=== PATIENT | female | born 1945 | race Caucasian/White ===

== ENCOUNTER 2017-10-07 10:17 | Inpatient (IN) | payer MEDICARE ==
[2017-10-07 10:50] LABS: INR-International Normal Ratio 1.5
[2017-10-07 10:52] LABS: Actual Bicarbonate (HCO3a) 22.6 mEq/L (22-26); CO2 Tension 42.5 mmHg (35.0-45.0); Hematocrit-ABG 33.4 % (36.0-47.0); Hemoglobin (Hb) 9.9 g/dL (12.0-16.0); O2 Tension (PaO2) 91.2 mmHg (80.0-100.0); pH, Arterial 7.34 (7.35-7.45)
[2017-10-07 10:53] LABS: ALV-art Gradient 69.575 (0-20); Analyzer IN Cardio ER; Calcium, Ionized 1.2 mmol/L (1.12-1.30); Puncture Site RRA
--- NOTE | 2017-10-07 11:06 | RAD ---
PORTABLE SUPINE CHEST ONE VIEW: HISTORY: A 72-year-old female with altered mental status, unresponsive. COMPARISON: 10/20/2009 FINDINGS: Endotracheal tube is in a satisfactory location. There is cardiomegaly. Monitor leads overly the ch est. There are some mild increased markings bilaterally, possibly mild vascular congestion, but no c onfluent pneumonia, overt edema, or significant pleural effusion. IMPRESSION: 1. Cardiomegaly with probable mild vascular congestion. 2. Endotracheal tube in satisfactory location. 3. No evidence for pneumonia or overt edema. 4. Overall stable from prior study. POS: [facility]
[2017-10-07 11:08] LABS: #Lymphocytes 0.5 thou/uL (1.20-3.40); #Monocytes 0.5 thou/uL (0.11-0.59); #Neutrophils 3.8 thou/uL (1.40-6.50); %Basophils 0.2 % (0.0-1.0); %Eosinophils 0.1 % (0.0-10.0); %Lymphocytes 10.5 % (21.0-51.0); %Monocytes 9.8 % (0.0-10.0); %Neutrophils 79.4 % (42.0-75.0); Hemoglobin 10.1 g/dL (12.0-16.0); Mean Corpuscular HGB CONC 32.3 g/dL (32.0-36.0); Mean Corpuscular Hemoglobin 25.8 pg (27.0-31.0); Mean Corpuscular Volume 79.7 fl (81.0-99.0); Mean Platelet Volume 10.2 fL (7.4-10.4); Platelet Count 101 thou/uL (130-400); RBC Distribution Width 18.7 % (11.5-14.5); Red Blood Cell (RBC) Count 3.93 mill/uL (4.20-5.40); White Blood Cell (WBC) Count 4.8 thou/uL (4.8-10.8)
[2017-10-07 11:10] LABS: CKMB 0.7 ng/mL (0-6.6); Troponin I Less than 0.010 ng/mL (< 0.028)
[2017-10-07 11:19] LABS: ALT (SGPT) 16 U/L (8-55); AST (SGOT) 27 U/L (5-34); Albumin 3.5 g/dL (3.4-4.8); Alkaline Phosphatase 89 U/L (40-150); Anion Gap 8 mmol/L (10-20); BUN (Urea Nitrogen) 17 mg/dL (9.8-20.1); Bilirubin, Total 1.8 mg/dL (0.2-1.2); CK (CPK) 46 U/L (29-168); Calc. Creatinine Clearance 0 mL/min (70-130); Calcium 8.7 mg/dL (7.8-10.44); Carbon Dioxide 22 mmol/L (23-31); Chloride 110 mmol/L (98-107); Estimated GFR-MDRD Greater than 90; Globulin 3.3 g/dL (2.4-3.5); Glucose 140 mg/dL (83-110); Lipase 18 U/L (8-78); Magnesium 1.7 mg/dL (1.6-2.6); Potassium 4.1 mmol/L (3.5-5.1); Protein, Total 6.8 g/dL (6.0-8.3); Sodium 136 mmol/L (136-145)
[2017-10-07 11:34] LABS: Bilirubin Negative (Negative); Blood, Urine Negative (Negative); Clarity CLOUDY (Clear); Glucose, Urine (Dipstick) Negative (Negative); Leukocyte Large (Negative); Nitrite Negative (Negative); Protein, Urine (Dipstick) Trace mg/dL (Neg-Trace); Specific Gravity, Urine 1.017 (1.002-1.036); pH, Urine 6.5 (5.0-9.0)
[2017-10-07 11:38] LABS: Bacteria/HPF 4+ HPF (None Seen); Hyaline Casts/LPF 4-6 HYALINE CAST LPF (0-3 Hyaline); Pathc Cast-AUWi Flag 0.43 (0-2.49); RBC/HPF 0-3 HPF (0-3); Squamous Epithelial None Seen HPF (0-3)
[2017-10-07 11:39] LABS: Alcohol Less than 10 mg/dL (Less than 10)
--- NOTE | 2017-10-07 11:49 | CT ---
BRAIN CT WITH IV CONTRAST: HISTORY: A 72-year-old female with a history of altered mental status, presents to the ED via EMS, unresponsiv e. COMPARISON: 10/20/2009 FINDINGS: Minimal posterior right ethmoid sinus mucosal disease. The mastoids appear clear. There is stable a ppearing atrophy, chronic white matter ischemic changes, and some encephalomalacic changes in the lef t parietal region. No focal mass or midline shift. No intraaxial or extraaxial hemorrhage. Stable appearance from prior study. IMPRESSION: 1. Stable atrophy, chronic white matter ischemic changes, and left parietal cortical encephalomalaci c change. 2. No mass, bleed, or other acute process. 3. Minimal right ethmoid sinus mucosal disease. POS: [facility]
[2017-10-07 11:51] LABS: Medtox Reader # READER 1
[2017-10-07 11:52] LABS: Amphetamine Not Detected (NotDetected); Barbiturates Screen Not Detected (NotDetected); Benzodiazepine Screen Not Detected (NotDetected); Cocaine Metabolite Screen Not Detected (NotDetected); Medtox Control Line Valid? VALID (VALID); Methadone Not Detected (NotDetected); Methamphetamine Not Detected (NotDetected); Opiate Screen Not Detected (NotDetected); Oxycodone Screen Not Detected (NotDetected); Phencyclidine (PCP) Not Detected (NotDetected); THC/Cannabinoid Screen Not Detected (NotDetected); Tricyclic Screen Not Detected (NotDetected)
[2017-10-07 11:58] LABS: Acetaminophen Less than 6.0 mcg/mL (10.0-30.0); Salicylate Less than 8.0 mg/dL (15.0-30.0)
[2017-10-07 12:15] LABS: Digoxin 0.53 ng/mL (0.8-2.0)
[2017-10-07] MEDS ORDERED: Propofol 1,000 MG/100 ML VIAL IV PRN (13:53)
[2017-10-07] MEDS ORDERED: Morphine 4 MG/ML VIAL SLOW IVP PRN (13:53)
[2017-10-07] MEDS ORDERED: Lorazepam 2 MG/ML VIAL SLOW IVP PRN (13:53)
[2017-10-07] MEDS ORDERED: Propofol BOLUS 1,000 MG/100 ML VIAL IV PRN ×2 (13:53)
[2017-10-07] MEDS ORDERED: Fentanyl BOLUS 250 ML IVPB PRN ×2 (13:53)
[2017-10-07] MEDS ORDERED: fentaNYL Citrate/PF 2,000 MCG in Sodium Chloride 0.9% 60 ML IV SCH (13:53)
[2017-10-07 14:14] VITALS: BMI 23.7
[2017-10-07] MEDS: Sodium Chloride 0.9% 1,000 ML IV SCH ×2 (14:23→20:20)
[2017-10-07 14:41] LABS: Troponin I Less than 0.010 ng/mL (< 0.028)
[2017-10-07] MEDS ORDERED: Ondansetron HCl/PF 4 MG/2 ML Vial IVP PRN (14:55)
[2017-10-07] MEDS ORDERED: CCU Electrolyte Replacement 1 EACH FS SCH (15:00)
[2017-10-07] MEDS ORDERED: Potassium Chloride 40 MEQ in Premix Bag 1 BAG IVPB PRN (15:14)
[2017-10-07] MEDS: cefTRIAXone\\ROCEPHIN 1 GM in Syringe 10 ML IVPB SCH (15:14)
[2017-10-07] MEDS ORDERED: Potassium Phosphate 12 MMOL in Sodium Chloride 0.9% 250 ML 250 ML IV PRN (15:14)
[2017-10-07] MEDS ORDERED: Potassium Phosphate 15 MMOL in Sodium Chloride 0.9% 250 ML 250 ML IV PRN (15:14)
[2017-10-07] MEDS ORDERED: CCU ELECTROLYTE REPLACEMENT PROTOCOL FS PRN (15:14)
[2017-10-07] MEDS ORDERED: Potassium Phosphate 9 MMOL in Sodium Chloride 0.9% 100 ML IVPB PRN (15:14)
[2017-10-07] MEDS ORDERED: Potassium Chloride 20 MEQ TAB PO PRN ×2 (15:14)
[2017-10-07] MEDS ORDERED: Magnesium 2 GM/NS 0.9% 100 ML 2 GM in Premix Bag 1 BAG IVPB PRN (15:14)
[2017-10-07] MEDS ORDERED: Potassium Chloride 40 MEQ in Sodium Chloride 0.9% 250 ML 250 ML IVPB PRN (15:14)
[2017-10-07] MEDS ORDERED: Magnesium Oxide 400 MG TAB PO PRN ×2 (15:14)
[2017-10-07 17:32] LABS: Troponin I Less than 0.010 ng/mL (< 0.028)
--- NOTE | 2017-10-07 18:45 | HP ---
PRIMARY CARE PHYSICIAN: Unknown. CHIEF COMPLAINT: Found down at home. HISTORY OF PRESENT ILLNESS: The history of present illness is extremely limited as the patient is un able to give a history. She is currently intubated. The son who was at the bedside earlier who spok e with the emergency room physician was also not very familiar with the patient's medical history. Zain Umana is a 72-year-old female, the past medical history of which is currently unknown. Apparentl y, she was last known normal yesterday. Her son had called her to check on her and apparently she wa s in the process of having some type of evaluation, it looks like for weight loss, that is involuntar y weight loss, in which she was going to have a CT scan of the chest, abdomen, and pelvis, which was ordered by Dr. Michaud in our system. Her son called to make sure that she had taken the contrast pro perly and she apparently was okay yesterday. Then, he called again this morning to check on her and she did not answer the phone. He left a message and she never returned the call that is when he kevin me concerned and EMS was sent out to the house and she was found in her bed. There was no sign of an y trauma and she was not arousable. She was apparently intubated at the scene and sent to the emerge ncy room for evaluation. In the ER, she had a CT scan of the brain, which was negative for any acute process other than some chronic white matter ischemic changes. She was found to be in atrial fibril lation; however, her rate was controlled. Other lab results revealed a mild anemia and an elevated a mmonia level of 136. Her transaminases were negative or normal; however, her total bilirubin was sli ghtly elevated at 1.8. Currently, it is unclear why she is obtunded, but she is being admitted to [facility] ICU for further evaluation. No other history is obtainable. REVIEW OF SYSTEMS: Also unobtainable as the patient is intubated and obtunded and her son has since left the hospital. PAST MEDICAL HISTORY: Extrapolated from old records, it appears as if she has a history of atrial fi brillation, possible cerebrovascular accident and it appears as if she has been evaluated for cirrhos is. She is on medication for osteoporosis. PAST SURGICAL HISTORY: She has had a cataract and a lipoma of the breast removed. ALLERGIES: IBUPROFEN. SOCIAL HISTORY: Unobtainable. The patient is intubated, unable to talk. FAMILY HISTORY: Also unobtainable. MEDICATIONS: Unknown at this time. Reportedly, her son is going back to get them. In review of her records, she 2 years ago had been on Aldactone, this is in 2016, 100 mg daily, vitamins, om eprazole 40 mg daily, metoprolol XL 25 twice a day, Lasix 40 mg daily, diltiazem 30 mg twice daily, d igoxin 0.25 mg daily, Fosamax 70 mg once a week, and albuterol and again that was back in 2016. PHYSICAL EXAMINATION: GENERAL: She is obtunded; however, she does withdraw to pain. She is moving all her extremities. H er pupils are reactive. VITAL SIGNS: Her blood pressure initially was 84/55, currently it is 114/60, heart rate is ranging f rom the 80s to the low 100s. HEENT: Again, her pupils are reactive. Her sclerae are anicteric. NECK: There was no adenopathy or bruits. LUNGS: Essentially clear to auscultation. I did not appreciate any wheezing or rales. CARDIOVASCULAR: Heart rate is irregularly irregular. There were no murmurs, clicks, or rubs. ABDOMEN: Soft, it is nontender, nondistended. Positive for bowel sounds. EXTREMITIES: She has got trace edema. NEUROLOGIC: Again, neurologically, moving extremities. She withdraws to pain. Her reflexes are int act and symmetric. There are no skin lesions. LABORATORY RESULTS: Sodium 136, potassium 4.1, chloride is 110, CO2 is 22, BUN of 17, creatinine 0.6 2, glucose is 140, calcium 8.7, magnesium 1.7, lactic acid was 1.4, total bilirubin 1.8, AST 27, ALT 16, alkaline phosphatase is 89. White blood cell count is 4.8, hemoglobin 10.1, hematocrit is 31.3, platelet count was 101, MCV was 79.7. Urinalysis, she did have large leukocyte esterase and 4+ bacte duncan, too numerous to count wbc's. Urine drug screen was essentially negative. EKG again was atrial fibrillation, the rate in the 80s. CT scan of the brain was positive for some chronic ischemic disea se. ASSESSMENT AND PLAN: 1. This is a 72-year-old female that presents to the emergency room with altered mental status and ob tundation. The most likely etiology would be due to hepatic encephalopathy; however, it is unclear w hether or not she has a known history of cirrhosis, gleaning through her records, it appears as if hieu cox may have once been told she was cirrhotic and one of her medications at least in her records was sp ironolactone, which is commonly used in patients with cirrhosis. However, this will need to be furth er investigated. She is in atrial fibrillation, which could put her at risk for a massive stroke; ho be, on her CT findings, depending on what time she became altered is not consistent with cerebrova scular accident and it does not appear to be sepsis or primarily cardiac or pulmonary in origin. She will be admitted to the ICU. She has already been seen by [facility] technical specialist. We will contin ue her on ventilator support and defer further management to Pulmonary and Critical Care. 2. With regard to possible hepatic encephalopathy with elevated serum ammonia level, she will be see n by Gastroenterology, unclear whether or not to start her on lactulose possibly via NG tube. We cathy l defer further management and workup to GI. 3. With regard to atrial fibrillation, I suspect this is likely chronic. It is unclear whether or n ot she had been on any type of anticoagulation. Her INR was slightly elevated at 1.5. We will go ah ead and hold off on any anticoagulation until further information regarding her liver function is kar ilable. Her rate seems to be controlled at this time and we will continue to monitor and place her m edications for rate control as needed. 4. In general, we will continue to trend her cardiac enzymes. She does appear to have urinary tract infection and the urine culture has been obtained. We will go ahead and cover her with Rocephin in the interim. I believe she has been given a dose of this in the ER. Further recommendations are to follow.
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
[2017-10-07] MEDS ORDERED: Famotidine/PF 20 mg/2ml Vial SLOW IVP SCH (21:00)
--- NOTE | 2017-10-08 01:27 | CON ---
DATE OF CONSULTATION: 10/07/2017 GI INPATIENT CONSULTATION NOTE REQUESTING PHYSICIAN: Dr. Mauricio Macias. REASON FOR CONSULTATION: Hepatic encephalopathy. HISTORY OF PRESENT ILLNESS: Melanie Umana is a 72-year-old woman seen in the past by my GI colleag ue, Dr. Tramaine Michaud. 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 EGD in 2010 showed no esophageal varices. She also has a history of atrial fibrillation and osteoporosis. Thfreda h her cirrhosis was diagnosed about 8 years ago, she had not followed up with Dr. Michaud within the p ast 7 years. There has evidently been no recent alcohol use. She is actually seen by one of our Karlie castelan assistants in the clinic just 2 days ago for evaluation of a recent weight loss and nausea. S he was found to have labs within the past week remarkable really only for mild thrombocytopenia, but normal LFTs, normal albumin. A CT of the chest, abdomen, and pelvis is planned to work up the weight loss. However, the patient was admitted to the hospital this morning after having been found down at home. She has no prior history of overt hepatic encephalopathy, but she was found down and essentially obt unded at home. She was brought to the hospital. She is endotracheally intubated. She is not on any sedation, at this point she is somewhat responsive to voice and can track movements with her eyes, b ut she is unable to answer any questions. She is quite sleepy. Lab workup demonstrated elevated amm onia level to 136. Negative tox screen. Total bilirubin 1.8, but otherwise still normal LFTs, good renal function. INR only 1.5. Urinalysis is suggestive of UTI and she is being treated now with IV ceftriaxone. She has been hemodynamically stable, doing well on the ventilator. REVIEW OF SYSTEMS: Unable to obtain as the patient is not verbally communicate at this time. PAST MEDICAL HISTORY: Cryptogenic cirrhosis diagnosed in 2009, hereditary hemorrhagic telangiectasia s causing epistaxis, EGD in 2010 with no esophageal varices, atrial fibrillation, osteoporosis. ALLERGIES: IBUPROFEN. OUTPATIENT MEDICATIONS: Lasix 40 mg daily, spironolactone 100 mg daily, alendronate, omeprazole 40 m g daily, diltiazem 30 mg t.i.d., digoxin and metoprolol. INPATIENT MEDICATIONS: IV Rocephin, IV famotidine. SOCIAL HISTORY: Unable to obtain from the patient. Evidently, she has not had any alcohol recently. FAMILY HISTORY: Unable to obtain from the patient. Per our office records, there is no family histo ry of liver disease. PHYSICAL EXAMINATION: VITAL SIGNS: Temperature 98.5, pulse 85, blood pressure 99/48, 97% oxygen saturation on room air. GENERAL: The patient is somnolent, but quickly falls asleep again. She is able to shake her head no when asked if she is in pain or she remembers what happened. SKIN: No jaundice, no rash visible or palpable. EYES: No scleral icterus. Extraocular movements are intact. ENT: She is endotracheally intubated. Nasogastric tube on low intermittent suction, suctioning out some clear gastric contents. LYMPH: No submandibular, supraclavicular lymphadenopathy. THYROID: Nontender to palpation. HEART: Regular rate and rhythm. LUNGS: Clear lung sounds on the ventilator. ABDOMEN: Nondistended. Bowel sounds present, soft, nontender to palpation throughout. No masses or organomegaly appreciated. EXTREMITIES: No peripheral edema. VESSELS: Radial pulses 2+ bilaterally. NEUROLOGICAL: Cranial nerves II through XII intact bilaterally. No focal deficits. LABORATORY STUDIES: WBC 4.8, hemoglobin 10.1, platelets 101. INR 1.5, BUN 17, creatinine 0.62, tota l bilirubin 1.8, alkaline phosphatase 89, AST 27, ALT 16, albumin 3.5. Ammonia 136. BNP 349. Lacti c acid only 1.4. Troponin negative x3. TSH 0.87. Alcohol level negative. Acetaminophen level nega tive. Urine drug screen negative. IMAGING STUDIES: Chest x-ray showed cardiomegaly and mild pulmonary vascular congestion. CT of the head shows no acute process. ASSESSMENT AND PLAN: 1. Altered mental status. 2. Hepatic encephalopathy, this would be her first presentation of this. 3. Cryptogenic cirrhosis, stage IV based on liver biopsy 8 years ago. 4. Recent weight loss of 40 pounds over the past 6 months. The patient's presentation is certainly consistent with overt hepatic encephalopathy with such an elevated ammonia. Interestingly, the patie nt has no prior history of this. It does appear she has a urinary tract infection and I suppose this could have precipitated it. We would recommend continuing to treat the UTI. She is currently on Ro cephin. Lactulose should be started per the nasogastric tube and I have ordered this at 30 mg 4 time s daily. We will follow along for her mental status. With regard to the recent weight loss, this was going to be worked up on an outpatient basis. Depend ing on the patient's clinical course, we could consider going ahead and getting that CT of the chest, abdomen, and pelvis while she is inpatient. Note recent AFP was normal. Thank you for the consultation. Please call back with questions or concerns.
[2017-10-08] MEDS: Pantoprazole 40 MG VIAL IVP SCH ×4 (03:45→21:39)
[2017-10-08 04:27] LABS: INR-International Normal Ratio 1.5; Prothrombin Time 18.1 SEC (12.0-14.7)
[2017-10-08 08:23] LABS: Actual Bicarbonate (HCO3a) 22.2 mEq/L (22-26); Base Excess (BEa) -0.9 mEq/L (0 (+/-) 2.5); O2 Tension (PaO2) 72.8 mmHg (80.0-100.0); pH, Arterial 7.47 (7.35-7.45)
[2017-10-08 08:24] LABS: Calcium, Ionized 1.1 mmol/L (1.12-1.30); Hematocrit-ABG 31.3 % (36.0-47.0); Hemoglobin (Hb) 9.3 g/dL (12.0-16.0); Puncture Site RBA
--- NOTE | 2017-10-08 09:32 | PDOC.PN ---
- Subjective Encounter Start Date: 10/08/17 Encounter Start Time: 09:30 Ms. Umana is awake and alert, she was seen in follow-up of hepatic encephalopathy. She is intubated and following commands. She indicates no problems this morning. - Objective Resuscitation Status: Resuscitation Status FULL:Full Resuscitation MAR Reviewed: Yes Vital Signs & Weight: Vital Signs (12 hours) Temp Pulse Resp BP 10/08/17 09:00 86 111/57 L 10/08/17 04:00 99.6 F 28 H 10/08/17 02:00 16 10/08/17 00:00 99.2 F 18 10/07/17 22:00 22 H Weight Admit Weight 138 lb 3.677 oz Weight 138 lb 3.677 oz Most Recent Monitor Data Heart Rate from ECG 99 NIBP 112/49 NIBP BP-Mean 90 Respiration from ECG 20 SpO2 96 I&O: 10/07/17 10/08/17 10/09/17 06:59 06:59 06:59 Intake Total 1138 Output Total 1225 Balance -87 Result Diagrams: 10/07/17 10:57 10/07/17 10:38 Phys Exam - Physical Examination HEENT: PERRLA, sclera anicteric Respiratory: no wheezing, no rales, no rhonchi, clear to auscultation bilateral Cardiovascular: RRR, no significant murmur, no rub Gastrointestinal: soft, non-tender, positive bowel sounds Musculoskeletal: edema present trace pedal edema Neurological: non-focal, moves all 4 limbs Dx/Plan (1) Hepatic encephalopathy Code(s): K72.90 - HEPATIC FAILURE, UNSPECIFIED WITHOUT COMA Status: Acute (2) Cirrhosis, cryptogenic Code(s): K74.69 - OTHER CIRRHOSIS OF LIVER Status: Acute (3) UTI (urinary tract infection) Status: Acute (4) Atrial fibrillation Code(s): I48.91 - UNSPECIFIED ATRIAL FIBRILLATION Status: Acute - Plan * Hepatic encephalopathy- she has improved with Lactulose. Plan is for extubation this morning * UTI- urine culture is growing E. Coli- will continue Rocephin- pending culture results * Cirrhosis- this was diagnosed 8 years ago, GI is managing * AFIB- her heart rate is stable- no anticoagulation ( she has mild coagulopathy - likely from cirrhosis .
--- NOTE | 2017-10-08 12:06 | PRG ---
DATE OF SERVICE: 10/08/2017 SUBJECTIVE: Ms. Umana was able to be extubated a couple of hours ago. She is breathing well and sl eeping comfortably. She remains somnolent, but is more easily arousable. She is able to tell me her name and date of as well as her place of residence. She denies any abdominal pain. She canno t remember what happened to precipitate her admission. She is still slurring her speech and seems to have some word finding difficulty. Bedside swallow evaluation is pending. OBJECTIVE: VITAL SIGNS: Pulse 101, blood pressure 126/61, 97% oxygen saturation on 2 liters nasal cannula, temp erature is 97.9. GENERAL: Somnolent but arousable, no acute distress. HEART: Regular rate and rhythm. LUNGS: Clear to auscultation bilaterally. ABDOMEN: Soft and nontender to palpation throughout. EXTREMITIES: No peripheral edema. MENTAL: She is able to tell me her name and her date of as well as her place of residence, but she cannot recall any recent events. She is able to follow simple commands, but continues to slur h er speech with some word finding difficulty. There is no asterixis at this time. LABORATORY STUDIES: INR 1.5. Troponins negative. ASSESSMENT AND PLAN: 1. Hepatic encephalopathy, improving. 2. Urinary tract infection. This is being treated. This appears to be the likely precipitant of he r first episode of hepatic encephalopathy. 3. Cryptogenic cirrhosis. I advise continuing lactulose switch this to oral once she has completed her swallowing evaluation. We would start out with 30 grams t.i.d. p.r.n. as needed for a 2-3 loose bowel movements per day.
--- NOTE | 2017-10-08 12:42 | PRG ---
DATE OF SERVICE: 10/08/2017 Ms. Umana is awake and alert quickly when I walked in the room today. PHYSICAL EXAMINATION: VITAL SIGNS: She is afebrile, heart rate 98, blood pressure 131/64, respiratory rate is 21. LUNGS: Clear. HEART: Regular rhythm. ABDOMEN: Soft. EXTREMITIES: Without asymmetry. There is no repeat ammonia today. There is no lab today. Blood gas 7.47, CO2 of 31, pO2 of 72. Sodium 143, potassium 3.4, chloride 108. Ionized calcium 1.1 on the blood gas. IMPRESSION: 1. Status post intubation for altered mental status with hepatic encephalopathy, clinically improved . 2. Cirrhosis of unclear etiology. There is a note in the past that she was a heavy alcohol user. PLAN: Extubation. This has been done successfully. She will continue in the Critical Care Unit unt ma tomorrow. If she is stable she may move out of the unit tomorrow. Critical care time 30 minutes. Met with family and answered questions.
[2017-10-08] MEDS: cefTRIAXone\\ROCEPHIN 1 GM in Syringe 10 ML IVPB SCH (14:36)
--- NOTE | 2017-10-08 15:08 | PQF ---
CLINICAL DOCUMENTATION IMPROVEMENT CLARIFICATION FORM: ICD-10 Updated PLEASE DO AN ADDENDUM TO THE PROGRESS NOTE WITH ANY DOCUMENTATION UPDATES OR ADDITIONS AND CARRY THROUGH TO DC SUMMARY. THANK YOU. DATE: 10/08/17 ATTN: Dr. Kramer Please provide a response below if a more specific term indicating a diagnosis and/or acuity level for this condition can be identified. Please exercise your independent, professional judgment in responding to the clarification form. Clinical indicators are provided at the bottom of this form for your review. Thank you. [ ] Coma / Comatose [ ] Drowsiness [ ] Somnolence [ ] Does not apply to this patient [ ] Unable to determine [ X ] Other diagnosis: ___Hepatic encephalopathy from cryptogenic cirrhosis The following CLINICAL INDICATORS - SIGNS / SYMPTOMS are present in the medical record: ER REPORT: PRESENTS FOR EVALUATION OF UNRESPONSIVENESS. PER EMS GCS 3 PT, COMATOSE, UNRESPONSIVE INTUBATED IN FIELD FOR LOW GCS. ( REPORTED 3, BUT WAS FOUND TO HAVE SOME GRIMACE WITH PAINFUL STIMULI) H&P: ELEVATED AMMONIA LEVEL OF 136 PRESENTS TO ER WITH AMS AND OBTUNDATION. POSSIBLE HEPATIC ENCEPHALOPATHY RISKS: H&P: PRESENTS TO ER WITH ALTERED MENTAL STATUS AND OBTUNDATION. GI CONSULT: CRYPTOGENIC CIRRHOSIS DX IN 2009. HEPATIC ENCEPHALOPATHY TREATMENT: ORDER 10/07: RESP: VENT CONTINUOUS GI CONSULT CPOE 10/07: LACTULOSE 30 GM PO QID Thank you, Desiree (This form is maintained as a part of the permanent medical record) 2014 [employer]. All Rights Reserved Desiree Murphy RN, BSN [email or web address] Office: [phone] [facility]
--- NOTE | 2017-10-09 09:14 | PDOC.PN ---
- Subjective Encounter Start Date: 10/09/17 Encounter Start Time: 09:13 Ms. Umana was seen today in follow-up. She is now extubated, and awake and alert. She is confused, however. She had to be prompted on the year and month, she did know who is President. She did not remember any of the event leading to her hospitalization. - Objective Resuscitation Status: Resuscitation Status FULL:Full Resuscitation MAR Reviewed: Yes Vital Signs & Weight: Vital Signs (12 hours) Temp Pulse Resp Pulse Ox 10/09/17 08:00 98.9 F 10/09/17 07:53 98.9 F 90 20 97 10/09/17 04:00 99.0 F 10/09/17 00:00 98.5 F Weight Admit Weight 138 lb 3.677 oz Weight 135 lb 9.349 oz Most Recent Monitor Data Heart Rate from ECG 87 NIBP 102/51 NIBP BP-Mean 72 Respiration from ECG 23 SpO2 95 I&O: 10/08/17 10/09/17 10/10/17 06:59 06:59 06:59 Intake Total 1138 2743 120 Output Total 1225 1179 105 Balance -87 1564 15 Result Diagrams: 10/07/17 10:57 10/07/17 10:38 Phys Exam - Physical Examination HEENT: PERRLA Respiratory: no wheezing, no rales, no rhonchi, clear to auscultation bilateral Cardiovascular: no significant murmur, no rub, irregular Gastrointestinal: soft, non-tender, no distention, positive bowel sounds Musculoskeletal: no edema Neurological: normal sensation, moves all 4 limbs Dx/Plan (1) Hepatic encephalopathy Code(s): K72.90 - HEPATIC FAILURE, UNSPECIFIED WITHOUT COMA Status: Acute (2) Cirrhosis, cryptogenic Code(s): K74.69 - OTHER CIRRHOSIS OF LIVER Status: Acute (3) UTI (urinary tract infection) Status: Acute (4) Atrial fibrillation Code(s): I48.91 - UNSPECIFIED ATRIAL FIBRILLATION Status: Acute - Plan * Hepatic Encephalopathy- much improved. She is now extubated, continue Lactulose. * UTI- urine culture is growing E. Coli, which is sensitive to Rocephin- will continue * AFIB- her heart rate is controlled- no anticoagulation *
--- NOTE | 2017-10-09 09:37 | PRG ---
DATE OF SERVICE: 10/09/2017 SUBJECTIVE: The patient is doing reasonably well, albeit somewhat confused. OBJECTIVE: VITAL SIGNS: Temperature is 98.9, pulse 87, blood pressure 102/51. A 24-hour intake 2743, output 11 79. HEENT: Unremarkable. NECK: No JVD. CHEST: Clear. CARDIAC: S1, S2 regular. ABDOMEN: Soft. EXTREMITIES: No edema. Urine culture is growing E. coli. LABORATORY DATA: No new labs were obtained today. ASSESSMENT: 1. Status post acute respiratory failure related to hepatic encephalopathy. 2. Cryptogenic cirrhosis. 3. Urinary tract infection. PLAN: The patient is being moved to the medical floor. She is being treated for urinary tract infec tion with Rocephin. We will ask physical therapy to see her. She is continuing with lactulose.
--- NOTE | 2017-10-09 12:34 | PRG ---
SUBJECTIVE: Ms. Umana's mental status has continued to improve significantly. She is now awake and alert, knows where she is and can converse readily. She still feels a little bit sleepy. She is ea ting well. She has not had a bowel movement despite getting lactulose every 6 hours. OBJECTIVE: VITAL SIGNS: Temperature 98.9, pulse 110, blood pressure 108/61, and 91% oxygen saturation on 2 lite rs nasal cannula. GENERAL: No acute distress. HEART: Irregular, borderline tachycardia. LUNGS: Clear to auscultation bilaterally. ABDOMEN: Bowel sounds present, soft and nontender. EXTREMITIES: No peripheral edema. LABORATORY STUDIES: No new labs today. ASSESSMENT AND PLAN: 1. Hepatic encephalopathy, clinically improving. 2. Cryptogenic cirrhosis, otherwise stable. 3. Urinary tract infection, being treated. The patient had significant improvement in her hepatic e ncephalopathy. No asterixis today. Would continue the lactulose every 6 hours at this time. Still, she has not had a bowel movement since admission. It is possible the urinary tract infection is wha t precipitated this episode. Upon hospital discharge, the patient will continue to need to take the lactulose, titrated to 2-[address] Michaud had planned for her to have a CT of the chest, abdomen and pelvis with contrast on an outp atient basis this week, as workup for recent weight loss. From my perspective, this could be perform ed while she is an inpatient, alternatively could be deferred back to the outpatient setting.
[2017-10-09] MEDS: cefTRIAXone\\ROCEPHIN 1 GM in Syringe 10 ML IVPB SCH (16:20)
[2017-10-09] MEDS ORDERED: Sodium Chloride 0.9% 20 ML ONE (20:22)
[2017-10-09] MEDS: Pantoprazole 40 MG VIAL IVP SCH ×2 (20:50)
[2017-10-10] MEDS: Digoxin 0.25 MG TAB PO SCH (09:41)
--- NOTE | 2017-10-10 10:25 | PDOC.PN ---
- Subjective Encounter Start Date: 10/10/17 Encounter Start Time: 10:19 Dong Brothers was seen today in follow-up. She does not have any complaints this morning. She denies abdominal pain, no nausea or vomiting - Objective Resuscitation Status: Resuscitation Status FULL:Full Resuscitation MAR Reviewed: Yes Vital Signs & Weight: Vital Signs (12 hours) Temp Pulse Resp BP BP Pulse Ox 10/10/17 09:41 115 H 10/10/17 08:00 98.8 F 104 H 16 107/52 L 97 10/10/17 04:00 98.4 F 108 H 17 109/53 L 92 L 10/10/17 00:00 95 10/09/17 23:51 98.8 F 99 16 98/55 L 96 Weight Admit Weight 138 lb 3.677 oz Weight 138 lb 11.2 oz Most Recent Monitor Data Heart Rate from ECG 122 NIBP 118/59 NIBP BP-Mean 78 Respiration from ECG 19 SpO2 93 I&O: 10/09/17 10/10/17 10/11/17 06:59 06:59 06:59 Intake Total 2743 1020 Output Total 1179 1455 Balance 1564 -435 Result Diagrams: 10/07/17 10:57 10/07/17 10:38 Phys Exam - Physical Examination HEENT: PERRLA Respiratory: no wheezing, no rales, no rhonchi, clear to auscultation bilateral Cardiovascular: no significant murmur, no rub, irregular Gastrointestinal: soft, non-tender, no distention, positive bowel sounds Musculoskeletal: no edema Dx/Plan (1) Hepatic encephalopathy Code(s): K72.90 - HEPATIC FAILURE, UNSPECIFIED WITHOUT COMA Status: Acute (2) Cirrhosis, cryptogenic Code(s): K74.69 - OTHER CIRRHOSIS OF LIVER Status: Acute (3) UTI (urinary tract infection) Status: Acute (4) Atrial fibrillation Code(s): I48.91 - UNSPECIFIED ATRIAL FIBRILLATION Status: Acute - Plan * Hepatic Encephalopathy- clinically improved- Continue Lactulose * AFIB- her heart rate is a bit elevated- however I spoke with her son over the phone, and he found her medication list. She has not been receiving Metoprolol. - will re-start this * UTI- continue Rocephin, and will transition her to an oral antibiotic at discharge * CT- scan of the chest abdomen and pelvis was planned by Dr. Michaud to evaluate abnormal weight loss- will order this during the hospital stay * Agree with PT * Will re-start her home medications.
[2017-10-10 10:36] LABS: #Lymphocytes 0.8 thou/uL (1.20-3.40); #Monocytes 0.6 thou/uL (0.11-0.59); #Neutrophils 3.3 thou/uL (1.40-6.50); %Basophils 0.6 % (0.0-1.0); %Eosinophils 0.9 % (0.0-10.0); %Lymphocytes 16.8 % (21.0-51.0); %Neutrophils 68.7 % (42.0-75.0); Hemoglobin 9.6 g/dL (12.0-16.0); Mean Corpuscular HGB CONC 31.3 g/dL (32.0-36.0); Mean Corpuscular Hemoglobin 25.2 pg (27.0-31.0); Mean Corpuscular Volume 80.3 fl (81.0-99.0); Mean Platelet Volume 4.6 fL (7.4-10.4); Platelet Count 86 thou/uL (130-400); Red Blood Cell (RBC) Count 3.83 mill/uL (4.20-5.40); White Blood Cell (WBC) Count 4.8 thou/uL (4.8-10.8)
[2017-10-10 10:54] LABS: Anion Gap 8 mmol/L (10-20); BUN (Urea Nitrogen) 7 mg/dL (9.8-20.1); Calc. Creatinine Clearance 90 mL/min (70-130); Calcium 8.9 mg/dL (7.8-10.44); Carbon Dioxide 24 mmol/L (23-31); Chloride 107 mmol/L (98-107); Estimated GFR-MDRD Greater than 90; Glucose 125 mg/dL (83-110); Potassium 3.1 mmol/L (3.5-5.1); Sodium 136 mmol/L (136-145)
--- NOTE | 2017-10-10 12:58 | PRG ---
DATE OF SERVICE: 10/10/2017 SUBJECTIVE: Ms. Umana is feeling pretty well today. She feels mentally clear and alert. No abdomi nal pain, nausea, or vomiting. She is drinking contrast for planned CT of the abdomen and pelvis lat er today. OBJECTIVE: VITAL SIGNS: Temperature 98.8, pulse 115, blood pressure 107/58, 97% oxygen saturation on room air. GENERAL: No acute distress. HEART: Regular rate and rhythm. LUNGS: Clear to auscultation bilaterally. ABDOMEN: Mild distention. Bowel sounds present, soft, nontender to palpation. EXTREMITIES: No peripheral edema. LABORATORY STUDIES: WBC 4.8, hemoglobin 9.6, and platelets 86. Sodium 136, potassium 3.1, BUN 7, cr eatinine 0.55. Ammonia level down to 42, glucose 125. ASSESSMENT AND PLAN: 1. Hepatic encephalopathy, appears to be resolved, now on lactulose. This should be continued. 2. Cryptogenic cirrhosis, otherwise stable. 3. Urinary tract infection, being treated. 4. Weight loss. The patient is planning for CT of the abdomen and pelvis later today, has had been arranged by Dr. Michaud in the outpatient setting. Please call back with questions or concerns.
--- NOTE | 2017-10-10 13:57 | PRG ---
DATE OF SERVICE: 10/10/2017 SUBJECTIVE: The patient is much more alert and awake this morning. OBJECTIVE: VITAL SIGNS: Temperature 97.6, pulse 87, respiration 16, O2 sat 99%, blood pressure 117/58. HEENT: Unremarkable. NECK: No JVD. LUNGS: Clear. CARDIOVASCULAR: S1, S2 regular. ABDOMEN: Soft. EXTREMITIES: No edema. LABORATORY DATA: White blood cell count 10.8, hematocrit 29.1, platelet count 221. Sodium 137, pota ssium 3.7, chloride 99, CO2 29, BUN 21, creatinine 3.9, glucose 176. ASSESSMENT: 1. Chronic renal failure. 2. Abnormal lung density. PLAN: Repeat chest x-ray or CT scan in about 3 weeks. He is continuing antibiotics. I think he is probably safe for discharge by tomorrow. I would recommend transitioning the Omnicef as an outpatien t and giving him a total of 7 days of antibiotics between inpatient and outpatient. I have told him to follow up in the office in 2-3 weeks.
[2017-10-10] MEDS ORDERED: ISOVUE-370 76%-LOCM 1 ML ONE (14:23)
--- NOTE | 2017-10-10 14:30 | PRG ---
DATE OF SERVICE: 10/10/2017 SUBJECTIVE: The patient is awake and alert, in no distress. OBJECTIVE: VITAL SIGNS: Temperature 98.0, pulse 118, respiration 16, O2 sat 98%, blood pressure 137/63. HEENT: Unremarkable. NECK: No adenopathy or JVD. LUNGS: Slightly diminished breath sounds at both bases. CARDIOVASCULAR: S1, S2 regular. ABDOMEN: Soft, nontender. EXTREMITIES: No edema. CT of the abdomen, chest, and pelvis has not been officially read by Radiology. My first review of t he chest film shows a small left pleural effusion and even smaller right pleural effusion. There is some rounded atelectasis versus infiltrate in the left base. I do not see any discrete lung nodules and the only thing I have seen in the abdomen is an IVC filter, but again official reading is pending . ASSESSMENT: 1. Status post mechanical ventilation related hepatic encephalopathy. 2. Cryptogenic cirrhosis. PLAN: She is continuing treatment for the encephalopathy with lactulose. She is currently on ceftri axone. No further recommendations.
[2017-10-10] MEDS: cefTRIAXone\\ROCEPHIN 1 GM in Syringe 10 ML IVPB SCH (14:55)
--- NOTE | 2017-10-10 15:14 | CT ---
CT CHEST WITH CONTRAST CT ABDOMEN WITH CONTRAST CT PELVIS WITH CONTRAST: Date: 10/10/17 HISTORY: Involuntary weight loss. COMPARISON: CT abdomen and pelvis from 2010. FINDINGS: Moderate left effusion. Mild interstitial thickening of the lung bases, as well as in the periphery o f the upper lobes. There is some ground-glass opacity in the superior segment of the left lower lobe. Heart size is markedly enlarged. Biatrial enlargement. There is a nodular contour of the liver with a heterogeneous appearance. The stomach is distended wit h ingested material and contrast. There is marked dilatation of the superior mesenteric vein with extensive collaterals. There is aneur ysmal dilatation of the right gonadal vein collaterals. An IVC filter is in place just caudal to the renal veins. There is mild prominence of the right renal collecting system and renal pelvis. Mild ectasia of the u reters. There is a fat and fluid containing umbilical hernia. No dilated loops of large or small bowel. Spleen mildly enlarged. Pancreas mildly atrophic with some prominence of the main pancreatic duct to pancreatic head. Nonobstructing renal calculi bilaterally. Left femoral nail is in place. IMPRESSION: 1. 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 2. Cardiomegaly with mild edema. 3. Ground-glass opacity in the superior segment of the left lower lobe, likely atypical infection or edema. Follow-up recommended. 4. Collateral vessels throughout the anterior left chest wall suggesting elevated right heart pressu res. 5. Hepatic cirrhosis. 6. Cholelithiasis without evidence of cholecystitis. 7. Fat and fluid containing umbilical hernia without evidence of bowel obstruction. POS: [facility]
[2017-10-11 05:14] LABS: Anion Gap 9 mmol/L (10-20); BUN (Urea Nitrogen) 7 mg/dL (9.8-20.1); Calc. Creatinine Clearance 82 mL/min (70-130); Calcium 8.6 mg/dL (7.8-10.44); Carbon Dioxide 24 mmol/L (23-31); Chloride 106 mmol/L (98-107); Estimated GFR-MDRD Greater than 90; Glucose 104 mg/dL (83-110); Potassium 3.6 mmol/L (3.5-5.1); Sodium 135 mmol/L (136-145)
[2017-10-11] MEDS ORDERED: Spironolactone 100 MG TAB PO SCH (09:00)
[2017-10-11] MEDS ORDERED: Furosemide 40 MG TAB PO SCH (09:00)
[2017-10-11] MEDS: Digoxin 0.25 MG TAB PO SCH (09:17)
--- NOTE | 2017-10-11 10:12 | PDOC.PN ---
- Subjective Encounter Start Date: 10/11/17 Encounter Start Time: 10:10 Ms. Umana was seen today in follow-up. She does not have any complaints today. she appears to be at her baseline level of functioning. - Objective Resuscitation Status: Resuscitation Status FULL:Full Resuscitation MAR Reviewed: Yes Vital Signs & Weight: Vital Signs (12 hours) Temp Pulse Resp BP BP BP Pulse Ox 10/11/17 08:30 98.3 F 82 18 105/54 L 95 10/11/17 03:52 98.2 F 101 H 16 103/51 L 92 L 10/11/17 00:00 98.4 F 100 16 116/56 L 96 10/10/17 22:24 125 H 103/55 L Weight Admit Weight 138 lb 3.677 oz Weight 138 lb 3.2 oz Most Recent Monitor Data Heart Rate from ECG 122 NIBP 118/59 NIBP BP-Mean 78 Respiration from ECG 19 SpO2 93 I&O: 10/10/17 10/11/17 10/12/17 06:59 06:59 06:59 Intake Total 1020 1370 Output Total 1455 900 Balance -435 470 Result Diagrams: 10/10/17 10:26 10/11/17 04:43 Phys Exam - Physical Examination HEENT: PERRLA Respiratory: no wheezing, no rales, no rhonchi, clear to auscultation bilateral Cardiovascular: RRR, no significant murmur, no rub Gastrointestinal: soft, non-tender, positive bowel sounds Musculoskeletal: no edema Dx/Plan (1) Hepatic encephalopathy Code(s): K72.90 - HEPATIC FAILURE, UNSPECIFIED WITHOUT COMA Status: Acute (2) Cirrhosis, cryptogenic Code(s): K74.69 - OTHER CIRRHOSIS OF LIVER Status: Acute (3) UTI (urinary tract infection) Status: Acute (4) Atrial fibrillation Code(s): I48.91 - UNSPECIFIED ATRIAL FIBRILLATION Status: Acute - Plan * Hepatic Encephalopathy- resolved * Cirrhosis- stable * UTI- can transition to Omnicef * Stable for discharge home.
--- NOTE | 2017-10-11 10:47 | DIS ---
DATE OF ADMISSION: 10/07/2017 DATE OF DISCHARGE: 10/11/2017 PRIMARY CARE PHYSICIAN: Dr. Avitia. DISCHARGE DIAGNOSES: 1. Acute hepatic encephalopathy. 2. Cryptogenic cirrhosis. 3. Chronic permanent atrial fibrillation. 4. Urinary tract infection due to Escherichia coli. 5. Osteoporosis. DISCHARGE MEDICATIONS: Include Omnicef 300 mg twice a day for 3 days, Fosamax 70 mg weekly, digoxin 0.25 mg daily, diltiazem 30 mg twice a day, furosemide 40 mg daily, lactulose 30 g q.i.d., Toprol-XL 25 mg twice a day, omeprazole 40 mg daily, and spironolactone 100 mg a day. CODE STATUS: FULL CODE. ALLERGIES: IBUPROFEN. PROCEDURES DONE DURING ADMISSION: The patient had a CT scan of the abdomen, chest and pelvis showing an internal infrarenal IVC filter with marked dilatation of the superior mesenteric vein and collate ral gonadal vessels with aneurysmal dilatation, cardiomegaly with mild edema. There was some ground glass opacity in the superior segment of the left lower lobe, likely atypical infection or edema. Th ere was collateral vessels throughout the anterior chest wall suggesting elevated right heart pressur es, hepatic cirrhosis, cholelithiasis without evidence of cholecystitis and there was some fat and fl uid containing umbilical hernia and there was no evidence of bowel obstruction. The patient also had a CT scan of the brain showing stable atrophy and there was some chronic ischemic white matter pratt es, left parietal cortical encephalomalacic change. There was no mass, bleed or other acute process. HOSPITAL COURSE: Ms. Umana is a pleasant 72-year-old female who was found down at home by her son. EMS was called and she was brought to the hospital. She was intubated primarily for airway protecti on. It was found that her ammonia level was elevated at 136. She had never had an episode of hepati c encephalopathy, even though she has 8-year history of cryptogenic cirrhosis. It is felt that the u rinary tract infection that she was also found to have likely tipped her over into hepatic encephalop athy. She was placed on lactulose and her mental capacity improved. She was able to be extubated an d eventually discharged home. She will be discharged on Omnicef for continued treatment of the urina ry tract infection, which grew E. coli which was pansensitive. She will also be placed on lactulose to prevent future episodes of hepatic encephalopathy. She is also found to be in atrial fibrillation , but this appears to be a permanent finding. She is not on anticoagulation. It is thought to be be cause she is auto anticoagulated due to her liver failure and we will continue her previous medicatio ns which she had been taking for atrial fibrillation. I was in close contact with the patient's son over the telephone and he plans to bring her home with him and possibly consider placement if needed in the future.
[2017-10-11 11:48] VITALS: BP 120/52; TEMP 99
--- NOTE | 2017-10-11 13:37 | PRG ---
DATE OF SERVICE: 10/11/2017 SUBJECTIVE: Melanie is in no distress. OBJECTIVE: VITAL SIGNS: She is afebrile, heart rate is 90, respiratory rate is 18, oximetry is 95 on room air, blood pressure 120/52. LUNGS: Clear. HEART: Regular rhythm. ABDOMEN: Soft. IMPRESSION: 1. Hepatic encephalopathy, resolved. I have reminded her that it is imperative that she take the me dicine as prescribed by the environmental services associate. 2. Xkvjn-[id number]-Wnhrh with only upper airway manifestations. She has never had any pulmonary abnorma lities. 3. Abnormal chest CT with an increase in interstitial markings at her bases. I would suspect that t his may be aspiration mediated. Given that she presented unresponsive, simply repeat a chest radiogr aph in a couple of months. I wrote my recommendation down for her after seeing her in my clinic. Giulia cox has my number.
--- NOTE | 2017-10-11 13:45 | PRG ---
DATE OF SERVICE: 10/11/2017 Ms. Umana was seen a week ago by Dr. Brady with regarding hepatic encephalopathy. She came in with s su hepatic encephalopathy and ultimately was found to have urinary tract infection with E. coli wh ich was felt to be the etiology of this. Blood cultures have been negative. Presently, she states s he is going to go home with her son for a little while. PHYSICAL EXAMINATION: VITAL SIGNS: T-max 100.9, current 99, pulse 90, blood pressure 120/52. ABDOMEN: Soft, nontender. She is mildly icteric. INR is 1.5. Hemoglobin was 9.6 with an MCV of 80. Potassium 3.6, BUN and cr eatinine are 7 and 0.61. Ammonia was 42 yesterday, down from 136. ASSESSMENT: 1. Hepatic encephalopathy, markedly improved. 2. Escherichia coli, bladder infection, likely cause encephalopathy. 3. Weight loss. The patient had a CAT scan of abdomen and pelvis with regards to that. That was go ing to be done in the outpatient setting. She had lost about 20 pounds so a chest, abdomen, and pelv is was done, showed gallstones without cholecystitis, fat and fluid, umbilical hernia. Collateral ve ssels throughout the anterior left chest which also suggest right heart increased heart pressures, ca rdiomegaly, dilated infrarenal IVC. 4. Cryptogenic cirrhosis. RECOMMENDATIONS: Continue antibiotics and lactulose. I would be happy to see her back in office in 2 weeks. I recommend she hold off on diuretics until she is getting back on her regular diet. Recom mend she avoid sedatives, benzodiazepines and antihistamine over the counter medications as these can exacerbate encephalopathy.
[2017-10-11] MEDS: cefTRIAXone\\ROCEPHIN 1 GM in Syringe 10 ML IVPB SCH (15:14)
== END 2017-10-11 16:02 | disposition home or self-care (01) | DRG 441 ==
LOC: ERS 10:17 → CCU 12:45 → 2NO 10-09 19:10
PROVIDERS: ADMIT Internal Medicine; ATTEND Internal Medicine
PROC: 5A1935Z Respiratory Ventilation, Less than 24 Consecutive Hours (ICD-10-PCS; principal; 2017-10-07)
DX: K72.90 Hepatic failure, unspecified without coma (principal); J96.00 Acute respiratory failure, unspecified whether with hypoxia or hypercapnia; I78.0 Hereditary hemorrhagic telangiectasia; I48.2 Chronic atrial fibrillation; D69.6 Thrombocytopenia, unspecified; N39.0 Urinary tract infection, site not specified; B96.20 Unspecified Escherichia coli [E. coli] as the cause of diseases classified elsewhere; K74.69 Other cirrhosis of liver; I48.91 Unspecified atrial fibrillation; N18.9 Chronic kidney disease, unspecified; I25.10 Atherosclerotic heart disease of native coronary artery without angina pectoris; I34.0 Nonrheumatic mitral (valve) insufficiency; R91.8 Other nonspecific abnormal finding of lung field; R63.4 Abnormal weight loss; Z68.23 Body mass index [BMI] 23.0-23.9, adult; M81.0 Age-related osteoporosis without current pathological fracture; Z95.828 Presence of other vascular implants and grafts; Z87.891 Personal history of nicotine dependence; Z86.718 Personal history of other venous thrombosis and embolism; Z86.711 Personal history of pulmonary embolism; Z88.6 Allergy status to analgesic agent
CPT/HCPCS: 36415; 36416; 51702; 70450; 71045; 71260; 74177; 80048; 80053; 80162; 80306; 80307; 81003; 81015; 82140; 82550; 82553; 82805; 83605; 83690; 83735; 83880; 84443; 84484; 85025; 85610; 85730; 87040; 87077; 87086; 87186; 93005; 94002; 94003; 94760; 96374; 99292; A4216; C9113; G8978-GP-CJ; G8979-GP-CI; J0696

== ENCOUNTER 2017-11-19 09:02 | Outpatient (CLI) | payer MEDICARE ==
--- NOTE | 2017-11-19 10:32 | RAD ---
TWO VIEWS OF THE CHEST: COMPARISON: 10/07/17. HISTORY: Dyspnea. FINDINGS: Two views of the chest show an enlarged cardiomediastinal silhouette. Increased interstitial lung ma rkings are present. There is no evidence of consolidation, mass, or pleural effusion. IMPRESSION: Cardiomegaly without evidence of acute cardiopulmonary disease. POS: [facility]
== END 2017-11-19 09:03 | disposition home or self-care (01) ==
LOC: RAD 09:02
PROVIDERS: ATTEND Internal Medicine Critical Care Medicine
DX: I51.7 Cardiomegaly (principal)
CPT/HCPCS: 71046

== ENCOUNTER 2018-04-15 10:20 | Outpatient (CLI) | payer MEDICARE ==
--- NOTE | 2018-04-15 16:33 | ULT ---
HEPATIC ULTRASOUND: Comparison: 08-21-10 History: Cirrhosis. Technique: Multiplanar grayscale and color doppler images were obtained in a right upper quadrant abd ominal ultrasound. Spectral analysis of the doppler waveforms of the hepatic and splenic vasculature were performed. FINDINGS: The liver is heterogeneous in appearance consistent with patient's history of cirrhosis. No focal satish er lesions are seen. There are shadowing stones in the gallbladder. There is no gallbladder wall thic kening or pericholecystic fluid. The common bile duct is enlarged measuring 9 mm. Normal direction of flow was seen within the hepatic and splenic vasculature which also demonstrate n ormal waveforms. The spleen is normal in echogenicity without focal lesions and measures 13.5 cm in length. The pancre as is not visualized. The right kidney is normal in echogenicity without hydronephrosis or calculus a nd measures 12.4 cm in length. IMPRESSION: 1. Cholelithiasis. 2. Cirrhosis without focal liver lesions. POS: [facility]
== END 2018-04-15 10:21 | disposition home or self-care (01) ==
LOC: SCSULT 10:20
PROVIDERS: ATTEND Internal Medicine Gastroenterology
DX: K74.60 Unspecified cirrhosis of liver (principal); K72.90 Hepatic failure, unspecified without coma; K57.30 Diverticulosis of large intestine without perforation or abscess without bleeding; K22.70 Barrett's esophagus without dysplasia; D12.6 Benign neoplasm of colon, unspecified; D50.9 Iron deficiency anemia, unspecified; K80.20 Calculus of gallbladder without cholecystitis without obstruction
CPT/HCPCS: 76705

== ENCOUNTER 2019-02-28 14:18 | Outpatient (CLI) | payer MEDICARE ==
--- NOTE | 2019-02-28 15:49 | MMO ---
Bilateral MAMMO Bilat Screen [facility]. CLINICAL HISTORY: Patient is 73 years old and is seen for screening. The patient has no family history of breast cancer. The patient has no personal history of cancer. The patient has a history of left Excisional Biopsy in 2015 - benign. VIEWS: The views performed were: bilateral craniocaudal with tomosynthesis and bilateral mediolateral oblique with tomosynthesis. FILMS COMPARED: The present examination has been compared to prior imaging studies performed at [facility] on 03/24/2011, 11/30/2013, 08/21/2015 and 02/04/2018. MAMMOGRAM FINDINGS: There are scattered fibroglandular densities. Finding 1: There are new calcifications with grouped or clustered distribution seen in the middle region of the left breast at 12 o'clock. Finding 2: There is a stable area of skin thickening seen in the left breast. Finding 3: There are benign appearing calcifications seen in both breasts. IMPRESSION: FINDING 1: NEW CALCIFICATIONS IN THE LEFT BREAST REQUIRE ADDITIONAL EVALUATION. ADDITIONAL IMAGING. FINDING 2: STABLE AREA OF SKIN THICKENING IN THE LEFT BREAST IS BENIGN. FINDING 3: BENIGN APPEARING CALCIFICATIONS IN BOTH BREASTS ARE BENIGN. THE RESULTS OF THIS EXAM WERE SENT TO THE PATIENT. ACR BI-RADS Category 0 - Incomplete: Need additional imaging evaluation. [facility] will notify the patient of the need for additional imaging services. MAMMOGRAPHY NOTE: 1. A negative mammogram report should not delay a biopsy if a dominant of clinically suspicious mass is present. 2. Approximately 10% to 15% of breast cancers are not detected by mammography. 3. Adenosis and dense breasts may obscure an underlying neoplasm. Reported by: NUSRAT GANDARA MD Electonically Signed: [id number]
== END 2019-02-28 14:19 | disposition home or self-care (01) ==
LOC: BICMAMMO 14:18
PROVIDERS: ATTEND Family Medicine
DX: Z12.31 Encounter for screening mammogram for malignant neoplasm of breast (principal); N64.89 Other specified disorders of breast; Z91.89 Other specified personal risk factors, not elsewhere classified
CPT/HCPCS: 77063; 77067

== ENCOUNTER 2019-03-17 14:17 | Outpatient (CLI) | payer MEDICARE ==
--- NOTE | 2019-03-17 14:52 | MMO ---
Left Breast MAMMO Unilat Diag DDI LT+MILADY. CLINICAL HISTORY: Patient is 73 years old and is seen for diagnostic exam. The patient has no family history of breast cancer. The patient has no personal history of cancer. The patient has a history of left Excisional Biopsy in 2015 - benign. VIEWS: The views performed were: left craniocaudal spot compression magnification; left mediolateral spot compression magnification; and left mediolateral with tomosynthesis. FILMS COMPARED: The present examination has been compared to prior imaging studies performed at [facility] on 11/30/2013, 08/21/2015, 02/04/2018 and 02/28/2019. This study has been interpreted with the assistance of computer-aided detection. MAMMOGRAM FINDINGS: There are scattered fibroglandular densities. Finding 1: There are fine pleomorphic calcifications with grouped or clustered distribution seen in the left breast at 12 o'clock. Finding 2: There is an area of skin thickening seen in the left breast. This is primarily periareolar and new with respect to prior studies. IMPRESSION: FINDING 1: CALCIFICATIONS IN THE LEFT BREAST ARE SUSPICIOUS. A STEREOTACTIC BREAST BIOPSY IS RECOMMENDED. RESULTS AND RECOMMENDATIONS DISCUSSED WITH THE PATIENT AND QUESTIONS ANSWERED. FINDING 2: AREA OF SKIN THICKENING IN THE LEFT BREAST IS SUSPICIOUS. BIOPSY IS RECOMMENDED. DERMAL PUNCH BIOPSY IS RECOMMENDED. THE RESULTS OF THIS EXAM WERE SENT TO THE PATIENT. ACR BI-RADS Category 4 - Suspicious abnormality - biopsy should be considered MAMMOGRAPHY NOTE: 1. A negative mammogram report should not delay a biopsy if a dominant of clinically suspicious mass is present. 2. Approximately 10% to 15% of breast cancers are not detected by mammography. 3. Adenosis and dense breasts may obscure an underlying neoplasm. Reported by: MOHAN ELAINE MD Electonically Signed: [id number]
== END 2019-03-17 14:18 | disposition home or self-care (01) ==
LOC: BICMAMMO 14:17
PROVIDERS: ATTEND Family Medicine
DX: R31.0 Gross hematuria (principal); R92.1 Mammographic calcification found on diagnostic imaging of breast
CPT/HCPCS: 77065; G0279

== ENCOUNTER 2019-03-20 07:49 | Outpatient (CLI) | payer MEDICARE ==
[2019-03-20 08:49] LABS: Estimated GFR-MDRD - POC Greater than 90
--- NOTE | 2019-03-20 09:40 | CT ---
CT Abdomen Pelvis W WO con HISTORY: Gross hematuria x1 week. Right flank discomfort. History of kidney stones. COMPARISON: 10/10/2017 study. FINDINGS: There is a mild right pleural effusion with right lower lobe atelectasis seen. Chronic appe aring changes are seen within the left lung suggesting some air trapping. Heart size is enlarged. Liver has a nodular cirrhotic contour without any focal discrete mass. Spleen is slightly enlarged at 13.3 cm. Pancreas shows no evidence of mass some borderline prominence to the pancreatic duct. The gallbladder is mildly distended with gallstones present. Right and left adrenal glands are normal in appearance. There are punctate nonobstructing left renal calculi seen as well as some small right renal calculi and a slightly larger upper pole calculus measuring 5 mm. There is also mild dilatation of the right collecting system and proximal ureter to t he level of a approximately 5 mm calculus located at the L5 level. No calculi below this level. Tiny hypodensity within the right kidney is statistically most likely a cyst. There is no significant periaortic or mesenteric adenopathy. There is an IVC filter noted. CT of pelvis performed with and without contrast enhancement: Small fat-containing paraumbilical brendan ia is seen. No free fluid. No significant adenopathy or mass. Generalized edema change within the subcutaneous fat is incidentally seen. There are arthritic change s of the spine. IMPRESSION: 1. Mild right pleural effusion with right lower lobe atelectasis. 2. Nodular cirrhotic liver with mild splenomegaly. 3. Bilateral renal calculi with a 5 to 6 mm right ureteral calculus located through L5 level associat ed very mild dilatation to the right collecting system and ureter. 4. Gallstones.
[2019-03-20] MEDS ORDERED: ISOVUE-370 76%-LOCM 1 ML ONE (12:30)
== END 2019-03-20 07:50 | disposition home or self-care (01) ==
LOC: BICCT 07:49
PROVIDERS: ATTEND Family Medicine
DX: R31.9 Hematuria, unspecified (principal); J90 Pleural effusion, not elsewhere classified; J98.11 Atelectasis; K74.69 Other cirrhosis of liver; R16.1 Splenomegaly, not elsewhere classified; N20.2 Calculus of kidney with calculus of ureter; K80.80 Other cholelithiasis without obstruction
CPT/HCPCS: 74178; 82565; Q9966

== ENCOUNTER → 2019-03-22 | Day surgery (SDC) | payer MEDICARE ==
--- NOTE | 2019-03-22 09:46 | MMO ---
SURGICAL SPECIMEN RADIOGRAPH: CLINICAL HISTORY: Status post stereotactic biopsy of calcifications of upper outer left breast. FINDINGS: Radiographed specimens reveal calcifications of interest. IMPRESSION: Calcifications of interest within the excised specimens. Transcribed Date/Time: 03/22/2019 9:57 AM
--- NOTE | 2019-03-22 09:46 | MMO ---
POST PROCEDURAL LEFT MAMMOGRAM: CLINICAL HISTORY: Status post stereotactic biopsy. Calcifications of left upper outer breast. FINDINGS: Clip deployment of the upper outer left breast, middle depth, status post stereotactic biopsy. IMPRESSION: Post procedural left mammogram revealing clip deployment of the upper outer left breast. Transcribed Date/Time: 03/22/2019 9:59 AM
--- NOTE | 2019-03-22 09:47 | MMO ---
Stereotactic Left breast biopsy INDICATION: Left breast calcifications, upper outer quadrant. PROCEDURE: Informed consent was obtained and the patient was escorted to the procedural suite, placed in a prone position. Breast was placed into compression. Calcifications of interest were localized utilizing stereotactic imaging. Standard sterile prepping and draping and topical anesthesia with buffered 1% lidocaine was achieved, followed by a small skin incision. A 10-gauge vacuum-assisted stereotactic needle was then advanced to the leading edge of the calcifica tions, confirmed with mammographic imaging. Needle was then deployed. 6 core specimens were then acquired from the site of interest. The specimens were radiographed which did reveal calcifications of interest. Needle was removed. A biopsy marking clip was then advanced to the site of biopsy and a marking clip was deployed. There were no procedural complications. Patient tolerated the procedure well. Patient was transferred to mammography to undergo postprocedural clip placement views. IMPRESSION: Technically successful stereotactic biopsy of left breast, yielding calcifications of int erest. Pathology results are pending. The patient will be notified of the results when they are received.
== END ==
LOC: MAMMO 06:45
PROVIDERS: ATTEND Family Medicine
PROC: 0HBU3ZX Excision of Left Breast, Percutaneous Approach, Diagnostic (ICD-10-PCS; principal; 2019-03-22)
PROC: 0H9U3ZX Drainage of Left Breast, Percutaneous Approach, Diagnostic (ICD-10-PCS; 2019-03-22)
DX: D05.12 Intraductal carcinoma in situ of left breast (principal); Z17.0 Estrogen receptor positive status [ER+]; Z79.1 Long term (current) use of non-steroidal anti-inflammatories (NSAID)
CPT/HCPCS: 19081; 76098; 88305; 88341; 88342; 88360

== ENCOUNTER 2019-04-18 12:33 | Inpatient (IN) | payer MEDICARE ==
[2019-04-18 14:40] LABS: #Lymphocytes 0.5 thou/uL (1.20-3.40); #Monocytes 0.8 thou/uL (0.11-0.59); #Neutrophils 5.7 thou/uL (1.40-6.50); %Basophils 0.3 % (0.0-1.0); %Eosinophils 0.4 % (0.0-10.0); %Lymphocytes 7.4 % (21.0-51.0); %Monocytes 10.8 % (0.0-10.0); Hemoglobin 12.8 g/dL (12.0-16.0); Mean Corpuscular HGB CONC 33.3 g/dL (32.0-36.0); Mean Corpuscular Hemoglobin 32.2 pg (27.0-31.0); Mean Corpuscular Volume 96.5 fL (78.0-98.0); Mean Platelet Volume 8.6 fL (7.4-10.4); Platelet Count 107 thou/uL (130-400); RBC Distribution Width 14.9 % (11.5-14.5); Red Blood Cell (RBC) Count 3.98 mill/uL (4.20-5.40)
[2019-04-18 15:02] LABS: ALT (SGPT) 18 U/L (8-55); AST (SGOT) 34 U/L (5-34); Albumin 3.6 g/dL (3.4-4.8); Alkaline Phosphatase 128 U/L (40-110); Anion Gap 14 mmol/L (10-20); BUN (Urea Nitrogen) 13 mg/dL (9.8-20.1); Bilirubin, Total 3.6 mg/dL (0.2-1.2); Calc. Creatinine Clearance 0 mL/min (70-130); Carbon Dioxide 27 mmol/L (23-31); Chloride 102 mmol/L (98-107); Estimated GFR-MDRD 72; Globulin 3.4 g/dL (2.4-3.5); Glucose 125 mg/dL (83-110); Potassium 3.5 mmol/L (3.5-5.1); Sodium 139 mmol/L (136-145)
--- NOTE | 2019-04-18 15:26 | RAD ---
PORTABLE CHEST ONE VIEW: 04/18/2019 2:45 p.m. HISTORY: Bilateral lower extremity edema and shortness of breath. COMPARISON: 10/07/2017 FINDINGS: The heart is enlarged. The is pulmonary vascular congestion with right basilar infiltrate and accompa nying small effusions. No pneumothoraces are seen. POS: TPC
[2019-04-18 17:09] LABS: Troponin I 0.031 ng/mL (< 0.028)
[2019-04-18 17:40] LABS: Bilirubin Negative (Negative); Blood, Urine Large (Negative); Glucose, Urine (Dipstick) Negative (Negative); Leukocyte Large (Negative); Nitrite Positive (Negative); Protein, Urine (Dipstick) 30 mg/dL (Neg-Trace)
[2019-04-18 17:41] LABS: Clarity Hazy (Clear)
[2019-04-18 17:43] LABS: Bacteria/HPF 4+ HPF (None Seen); RBC/HPF 21-50 HPF (0-3); Squamous Epithelial None Seen HPF (0-3); WBC/HPF Greater than 50 HPF (0-3)
[2019-04-18 18:30] LABS: Lactic Acid 2.7 mmol/L (0.5-2.2)
[2019-04-18] MEDS ORDERED: Ondansetron PF 4 MG/2 ML Vial IVP PRN ×2 (20:43→22:55)
[2019-04-18] MEDS ORDERED: Acetaminophen 325 MG TAB PO PRN ×2 (20:43→22:55)
[2019-04-18] MEDS ORDERED: Ondansetron ODT 4 MG TAB SL PRN (20:43)
[2019-04-18] MEDS ORDERED: HYDROcodone/Acetaminophen 5/325 mg Tablet PO PRN ×2 (20:43)
[2019-04-18] MEDS ORDERED: Melatonin 3 MG TAB PO PRN (22:50)
[2019-04-18] MEDS ORDERED: Ondansetron ODT 4 MG TAB PO PRN (22:55)
[2019-04-18] MEDS ORDERED: Acetaminophen 650 MG Suppository PR PRN (22:55)
[2019-04-18] MEDS ORDERED: Furosemide 20 MG/2 ML VIAL SLOW IVP SCH (23:45)
[2019-04-18] MEDS: Melatonin 3 MG TAB PO SCH (23:47)
[2019-04-19] MEDS: cefTRIAXone\\ROCEPHIN 2 GM in Sodium Chloride 0.9% 100 ML IVPB SCH ×2 (00:03→23:58)
[2019-04-19 00:17] LABS: CKMB 0.9 ng/mL (0-6.6)
--- NOTE | 2019-04-19 00:54 | HP ---
TIME OF ASSESSMENT: 2199. PRIMARY CARE PHYSICIAN: Jac Goodwin MD CHIEF COMPLAINT: Swollen feet and decreased urinary output. HISTORY OF PRESENT ILLNESS: Ms. Umana is a pleasant 73-year-old woman, who states she came in today due to notable swelling in her feet and noticing that she has not been urinating as frequently as usual. She had some mild suprapubic discomfort and was afraid this was due to a kidney stone. She denies having any chest pain or shortness of breath. States she does have COPD and does not use oxygen at home, but does use nebulizer treatments regularly. She has a chronic cough, which has not changed. It is nonproductive and she denies any hemoptysis. Denies having any fevers, chills, or sweats. Denies headaches or dizziness. Reports having some issues with constipation and states her last bowel movement was yesterday, and said she had very small hard stools. She has been eating without difficulty and has also been passing some gas today. Denies any abdominal distention. In the emergency department, she underwent laboratory studies that were notable for a white count of 7, hemoglobin of 12.8, hematocrit 38.4, platelets 107, neutrophils 81. Sodium 139, potassium 3.5, BUN 13, creatinine 0.78, GFR 72. Lactic acid 2.4. Calcium 9, total bilirubin 3.6, AST 34, ALT 18, alkaline phosphatase 128. Initial troponin was negative. However, subsequent troponins at 4 p.m. were indeterminate at 0.031 and 8 p.m. at 0.040. BNP was 244.6, albumin 3.6. She also underwent urinalysis, which was notable for 30 of protein, large blood, positive nitrites, large leukocyte esterase, 21 to 50 red blood cells, greater than 50 white blood cells, 4+ bacteria. A chest x-ray was done demonstrating an enlarged heart with pulmonary vascular congestion and a right basal infiltrate with accompanying small effusions. No treatment was given in the emergency department. ALLERGIES: IBUPROFEN. CURRENT MEDICATIONS: 1. Albuterol. 2. Cholecalciferol. 3. Digoxin. 4. Diltiazem. 5. Furosemide. 6. Lactulose. 7. Melatonin. 8. Metoprolol succinate. 9. Omeprazole. 10. Potassium chloride. 11. vitamin. 12. Xifaxan. PAST MEDICAL HISTORY: 1. COPD. 2. Atrial fibrillation. 3. GERD. 4. History of left breast cancer. 5. CHF. PAST SURGICAL HISTORY: 1. Tonsillectomy. 2. Right foot surgery. 3. Left hip surgery. 4. Ovarian surgery, but denies removal of the ovaries. SOCIAL HISTORY: The patient lives alone and is fully independent. Denies requiring any assistive devices for mobility. She is a long-term smoker and states she has cut down to 2 to 3 cigarettes a day. Denies any alcohol consumption or illicit drug use. PHYSICAL EXAMINATION: GENERAL: The patient was found resting comfortably in bed. She is in no acute distress. VITAL SIGNS: Temperature 98.4, pulse 86, respirations 20, O2 saturation 97% on room air, blood pressure 129/58. HEENT: Normocephalic and atraumatic. Pupils are equal, round, and reactive to light. Sclerae icterus. Oropharynx is clear. NECK: Supple without lymphadenopathy. LUNGS: Notable for mild expiratory wheezing throughout all lung huang. ABDOMEN: Soft, nondistended with some mild suprapubic discomfort on palpation. No guarding or rigidity. EXTREMITIES: Notable for +2 pitting edema involving the feet to below the knee bilaterally. Pedal pulses equal and strong bilaterally. SKIN: Warm and dry. NEUROLOGIC: Alert and oriented x3. No neuro deficits. INVESTIGATIONS: As mentioned above in HPI. IMPRESSION AND PLAN: Ms. Umana is a 73-year-old woman, has been referred for management of the following; 1. Congestive heart failure exacerbation. BNP elevated at 244.6 and she has lower extremity edema. Denies any shortness of breath. Chest x-ray notable for pleural effusions. She apparently takes Lasix as needed at home. We will give 20 mg of Lasix IV and continue with 20 mg p.o. daily after. We will monitor renal function. Echo has been ordered by the ED. 2. Urinary tract infection. Urinalysis positive and urine culture have been requested. We will initiate IV antibiotics. We will obtain a bladder scan to rule out urinary retention. 3. Constipation. We will start her on MiraLAX. The patient does suffer from chronic constipation. We will hold lactulose as we do not want to drive her out given the fact we are diuresing. 4. Chronic obstructive pulmonary disease. We will continue DuoNebs. The patient states she is at her current baseline. Saturations normal. Continue to monitor. 5. Atrial fibrillation. Resume home medications once verified. 6. Hypertension. Resume home medications once verified. 7. Gastrointestinal prophylaxis with omeprazole, which she takes at home. 8. Deep venous thrombosis prophylaxis. The patient is ambulatory. OMEGA hose stockings ordered. 9. Code status full. Her surrogate decision maker is her son, Jimmy Bullock. The patient's case was discussed with attending, who agrees with plan of care as described above. Job ID: [id number]
[2019-04-19 06:39] LABS: ALT (SGPT) 16 U/L (8-55); AST (SGOT) 29 U/L (5-34); Alkaline Phosphatase 116 U/L (40-110); Bilirubin, Direct 1.5 mg/dL (0.1-0.3); Bilirubin, Total 2.6 mg/dL (0.2-1.2); Protein, Total 6.1 g/dL (6.0-8.3)
[2019-04-19 06:41] LABS: #Eosinphils 0.1 thou/uL (0.0-0.7); #Lymphocytes 0.6 thou/uL (1.20-3.40); #Monocytes 0.8 thou/uL (0.11-0.59); #Neutrophils 4.8 thou/uL (1.40-6.50); %Basophils 0.3 % (0.0-1.0); %Eosinophils 1.5 % (0.0-10.0); %Lymphocytes 9.5 % (21.0-51.0); %Monocytes 12.2 % (0.0-10.0); %Neutrophils 76.4 % (42.0-75.0); ALT (SGPT) 16 U/L (8-55); AST (SGOT) 32 U/L (5-34); Alkaline Phosphatase 116 U/L (40-110); Anion Gap 13 mmol/L (10-20); BUN (Urea Nitrogen) 14 mg/dL (9.8-20.1); Bilirubin, Total 2.7 mg/dL (0.2-1.2); Calc. Creatinine Clearance 77 mL/min (70-130); Calcium 8.3 mg/dL (7.8-10.44); Carbon Dioxide 28 mmol/L (23-31); Chloride 103 mmol/L (98-107); Estimated GFR-MDRD 80; Glucose 93 mg/dL (83-110); Hemoglobin 11.2 g/dL (12.0-16.0); Magnesium 1.5 mg/dL (1.6-2.6); Mean Corpuscular HGB CONC 33.2 g/dL (32.0-36.0); Mean Corpuscular Volume 96.4 fL (78.0-98.0); Mean Platelet Volume 8.8 fL (7.4-10.4); Platelet Count 89 thou/uL (130-400); Potassium 3.6 mmol/L (3.5-5.1); RBC Distribution Width 14.4 % (11.5-14.5); Red Blood Cell (RBC) Count 3.49 mill/uL (4.20-5.40); Sodium 140 mmol/L (136-145); White Blood Cell (WBC) Count 6.3 thou/uL (4.8-10.8)
[2019-04-19] MEDS: Furosemide 20 MG TAB PO SCH (08:24)
[2019-04-19] MEDS: Digoxin 0.25 MG TAB PO SCH (08:24)
[2019-04-19] MEDS: Polyethylene Glycol 3350 17 GM Packet PO SCH (08:24)
[2019-04-19] MEDS ORDERED: Famotidine/PF 20 mg/2ml Vial SLOW IVP SCH (09:00)
[2019-04-19] MEDS ORDERED: Magnesium Oxide 400 MG TAB PO SCH (11:15)
[2019-04-19] MEDS ORDERED: Furosemide 40 MG/4 ML VIAL SLOW IVP SCH (11:30)
--- NOTE | 2019-04-19 11:59 | PRG ---
DATE OF SERVICE: 04/19/2019 SUBJECTIVE: The patient reports she continues to feel short of breath. She is still swollen. 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 She says that she has never been on blood thinners before, she does report that she has a history of bleeding, requiring multiple transfusions and likely has coagulopathy from cirrhosis, which itself is either related from "too many transfusions" or her history of alcohol abuse. She is unaware of any other cardiac issues. There is a consult note from Dr. Macias from 2018 indicating that the patient did have a prior cardiomyopathy with mitral regurgitation noted on a transesophageal echo with no EF specifically reported. I do not see a report for that in the [facility] system presently. OBJECTIVE: VITAL SIGNS: Temperature is 97.5, pulse 84, respirations 18, O2 saturations 93% on room air. She was 92% on 2 L at 0400. Blood pressure is 132/60. GENERAL APPEARANCE: Age-appropriate female, in no distress. Awake, alert, oriented, pleasant, and cooperative. HEART: Irregular with 2/6 murmur at the left upper sternal border. LUNGS: Diminished, otherwise clear. ABDOMEN: Soft, nontender, and nondistended. Positive bowel sounds. EXTREMITIES: Have 2+ pitting edema to above the knee. LABORATORY DATA: White count 6.3, hemoglobin 11.2, and platelets 89. Chemistries normal with the exception of magnesium of 1.5. Total bilirubin is 2.6, direct bilirubin is 1.5, alkaline phosphatase 116. Troponin peaked at 0.042. Cultures, nothing yet. IMPRESSION AND PLAN: 1. The patient appears to have volume overload, most consistent with congestive heart failure exacerbation. However, she does apparently have the underlying cirrhosis, which is likely contributory as well. She is taking Lasix at home, but says that when she takes that, she is only peeing about 4 times and only a couple of tablespoons worth of urine. She is also on diltiazem likely for atrial fibrillation, rate control, but may be contributing to some peripheral edema as well. She apparently had a stress echo done at Dr. Zamarripa office on 03/31/2018, trying to obtain the results of that. She has had a repeat echo done this morning. We will follow up on that. We will go ahead and give her another dose of IV Lasix now. 2. Atrial fibrillation. Continue with metoprolol, diltiazem, and digoxin. We will not pursue anticoagulation given her history of coagulopathy and thrombocytopenia. She is rate controlled currently. 3. Cirrhosis, likely secondary to prior alcohol abuse. She has had prior admissions for hepatic encephalopathy. We will continue with the lactulose and Xifaxan. 4. Mild hypoxic respiratory failure, acute, likely due to some volume overload. We will see how she responds to additional Lasix. Her sats are tolerable on room air, but she is still subjectively short of breath with that. 5. Urinary tract infection, on Rocephin. Continue to follow cultures. 6. Hypomagnesemia. We will give p.o. magnesium as she has chronic constipation issues. 7. Chronic constipation. Continue with the lactulose, which will likely need to increase significantly. She is on a low dose and still having some issues with her bowels. 8. History of deep venous thrombosis with PE based on prior records. Again, we will check the patient's coags, but she has this history of coagulopathy, which would preclude the use of significant anticoagulation. 9. [id number] myocardial infarction, type 2 secondary to congestive heart failure. Job ID: [id number]
[2019-04-19 15:29] LABS: INR-International Normal Ratio 1.4; PTT 37.6 SEC (22.9-36.1); Prothrombin Time 17.5 SEC (12.0-14.7)
[2019-04-19] MEDS ORDERED: HYDROcodone/Acetaminophen 5/325 mg Tablet PO PRN (15:47)
[2019-04-19] MEDS: Magnesium Oxide 400 MG TAB PO SCH (20:03)
[2019-04-19] MEDS: Melatonin 3 MG TAB PO SCH (23:06)
[2019-04-20 06:15] LABS: ALT (SGPT) 16 U/L (8-55); AST (SGOT) 34 U/L (5-34); Albumin 2.9 g/dL (3.4-4.8); Alkaline Phosphatase 112 U/L (40-110); Anion Gap 13 mmol/L (10-20); BUN (Urea Nitrogen) 14 mg/dL (9.8-20.1); Bilirubin, Total 2.6 mg/dL (0.2-1.2); Calc. Creatinine Clearance 79 mL/min (70-130); Calcium 8.6 mg/dL (7.8-10.44); Carbon Dioxide 26 mmol/L (23-31); Chloride 100 mmol/L (98-107); Estimated GFR-MDRD 82; Globulin 3.4 g/dL (2.4-3.5); Glucose 86 mg/dL (83-110); Magnesium 1.7 mg/dL (1.6-2.6); Potassium 4.1 mmol/L (3.5-5.1); Protein, Total 6.3 g/dL (6.0-8.3); Sodium 135 mmol/L (136-145)
[2019-04-20] MEDS: Polyethylene Glycol 3350 17 GM Packet PO SCH (08:36)
[2019-04-20] MEDS: Magnesium Oxide 400 MG TAB PO SCH ×2 (08:37→21:28)
[2019-04-20] MEDS: Digoxin 0.25 MG TAB PO SCH (08:37)
[2019-04-20] MEDS: Furosemide 20 MG TAB PO SCH (08:39)
--- NOTE | 2019-04-20 17:59 | PDOC.HOSPP ---
- Subjective Subjective: Still says she feels miserable. Did have a BM, but still feels like her abdomen is very full. - Objective Vital Signs & Weight: Vital Signs (12 hours) Temp Pulse Resp BP Pulse Ox 04/20/19 16:35 98.0 F 73 20 133/60 95 04/20/19 13:42 80 16 04/20/19 11:31 98.4 F 72 24 H 136/62 94 L 04/20/19 08:08 98.0 F 85 24 H 140/64 93 L 04/20/19 06:46 80 16 Weight Admit Weight 154 lb Weight 157 lb 1.6 oz I&O: 04/19/19 04/20/19 04/21/19 06:59 06:59 06:59 Intake Total 822 1440 Output Total 400 1050 Balance 422 390 Result Diagrams: 04/19/19 05:56 04/20/19 05:07 Additional Labs: Accuchecks 04/20/19 10:44 POC Glucose 178 H Hospitalist ROS - Medication Medications: Active Medications Generic Name Dose Route Start Last Admin Trade Name Freq PRN Reason Stop Dose Admin Hydrocodone Bitart/Acetaminophen 1 tab 04/19/19 15:47 04/19/19 15:53 [place] 5/325 PO 1 tab Q6H PRN Administration Moderate to Severe Pain (4-10) Albuterol/Ipratropium 3 ml 04/19/19 01:00 04/20/19 13:42 Duoneb NEB 3 ml [id number] JASON Administration Cholecalciferol 1,000 units 04/19/19 09:00 04/20/19 08:36 Vitamin D3 PO 1,000 units DAILY JASON Administration Digoxin 0.25 mg 04/19/19 09:00 04/20/19 08:37 Lanoxin PO 0.25 mg DAILY JASON Administration Diltiazem HCl 120 mg 04/19/19 09:00 04/20/19 08:37 Cardizem Cd PO 120 mg DAILY JASON Administration Ceftriaxone Sodium 2 gm/ 100 mls @ 200 mls/hr 04/18/19 23:00 04/19/19 23:58 Sodium Chloride IVPB 100 mls 2300 JASON Administration Magnesium Oxide 400 mg 04/19/19 21:00 04/20/19 08:37 Magnesium Oxide PO 400 mg BID JASON Administration Metoprolol Succinate 50 mg 04/19/19 09:00 04/20/19 08:36 Toprol Xl PO 50 mg DAILY JASON Administration Pantoprazole Sodium 40 mg 04/19/19 09:00 04/20/19 08:36 Protonix PO 40 mg DAILY JASON Administration Polyethylene Glycol 17 gm 04/19/19 09:00 04/20/19 08:36 Miralax PO 17 gm DAILY JASON Administration - Exam General Appearance: NAD, awake alert General - other findings: Sats still a little low, requiring oxygen. Neck: supple, symmetric, no JVD, no thyromegaly, no lymphadenopathy, no carotid bruit Heart: no murmur, no gallops, irregular Respiratory: rales Gastrointestinal: soft, non-tender, non-distended, normal bowel sounds, no palpable masses, no hepatomegaly, no splenomegaly, no bruit Musculoskeletal: normal tone, normal strength, no muscle wasting Psychiatric: normal affect, normal behavior, A&O x 3 Hosp A/P (1) Constipation Code(s): K59.00 - CONSTIPATION, UNSPECIFIED Status: Acute (2) CHF (congestive heart failure) Code(s): I50.9 - HEART FAILURE, UNSPECIFIED Status: Acute (3) Alcoholic cirrhosis of liver Code(s): K70.30 - ALCOHOLIC CIRRHOSIS OF LIVER WITHOUT ASCITES Status: Acute (4) Atrial fibrillation Code(s): I48.91 - UNSPECIFIED ATRIAL FIBRILLATION Status: Acute (5) UTI (urinary tract infection) Status: Acute (6) Acute respiratory failure with hypoxia Code(s): J96.01 - ACUTE RESPIRATORY FAILURE WITH HYPOXIA Status: Acute (7) Myocardial infarct Code(s): I21.9 - ACUTE MYOCARDIAL INFARCTION, UNSPECIFIED Status: Acute Qualifiers: Myocardial infarction type: type 2 Qualified Code(s): I21.A1 - Myocardial infarction type 2 - Plan Will make inpatient. Increase lactulose to aggressively address the constipation and abdominal fullness. Continue Rocephin. Growing GNR in urine cx. Increase the Lasix.
[2019-04-20] MEDS: cefTRIAXone\\ROCEPHIN 2 GM in Sodium Chloride 0.9% 100 ML IVPB SCH (23:17)
[2019-04-21] MEDS: Furosemide 40 MG/4 ML VIAL SLOW IVP SCH ×2 (06:07→14:17)
[2019-04-21] MEDS: Digoxin 0.25 MG TAB PO SCH (08:29)
[2019-04-21] MEDS: Magnesium Oxide 400 MG TAB PO SCH ×2 (08:30→20:21)
[2019-04-21] MEDS: Polyethylene Glycol 3350 17 GM Packet PO SCH (08:30)
[2019-04-21] MEDS ORDERED: Azithromycin 500 MG in Sodium Chloride 0.9% 250 ML 250 ML IVPB SCH (11:45)
--- NOTE | 2019-04-21 11:45 | PDOC.HOSPP ---
- Subjective Subjective: Denies abd pain, but says she is very concerned about the kidney stone she has. She is worried she will have pain there again. Breathing is not as good in general. She is having BM's. Also worried about her need to get B mastectomies because of breast cancer. - Objective Vital Signs & Weight: Vital Signs (12 hours) Temp Pulse Resp BP BP Pulse Ox 04/21/19 08:29 72 04/21/19 07:34 98.1 F 72 24 H 133/79 96 04/21/19 07:23 71 12 04/21/19 04:28 96 04/21/19 02:55 98.4 F 69 23 H 137/61 95 Weight Admit Weight 154 lb Weight 158 lb 8 oz I&O: 04/20/19 04/21/19 04/22/19 06:59 06:59 06:59 Intake Total 1440 1140 Output Total 1050 1600 Balance 390 -460 Result Diagrams: 04/19/19 05:56 04/20/19 05:07 Hospitalist ROS - Medication Medications: Active Medications Generic Name Dose Route Start Last Admin Trade Name Freq PRN Reason Stop Dose Admin Hydrocodone Bitart/Acetaminophen 1 tab 04/19/19 15:47 04/19/19 15:53 [place] 5/325 PO 1 tab Q6H PRN Administration Moderate to Severe Pain (4-10) Albuterol/Ipratropium 3 ml 04/19/19 01:00 04/21/19 07:23 Duoneb NEB 3 ml [id number] JASON Administration Cholecalciferol 1,000 units 04/19/19 09:00 04/21/19 08:29 Vitamin D3 PO 1,000 units DAILY JASON Administration Digoxin 0.25 mg 04/19/19 09:00 04/21/19 08:29 Lanoxin PO 0.25 mg DAILY JASON Administration Diltiazem HCl 120 mg 04/19/19 09:00 04/21/19 08:29 Cardizem Cd PO 120 mg DAILY JASON Administration Furosemide 40 mg 04/21/19 06:00 04/21/19 06:07 Lasix SLOW IVP 40 mg 0600,1400 JASON Administration Ceftriaxone Sodium 2 gm/ 100 mls @ 200 mls/hr 04/18/19 23:00 04/20/19 23:17 Sodium Chloride IVPB 100 mls 2300 JASON Administration Magnesium Oxide 400 mg 04/19/19 21:00 04/21/19 08:30 Magnesium Oxide PO 400 mg BID JASON Administration Melatonin 6 mg 04/18/19 22:50 04/20/19 21:29 Melatonin PO 6 mg HSPRN PRN Administration Insomnia Metoprolol Succinate 50 mg 04/19/19 09:00 04/21/19 08:29 Toprol Xl PO 50 mg DAILY JASON Administration Pantoprazole Sodium 40 mg 04/19/19 09:00 04/21/19 08:30 Protonix PO 40 mg DAILY JASON Administration Polyethylene Glycol 17 gm 04/19/19 09:00 04/21/19 08:30 Miralax PO 17 gm DAILY JASON Administration Sodium Chloride 10 ml 04/18/19 22:55 04/20/19 21:29 Flush - Normal Saline IVF 10 ml Q12HR PRN Administration Saline Flush Sodium Chloride 10 ml 04/18/19 22:55 04/21/19 06:07 Flush - Normal Saline IVF 10 ml PRN PRN Administration Saline Flush - Exam General Appearance: NAD, awake alert Neck: supple, symmetric, no JVD, no thyromegaly, no lymphadenopathy, no carotid bruit Heart: RRR, no murmur, no gallops, no rubs, normal peripheral pulses Respiratory: no wheezes, no rales, no ronchi, normal chest expansion, no tachypnea, normal percussion, rales, wheezes (Diffuse) Gastrointestinal: soft, non-tender, non-distended, normal bowel sounds, no palpable masses, no hepatomegaly, no splenomegaly, no bruit Extremities: no cyanosis, no clubbing, no edema Musculoskeletal: normal tone Psychiatric: normal affect, normal behavior, A&O x 3 Hosp A/P (1) CHF (congestive heart failure) Code(s): I50.9 - HEART FAILURE, UNSPECIFIED Status: Acute (2) Constipation Code(s): K59.00 - CONSTIPATION, UNSPECIFIED Status: Acute (3) Alcoholic cirrhosis of liver Code(s): K70.30 - ALCOHOLIC CIRRHOSIS OF LIVER WITHOUT ASCITES Status: Acute (4) Atrial fibrillation Code(s): I48.91 - UNSPECIFIED ATRIAL FIBRILLATION Status: Acute (5) UTI (urinary tract infection) Status: Acute (6) Acute respiratory failure with hypoxia Code(s): J96.01 - ACUTE RESPIRATORY FAILURE WITH HYPOXIA Status: Acute (7) Myocardial infarct Code(s): I21.9 - ACUTE MYOCARDIAL INFARCTION, UNSPECIFIED Status: Acute Qualifiers: Myocardial infarction type: type 2 Qualified Code(s): I21.A1 - Myocardial infarction type 2 (8) Ureterolithiasis Code(s): N20.1 - CALCULUS OF URETER Status: Acute (9) Infiltrate of lung present on chest x-ray Code(s): R91.8 - OTHER NONSPECIFIC ABNORMAL FINDING OF LUNG FIELD Status: Acute (10) COPD exacerbation Code(s): J44.1 - CHRONIC OBSTRUCTIVE PULMONARY DISEASE W (ACUTE) EXACERBATION Status: Acute - Plan Increased lactulose helped. Breathing is worse. Increased wheezing and rales. Add steroids. Add Azithromycin. She has been on Rocephin since admission. Repeat CBC, CXR. Had infilitrate on initial CXR, but had edema too. Had CT on 03/20 with RLL atelectasis and effusion. May be all that we see on the CXR. Add PRN nebs. Continue Rocephin for E coli UTI. Review of the CT shows a small right ureteral stone with very mild hydro. US renal today given that she did have the stone and the E coli. 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 Not a candidate for any intervention until she is more stable. Continue Diuresis. Check labs.
[2019-04-21] MEDS: methylPREDNISolone Sod Succ 40 MG VIAL IVP SCH ×3 (12:17→23:31)
[2019-04-21 12:25] LABS: #Eosinphils 0.1 thou/uL (0.0-0.7); #Lymphocytes 0.4 thou/uL (1.20-3.40); #Neutrophils 6.2 thou/uL (1.40-6.50); %Basophils 0.4 % (0.0-1.0); %Eosinophils 1.2 % (0.0-10.0); %Lymphocytes 5.6 % (21.0-51.0); %Monocytes 12.5 % (0.0-10.0); %Neutrophils 80.3 % (42.0-75.0); Hemoglobin 11.4 g/dL (12.0-16.0); Mean Corpuscular HGB CONC 31.6 g/dL (32.0-36.0); Mean Corpuscular Hemoglobin 31.7 pg (27.0-31.0); Mean Platelet Volume 8.3 fL (7.4-10.4); Platelet Count 96 thou/uL (130-400); RBC Distribution Width 14.2 % (11.5-14.5); White Blood Cell (WBC) Count 7.8 thou/uL (4.8-10.8)
[2019-04-21 12:44] LABS: Anion Gap 11 mmol/L (10-20); BUN (Urea Nitrogen) 15 mg/dL (9.8-20.1); Calc. Creatinine Clearance 82 mL/min (70-130); Calcium 8.9 mg/dL (7.8-10.44); Carbon Dioxide 31 mmol/L (23-31); Chloride 99 mmol/L (98-107); Estimated GFR-MDRD 85; Glucose 136 mg/dL (83-110); Potassium 4.1 mmol/L (3.5-5.1); Sodium 137 mmol/L (136-145)
--- NOTE | 2019-04-21 13:30 | ULT ---
US Renal Bilateral STANDARD History: Ureteral stone with hydronephrosis Comparison: CT examination March 20, 2019 Findings: Real-time grayscale and color evaluation of the kidneys and urinary bladder was performed. Right kidney measures 15.7 x 7.2 x 9 cm and the left kidney measures 11.6 x 4.2 x 4.3 similar. The prevoid urinary bladder volume is 27 mL. Severe right hydronephrosis. Urinary bladder ureteral jets are not appreciated. Interpolar left renal calculus measures 5 mm., Impression: Severe right-sided obstructive uropathy. CT recommended to evaluate for level of obstruct ion.
--- NOTE | 2019-04-21 13:36 | RAD ---
XR Chest Pa Lat STANDARD History: Right lower lobe infiltrate Comparison: Radiograph 04/18/2019 Findings: Right lower lobe opacity is similar. There is also a moderate right effusion with compressi ve atelectasis right lung base. Heart size is enlarged. There are patchy infiltrates the left upper lobe and lingula. No pneumothorax. Impression: 1. Patchy infiltrates are similar concerning for multifocal pneumonia. 2. Moderate to large layering right pleural effusion.
[2019-04-21] MEDS: cefTRIAXone\\ROCEPHIN 2 GM in Sodium Chloride 0.9% 100 ML IVPB SCH (22:49)
[2019-04-22] MEDS: Furosemide 40 MG/4 ML VIAL SLOW IVP SCH ×2 (05:23→14:15)
[2019-04-22] MEDS: methylPREDNISolone Sod Succ 40 MG VIAL IVP SCH ×4 (05:24→23:34)
[2019-04-22 05:45] LABS: #Lymphocytes 0.2 thou/uL (1.20-3.40); #Monocytes 0.2 thou/uL (0.11-0.59); #Neutrophils 5.5 thou/uL (1.40-6.50); %Basophils 0.5 % (0.0-1.0); %Eosinophils 0.2 % (0.0-10.0); %Monocytes 3.6 % (0.0-10.0); %Neutrophils 91.7 % (42.0-75.0); Hemoglobin 11.2 g/dL (12.0-16.0); Mean Corpuscular HGB CONC 31.6 g/dL (32.0-36.0); Mean Corpuscular Hemoglobin 31.4 pg (27.0-31.0); Mean Corpuscular Volume 99.2 fL (78.0-98.0); Mean Platelet Volume 8.5 fL (7.4-10.4); Platelet Count 91 thou/uL (130-400); RBC Distribution Width 14.2 % (11.5-14.5); Red Blood Cell (RBC) Count 3.58 mill/uL (4.20-5.40)
[2019-04-22] MEDS: Digoxin 0.25 MG TAB PO SCH (08:35)
[2019-04-22] MEDS: Magnesium Oxide 400 MG TAB PO SCH ×2 (08:35→20:35)
[2019-04-22] MEDS: Polyethylene Glycol 3350 17 GM Packet PO SCH (08:36)
--- NOTE | 2019-04-22 10:45 | PDOC.HOSPP ---
- Subjective Subjective: Feels about the same today as yesterday. Still SOB. Denies abdominal pain. Getting history from her piecemeal. She says she recently saw Dr. Cleary for the right ureteral stone. She had mild hydro and the stone was small. She says he was planning on placing a stent and "breaking up the stone". Dr. Zamarripa told her that she should not do any procedures until released by him. She had some work up done through his office, but she has not had follow up and was not released for a procedure. She does not have a thread separator. - Objective Vital Signs & Weight: Vital Signs (12 hours) Temp Pulse Resp BP BP Pulse Ox 04/22/19 08:30 96.9 F L 67 20 126/60 92 L 04/22/19 07:20 78 16 96 04/22/19 04:15 97.7 F 80 24 H 112/54 L 94 L 04/22/19 02:27 94 L 04/22/19 01:52 81 16 94 L 04/21/19 23:00 97.7 F 80 24 H 114/56 L 94 L Weight Admit Weight 154 lb Weight 149 lb 6.4 oz I&O: 04/21/19 04/22/19 04/23/19 06:59 06:59 05:59 Intake Total 1140 580 Output Total 1600 450 Balance -460 130 Result Diagrams: 04/22/19 04:46 04/21/19 12:17 Hospitalist ROS - Medication Medications: Active Medications Generic Name Dose Route Start Last Admin Trade Name Freq PRN Reason Stop Dose Admin Hydrocodone Bitart/Acetaminophen 1 tab 04/19/19 15:47 04/19/19 15:53 [place] 5/325 PO 1 tab Q6H PRN Administration Moderate to Severe Pain (4-10) Albuterol/Ipratropium 3 ml 04/19/19 01:00 04/22/19 07:20 Duoneb NEB 3 ml [id number] JASON Administration Cholecalciferol 1,000 units 04/19/19 09:00 04/22/19 08:35 Vitamin D3 PO 1,000 units DAILY JASON Administration Digoxin 0.25 mg 04/19/19 09:00 04/22/19 08:35 Lanoxin PO 0.25 mg DAILY JASON Administration Diltiazem HCl 120 mg 04/19/19 09:00 04/22/19 08:36 Cardizem Cd PO 120 mg DAILY JASON Administration Furosemide 40 mg 04/21/19 06:00 04/22/19 05:23 Lasix SLOW IVP 40 mg 0600,1400 JASON Administration Magnesium Oxide 400 mg 04/19/19 21:00 04/22/19 08:35 Magnesium Oxide PO 400 mg BID JASON Administration Melatonin 6 mg 04/18/19 22:50 04/20/19 21:29 Melatonin PO 6 mg HSPRN PRN Administration Insomnia Methylprednisolone Sodium Succinate 40 mg 04/21/19 12:00 04/22/19 05:24 Solu-Medrol IVP 40 mg Q6HR JASON Administration Metoprolol Succinate 50 mg 04/19/19 09:00 04/22/19 08:35 Toprol Xl PO 50 mg DAILY JASON Administration Pantoprazole Sodium 40 mg 04/19/19 09:00 04/22/19 08:35 Protonix PO 40 mg DAILY JASON Administration Polyethylene Glycol 17 gm 04/19/19 09:00 04/22/19 08:36 Miralax PO 17 gm DAILY JASON Administration Sodium Chloride 10 ml 04/18/19 22:55 04/20/19 21:29 Flush - Normal Saline IVF 10 ml Q12HR PRN Administration Saline Flush Sodium Chloride 10 ml 04/18/19 22:55 04/22/19 05:24 Flush - Normal Saline IVF 10 ml PRN PRN Administration Saline Flush - Exam General Appearance: NAD, awake alert Heart: RRR, no murmur Respiratory: rales, wheezes Gastrointestinal: soft, non-tender, non-distended, normal bowel sounds, no palpable masses, no hepatomegaly, no splenomegaly, no bruit Skin: normal turgor Musculoskeletal: normal tone Psychiatric: normal affect, normal behavior, A&O x 3 Hosp A/P (1) CHF (congestive heart failure) Code(s): I50.9 - HEART FAILURE, UNSPECIFIED Status: Acute (2) Constipation Code(s): K59.00 - CONSTIPATION, UNSPECIFIED Status: Acute (3) Alcoholic cirrhosis of liver Code(s): K70.30 - ALCOHOLIC CIRRHOSIS OF LIVER WITHOUT ASCITES Status: Acute (4) Atrial fibrillation Code(s): I48.91 - UNSPECIFIED ATRIAL FIBRILLATION Status: Acute (5) UTI (urinary tract infection) Status: Acute (6) Acute respiratory failure with hypoxia Code(s): J96.01 - ACUTE RESPIRATORY FAILURE WITH HYPOXIA Status: Acute (7) Myocardial infarct Code(s): I21.9 - ACUTE MYOCARDIAL INFARCTION, UNSPECIFIED Status: Acute Qualifiers: Myocardial infarction type: type 2 Qualified Code(s): I21.A1 - Myocardial infarction type 2 (8) Ureterolithiasis Code(s): N20.1 - CALCULUS OF URETER Status: Acute (9) Infiltrate of lung present on chest x-ray Code(s): R91.8 - OTHER NONSPECIFIC ABNORMAL FINDING OF LUNG FIELD Status: Acute (10) COPD exacerbation Code(s): J44.1 - CHRONIC OBSTRUCTIVE PULMONARY DISEASE W (ACUTE) EXACERBATION Status: Acute - Plan Continue higher dose lactulose. Persistent wheezes and rales. Not improved. CXR now more consistent with multi-lobar pneumonia. Change abx to Vanc/Zosyn Added steroids. Continue scheduled and PRN nebs. Given that she is not getting better, will consult Pulm as well. Renal US now shows much increased right hydronephrosis. Had recent CT with small stone and mild hyrdo. Apparently the plan was to stent this, but was awaiting cardiology clearance. Will consult Urology. May need stent sooner than later, but she now has the pneumonia, COPD and hypoxia complicating the course. Review of the CT shows a small right ureteral stone with very mild hydro. US renal today given that she did have the stone and the E coli. Continue Diuresis. Consult Cardiology. Unclear what the OP work-up was with Dr. Zamarripa. May need to be cleared for the procedure.
[2019-04-22] MEDS: Piperacillin/Tazobactam 3.375 GM in Sodium Chloride 0.9% 100 ML IVPB SCH ×3 (12:08→23:35)
--- NOTE | 2019-04-22 12:15 | CT ---
EXAM: ABDOMEN AND PELVIC CT SCAN WITHOUT CONTRAST: HISTORY: Hydronephrosis. COMPARISON: 03/20/2019. FINDINGS: Bilateral pleural fluid. There is multifocal consolidation of the visualized lung bases. Marked enlar gement of cardiac chambers. Liver: Cirrhotic morphology of the liver. Limited evaluation for underlying hepatic lesions due to no ncontrast technique. Gallbladder: Moderate distention with cholelithiasis. Pancreas: There is peripancreatic edema, which has progressed from prior exam. Spleen: Stable. Adrenal glands: Unremarkable. Kidneys: Interval distal migration of prior right ureteral calculus, approximately 5 mm in size, now located at the distal right ureter. There is associated prominent distention of the right renal pelvis, and moderate distention of the right renal calyces and right ureter. There are additional yaneli ateral renal calculi. Bowel: Limited evaluation by noncontrast technique. Stable periumbilical fat-containing hernia with edema. Diffuse body wall edema compatible with anasarca. Urinary Bladder: Punctate calcific density, 2 mm in size abuts the posterior urinary bladder, similar appearing. Free Air: No free air. Ascites: No ascites. IVC filter remains in place. Osseous structures: No acute osseous abnormalities. IMPRESSION: 1. Interval distal migration of right ureteral calculus, residing within the distal right ureter pro ducing prominent distention of the right renal pelvis, and moderate distention of the right renal calyces and right ureter. Bilateral nephrolithiasis. 2. Hepatic cirrhosis, with anasarca. 3. Multifocal consolidation of the lung bases with associated pleural fluid. Correlate clinically. Transcribed Date/Time: 04/22/2019 12:20 PM
--- NOTE | 2019-04-22 13:52 | CON ---
DATE OF CONSULTATION: 04/22/2019 This encompassed 75 minutes of time, of that time, greater than 50% was spent with the patient and/or the patient's unit in the hospital. REASON FOR CONSULTATION: Abnormal chest x-ray and pneumonia. HISTORY OF PRESENT ILLNESS: The patient is somewhat difficult to get a history from because she has short-term memory loss. She was initially admitted to the hospital on 05/20 by the hospitalist group for feet swelling and difficulty urinating. She has since developed bilateral diffuse infiltrates on her x-ray. I am told that she has nephrolithiasis and is being considered for either lithotripsy or stent placement. She apparently has E coli growing from her urine culture. PAST MEDICAL HISTORY: 1. Chronic obstructive pulmonary disease. 2. Atrial fibrillation. 3. Gastroesophageal reflux. 4. Breast cancer. 5. Congestive heart failure with valvular heart disease. 6. Hepatic encephalopathy. 7. Cirrhosis. 8. Pulmonary embolism with IVC filter placement. 9. Deep venous thrombosis. 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 PAST SURGICAL HISTORY: 1. Tonsillectomy and adenoidectomy. 2. Ovarian wedge resection. 3. Cardiac catheterization. 4. Electrical cardioversion. SOCIAL HISTORY: She lives alone and apparently is fully independent. She smokes 2 to 3 cigarettes a day. Does not consume alcohol. MEDICATIONS: Prior to admission: 1. Albuterol. 2. Cholecalciferol. 3. Digoxin. 4. Diltiazem. 5. Furosemide. 6. Lactulose. 7. Melatonin. 8. Metoprolol. 9. Omeprazole. 10. Potassium chloride. 11. vitamin. 12. Xifaxan. ALLERGIES: IBUPROFEN. REVIEW OF SYSTEMS: Otherwise negative. PHYSICAL EXAMINATION: VITAL SIGNS: Temperature 98.1, pulse 72, respirations 18, O2 saturation 92% on 3 L, and blood pressure 115/58. GENERAL: The patient is sitting up, she is tearful. She is in no acute distress. HEENT: Pupils react. Sclerae icteric. Oropharynx clear. NECK: No adenopathy or JVD. LUNGS: She has inspiratory crackles at both bases. CARDIOVASCULAR: S1 and S2 regular with 3/6 systolic murmur at the left sternal border. ABDOMEN: Soft and nontender to palpation. EXTREMITIES: No clubbing or cyanosis. Trace edema. LABORATORY DATA: Urine culture is growing out E coli. White blood cell count 6, hematocrit 35.5, and platelet count 91. INR 1.4 and PTT 37.6. Sodium 137, potassium 4.1, chloride 99, CO2 of 31, BUN 15, creatinine 0.6, and glucose 136. Albumin is 2.9. IMAGING STUDIES: Chest x-ray shows diffuse bilateral infiltrative changes with extreme cardiomegaly. Echocardiogram demonstrates an EF of 55% to 60% with severely dilated left atrium. Moderate mitral regurgitation and [id number] aortic stenosis. ASSESSMENT: 1. Sepsis secondary to urinary tract infection. 2. Diffuse bilateral pulmonary infiltrates, which I favor being from pulmonary edema from congestive heart failure and perhaps not pneumonia as was thought. 3. Multiple and numerous other medical problems as listed above. RECOMMENDATIONS: 1. Continue antibiotics as you are doing. 2. Agree with the diuresis of this patient. 3. Wean steroids as quickly as possible. 4. Dr. Macias has seen the patient before. I will notify him of her admission. Job ID: [id number]
--- NOTE | 2019-04-22 17:57 | CON ---
DATE OF CONSULTATION: HISTORY OF PRESENT ILLNESS: The patient is a 73-year-old woman with a history of atrial fibrillation and cerebrovascular accident, who presented with abdominal discomfort and dyspnea. The patient has a previous history of coronary artery disease. She underwent a previous cardiac catheterization in 2001. She was found to have moderate coronary artery disease with 30% LAD lesion, 40% diagonal lesion, and 20% RCA lesion. The patient also subsequently developed paroxysmal atrial fibrillation. She has been on chronic anticoagulation. She had a significant bleed and was unable to remain on therapy. The patient also has a history of cirrhosis . She was in her usual state of health, when she presented with abdominal discomfort, she also developed mild dyspnea. She denied having any chest discomfort. PAST MEDICAL HISTORY: Significant for, 1. CAD. 2. Atrial fibrillation. 3. Ehkvp-Keknk-Mnmrq syndrome. 4. Hypertension. 5. Kidney stones. PAST SURGICAL HISTORY: She has had ovarian surgery, cataract surgery, and hip surgery. SOCIAL HISTORY: The patient continues to abuse tobacco. She no longer drinks excessive amounts of alcohol. MEDICATIONS: 1. Digoxin 0.125 daily. 2. Cardizem 30 b.i.d. 3. Omeprazole 40 daily. 4. Lasix 40 daily. 5. Spironolactone 100 mg daily. REVIEW OF SYSTEMS: Ten-point system otherwise unremarkable. PHYSICAL EXAMINATION: GENERAL AND VITAL SIGNS: This is an obese woman, in no acute distress with a blood pressure of 115/58. NECK: Showed no jugular venous distention. LUNGS: Clear to auscultation. HEART: Irregular rate and rhythm with a normal S1, S2, 2/6 systolic murmur. ABDOMEN: Distended. EXTREMITIES: Showed mild bilateral edema. Vascular radial pulses 2+. LABORATORY DATA: Sodium 137, potassium 4.1, chloride 99, bicarbonate 31, BUN 15, creatinine 0.68, and glucose 136. Her white blood cell count 6.0, hemoglobin 11.2, hematocrit 35.5, and platelets are 91. DIAGNOSTIC DATA: Her EKG revealed atrial fibrillation with Q-wave suggestive of previous inferior infarct. IMPRESSION: 1. Congestive heart failure. 2. Persistent atrial fibrillation. 3. History of coronary artery disease. 4. Hypertension. This patient presents with mild congestive heart failure. She had an echocardiogram performed, which revealed normal left ventricular ejection fraction and [id number] valvular heart disease. The patient has been diuresed with Lasix. The patient has cirrhosis and a history of gastrointestinal hemorrhage, so cannot be on anticoagulation therapy. We will follow this patient with you through her hospitalization. Please call my office. Job ID: [id number]
[2019-04-22] MEDS: Vancomycin HCl 1 GM in Premix Bag 1 BAG IVPB SCH (20:35)
[2019-04-23] MEDS: methylPREDNISolone Sod Succ 40 MG VIAL IVP SCH ×4 (05:42→23:58)
[2019-04-23] MEDS: Furosemide 40 MG/4 ML VIAL SLOW IVP SCH ×2 (05:42→13:57)
[2019-04-23] MEDS: Piperacillin/Tazobactam 3.375 GM in Sodium Chloride 0.9% 100 ML IVPB SCH ×4 (05:45→23:58)
[2019-04-23] MEDS: Polyethylene Glycol 3350 17 GM Packet PO SCH (09:06)
[2019-04-23] MEDS: Vancomycin HCl 1 GM in Premix Bag 1 BAG IVPB SCH ×2 (09:06→21:07)
[2019-04-23] MEDS: Magnesium Oxide 400 MG TAB PO SCH ×2 (09:10→21:07)
[2019-04-23] MEDS: Digoxin 0.25 MG TAB PO SCH (09:10)
--- NOTE | 2019-04-23 11:14 | PDOC.HOSPP ---
- Subjective Encounter Date: 04/23/19 Encounter Time: 11:26 Subjective: Feels about the same. Says she sleepy alot. Sleeps on her right side because she had left hip surgery and she is only comfortable on her right side. No significant BM. 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 95 Weight Admit Weight 154 lb Weight 157 lb 1.6 oz I&O: 04/22/19 04/23/19 04/24/19 07:59 06:59 06:59 Intake Total Output Total Balance Result Diagrams: 04/22/19 04:46 04/21/19 12:17 Hospitalist ROS - Medication Medications: Active Medications Generic Name Dose Route Start Last Admin Trade Name Freq PRN Reason Stop Dose Admin Hydrocodone Bitart/Acetaminophen 1 tab 04/19/19 15:47 04/19/19 15:53 [place] 5/325 PO 1 tab Q6H PRN Administration Moderate to Severe Pain (4-10) Albuterol/Ipratropium 3 ml 04/19/19 01:00 04/23/19 06:31 Duoneb NEB 3 ml [id number] JASON Administration Cholecalciferol 1,000 units 04/19/19 09:00 04/23/19 09:10 Vitamin D3 PO 1,000 units DAILY JASON Administration Digoxin 0.25 mg 04/19/19 09:00 04/23/19 09:10 Lanoxin PO 0.25 mg DAILY JASON Administration Diltiazem HCl 120 mg 04/19/19 09:00 04/23/19 09:10 Cardizem Cd PO 120 mg DAILY JASON Administration Piperacillin Sod/Tazobactam 100 mls @ 200 mls/hr 04/22/19 12:00 04/23/19 05: 45 Sod 3.375 gm/ Sodium Chloride IVPB 100 mls Q6HR JASON Administration Vancomycin HCl 1 gm/ Device 200 mls @ 200 mls/hr 04/22/19 21:00 04/23/19 09: 06 IVPB 200 mls Q12HR JASON Administration Magnesium Oxide 400 mg 04/19/19 21:00 04/23/19 09:10 Magnesium Oxide PO 400 mg BID JASON Administration Melatonin 6 mg 04/18/19 22:50 04/20/19 21:29 Melatonin PO 6 mg HSPRN PRN Administration Insomnia Methylprednisolone Sodium Succinate 40 mg 04/21/19 12:00 04/23/19 05:42 Solu-Medrol IVP 40 mg Q6HR JASNO Administration Metoprolol Succinate 50 mg 04/19/19 09:00 04/23/19 09:10 Toprol Xl PO 50 mg DAILY JASON Administration Pantoprazole Sodium 40 mg 04/19/19 09:00 04/23/19 09:10 Protonix PO 40 mg DAILY JASON Administration Polyethylene Glycol 17 gm 04/19/19 09:00 04/23/19 09:06 Miralax PO 17 gm DAILY JASON Administration Sodium Chloride 10 ml 04/18/19 22:55 04/22/19 20:37 Flush - Normal Saline IVF 10 ml Q12HR PRN Administration Saline Flush Sodium Chloride 10 ml 04/18/19 22:55 04/22/19 05:24 Flush - Normal Saline IVF 10 ml PRN PRN Administration Saline Flush - Exam General Appearance: NAD, awake alert Heart: no murmur, no gallops, no rubs, normal peripheral pulses, irregular Respiratory: no rales (Diffusely diminished.) Gastrointestinal: soft, non-tender, normal bowel sounds, distended (mildly) Extremities: no cyanosis, no clubbing, no edema Skin: normal turgor Musculoskeletal: normal tone Psychiatric: normal affect, normal behavior, A&O x 3 Psychiatric - other findings: Usually sleeping when I enter the room. Hosp A/P (1) CHF (congestive heart failure) Code(s): I50.9 - HEART FAILURE, UNSPECIFIED Status: Acute (2) Constipation Code(s): K59.00 - CONSTIPATION, UNSPECIFIED Status: Acute (3) Alcoholic cirrhosis of liver Code(s): K70.30 - ALCOHOLIC CIRRHOSIS OF LIVER WITHOUT ASCITES Status: Acute (4) Atrial fibrillation Code(s): I48.91 - UNSPECIFIED ATRIAL FIBRILLATION Status: Acute (5) UTI (urinary tract infection) Status: Acute (6) Acute respiratory failure with hypoxia Code(s): J96.01 - ACUTE RESPIRATORY FAILURE WITH HYPOXIA Status: Acute (7) Myocardial infarct Code(s): I21.9 - ACUTE MYOCARDIAL INFARCTION, UNSPECIFIED Status: Acute Qualifiers: Myocardial infarction type: type 2 Qualified Code(s): I21.A1 - Myocardial infarction type 2 (8) Ureterolithiasis Code(s): N20.1 - CALCULUS OF URETER Status: Acute (9) Infiltrate of lung present on chest x-ray Code(s): R91.8 - OTHER NONSPECIFIC ABNORMAL FINDING OF LUNG FIELD Status: Acute (10) COPD exacerbation Code(s): J44.1 - CHRONIC OBSTRUCTIVE PULMONARY DISEASE W (ACUTE) EXACERBATION Status: Acute (11) Atelectasis Status: Acute - Plan Continue higher dose lactulose. Appreciate Pulm input. Changed abx to Vanc/Zosyn Added steroids. Continue scheduled and PRN nebs. Added IS for apparent atelectasis. Increase mobility. Renal US now shows much increased right hydronephrosis. CT shows migration of the stone to the distal ureter with proximal hydro. Apparently the plan was to stent this, but was awaiting cardiology clearance. Discussed with Dr. Shahid. Adding Tamsulosin. Review of the CT shows a small right ureteral stone with very mild hydro. US renal today given that she did have the stone and the E coli. Diuresis intially ineffective. Increased Lasix to 60mg IV bid. Added Metolazone 5 mg po bid. Added Aldactone 25 mg po q day. Watch potassium closely. Cardiology following. Change lactulose to scheduled. Afib stable. Anticoagulation contraindicated due to hx of GIB.
[2019-04-23] MEDS ORDERED: Spironolactone 25 MG TAB PO SCH (11:15)
[2019-04-23] MEDS ORDERED: Tamsulosin HCl 0.4 MG CAP PO SCH (11:15)
--- NOTE | 2019-04-23 12:45 | PRG ---
DATE OF SERVICE: 04/23/2019 SUBJECTIVE: Ms. Umana feels about the same. OBJECTIVE: VITAL SIGNS: Temperature 97.7, pulse 75, respirations 18, O2 saturation 94% on 2 L, and blood pressure 110/65. Intake 1726 and output 1600. HEENT: Unremarkable. NECK: No adenopathy or JVD. LUNGS: She has diminished breath sounds in the bases. CARDIAC: S1 and S2. Regular. ABDOMEN: Soft and nontender. EXTREMITIES: No edema. ASSESSMENT: 1. Likely congestive heart failure. 2. Less likely pneumonitis. 3. Chronic obstructive pulmonary disease. 4. Right-sided hydronephrosis. PLAN: 1. Continuing diuresis. 2. Continue antibiotics for the E. coli urinary tract infection. 3. Probably will need another chest x-ray on Wednesday. Job ID: [id number]
[2019-04-23] MEDS: Metolazone 5 MG TAB PO SCH (13:58)
[2019-04-23] MEDS: Tamsulosin HCl 0.4 MG CAP PO SCH (21:07)
[2019-04-24] MEDS: methylPREDNISolone Sod Succ 40 MG VIAL IVP SCH ×3 (04:59→17:36)
[2019-04-24] MEDS: Metolazone 5 MG TAB PO SCH ×2 (04:59→13:44)
[2019-04-24] MEDS: Piperacillin/Tazobactam 3.375 GM in Sodium Chloride 0.9% 100 ML IVPB SCH ×3 (05:00→17:35)
[2019-04-24] MEDS: Furosemide 40 MG/4 ML VIAL SLOW IVP SCH ×2 (05:44→13:44)
--- NOTE | 2019-04-24 07:15 | CON ---
DATE OF CONSULTATION: 04/22/2019 REASON FOR CONSULTATION: Right ureteral stone and right hydronephrosis and UTI. REQUESTING PHYSICIAN: Jimmie Perea MD. HISTORY OF PRESENT ILLNESS: Ms. Umana is a 73-year-old female with past urologic history significant for urolithiasis. She has had procedures in the past for ureteral stones. Most recently, she saw Dr. Yordy Cleary and was reportedly scheduled for definitive management of a ureteral stone. However, she required cardiac clearance and she could not get an appointment in a timely fashion with Dr. Zamarripa. She began having some lower extremity edema as well as suprapubic discomfort. She was somewhat short of breath as well and she therefore presented to the emergency department. The patient was admitted for CHF exacerbation as well as urinary tract infection and COPD. During this hospitalization, a urine was performed, which was consistent with UTI. Urine culture grew E coli, pansensitive. A renal ultrasound was performed, which demonstrated severe right hydroureteronephrosis. Dr. Perea then ordered a CT of the abdomen and pelvis, which demonstrated severe hydroureteronephrosis and a distal 5 mm right ureteral calculus. There were tiny nonobstructing bilateral renal calculi as well. Urology was consulted for further evaluation. The patient also had what appeared to be pleural effusion and possibly some consolidation in the lower lung field on the right as well. Radiology report is pending. The patient denies any right-sided flank pain. The suprapubic discomfort has resolved. No fever or chills. No gross hematuria. No other complaints. REVIEW OF SYSTEMS: Full 12-point review of systems was performed and is negative other than that mentioned in HPI. PAST MEDICAL HISTORY: COPD, atrial fibrillation, gastroesophageal reflux disease, history of left breast cancer, CHF. PAST SURGICAL HISTORY: Tonsillectomy, right foot surgery, left hip surgery, ovarian surgery. MEDICATIONS: 1. Albuterol. 2. Cholecalciferol. 3. Digoxin. 4. Diltiazem. 5. Furosemide. 6. Lactulose. 7. Melatonin. 8. Metoprolol. 9. Omeprazole. 10. Potassium chloride. 11. vitamin. 12. Xifaxan. ALLERGIES: IBUPROFEN. FAMILY HISTORY: Noncontributory. SOCIAL HISTORY: She lives alone and is fully independent. She is a long-term smoker and currently only smokes 2 to 3 cigarettes a day, but has greater than 70 pack-year smoking history. No alcohol. PHYSICAL EXAMINATION: VITAL SIGNS: Temperature is 98.1, pulse 72, respirations 18, oxygen saturation 90% on 3 L nasal cannula, blood pressure 115/58. GENERAL: She is alert and oriented x3, in no apparent distress. HEENT: Normocephalic, atraumatic. NECK: Supple. No masses or lymphadenopathy. CARDIOVASCULAR: Regular rate and rhythm. PULMONARY: Shortness of breath present. Breathing unlabored. ABDOMEN: Obese, soft, nontender/nondistended. No masses or organomegaly. No suprapubic tenderness to palpation. No CVA tenderness. EXTREMITIES: 1+ bilateral lower extremity edema. NEUROLOGIC: No focal deficits. LABORATORY DATA: White blood cell count 6.0, hemoglobin 11.2, hematocrit 35.5, platelets 91. Sodium 137, potassium 4.1, chloride 99, bicarb 31, BUN 15, creatinine 0.68. A urine culture growing pansensitive E coli. RADIOLOGY DATA: CT of the abdomen and pelvis and renal ultrasound were reviewed. See above findings in HPI for details. ASSESSMENT: A 73-year-old female with urinary tract infection, 5 mm distal right ureteral stone, right hydroureteronephrosis, and multiple acute on chronic comorbidities as listed above. PLAN: I reviewed ureterolithiasis with the patient in detail and her clinical course to date. This stone has now been present for over 6 weeks based on imaging and has migrated to the distal ureter, although she does have moderate to severe right hydroureteronephrosis. She is currently asymptomatic. She does have a positive urine culture and she is on culture specific antibiotics. Both Cardiology and Pulmonary consults have been placed by the primary team. At this point, we will continue to treat urinary tract infection and monitor the patient's symptoms. If she acutely worsens, she may require urgent right ureteral stent placement. Otherwise, her stone could likely be definitively managed possibly with ureteroscopy with laser lithotripsy early next week to avoid multiple procedures requiring anesthesia. We feel it would be best to perform this in one procedure next week unless she clinically changes. This plan was discussed with the primary team. Thank you for allowing me to participate in the care of this patient. Job ID: [id number]
[2019-04-24 08:28] LABS: Vancomycin, Trough 18.6 ug/mL
[2019-04-24] MEDS: Vancomycin HCl 1 GM in Premix Bag 1 BAG IVPB SCH ×2 (09:35→20:52)
[2019-04-24] MEDS: Polyethylene Glycol 3350 17 GM Packet PO SCH (09:35)
[2019-04-24] MEDS: Magnesium Oxide 400 MG TAB PO SCH ×2 (09:36→20:53)
[2019-04-24] MEDS: Digoxin 0.25 MG TAB PO SCH (09:36)
[2019-04-24] MEDS: Spironolactone 25 MG TAB PO SCH (09:36)
[2019-04-24] MEDS ORDERED: Communication Order-Pharmacy FS SCH (11:30)
--- NOTE | 2019-04-24 11:38 | CON ---
DATE OF CONSULTATION: REASON FOR CONSULTATION: Chest pressure and abdominal pain. HISTORY OF PRESENT ILLNESS: Ms. Umana is a 73-year-old, whom I saw and evaluated in the past. She was recently admitted by Dr. Benjamin Díaz. She continues to complain of intermittent chest pressure and shortness of breath. She underwent a noninvasive stress study in the office and was found to have no significant ischemia, but elevated TID that may suggest balanced ischemia. She does have multiple risk factors for underlying coronary artery disease. PHYSICAL EXAMINATION: VITAL SIGNS: Blood pressure 119/59, pulse 76, temperature 97.4. LUNGS: Clear to auscultation. HEART: Regular rate and rhythm. ABDOMEN: Soft, nontender, nondistended. EXTREMITIES: No edema. PERTINENT LABORATORY DATA: Hemoglobin 11.2. Creatinine 0.68. CK troponin negative. IMPRESSION: 1. Recurrent shortness of breath with atypical chest pain. 2. Abdominal discomfort, likely nephrolithiasis. RECOMMENDATIONS: I discussed in detail with Ms. Umana on how to proceed. Discussed a conservative versus more aggressive approach. She would like to know why she had significant shortness of breath. She does have likely underlying COPD from tobacco abuse. She also has elevated TID that would suggest a balanced ischemia. I discussed the procedure in full detail with the patient. The risks of the procedure were also discussed. The risks of the procedure include but are not limited to the following: , stroke, AL, need for emergency surgery, loss of limb, bleeding, and infection, as well as a reaction to the dye causing kidney failure and needing long-term dialysis. I also discussed the risks of PCI to include all of the above including coronary dissection and perforation in addition to acute stent thrombosis and restenosis. All questions about the procedure were answered. Given the above, the patient agreed to proceed with coronary angiography and possible PCI. All questions were answered. Given the above, the patient agreed to proceed above procedure. She does have a history of cirrhosis with a GI bleed. We will proceed with a bare-metal stent if needed. She understands. We will proceed if needed. Job ID: [id number]
[2019-04-24] MEDS ORDERED: Lidocaine 1% (PF) 30 ML VIAL ONE (11:52)
[2019-04-24] MEDS ORDERED: Fentanyl 100 MCG/2 ML VIAL ONE (12:43)
[2019-04-24] MEDS ORDERED: Midazolam HCl 2 mg/2 ml Vial ONE (12:43)
[2019-04-24] MEDS ORDERED: Acetaminophen/Codeine 30-300mg Tablet PO PRN ×2 (13:02)
[2019-04-24] MEDS ORDERED: Nitroglycerin 0.4 MG TAB (25 Tab Bottle) SL PRN (13:02)
[2019-04-24] MEDS ORDERED: Sodium Chloride 0.9% 200 ML IV PRN (13:02)
[2019-04-24] MEDS ORDERED: Sodium Chloride 0.9% 1,000 ML IV SCH (13:15)
[2019-04-24] MEDS ORDERED: Iopamidol 370 76% 100 ML VIAL ONE (15:01)
[2019-04-24] MEDS: Tamsulosin HCl 0.4 MG CAP PO SCH (20:52)
--- NOTE | 2019-04-24 20:57 | PDOC.HOSPP ---
- Subjective Subjective: Had cath today. No occlusive disease. Feels ok. Says she is definitely better than she was. - Objective Vital Signs & Weight: Vital Signs (12 hours) Temp Pulse Resp BP BP Pulse Ox 04/24/19 18:45 67 16 96 04/24/19 16:00 97.6 F 56 L 26 H 113/53 L 56 L 04/24/19 13:39 65 18 96 04/24/19 12:00 97.6 F 68 19 105/55 L 97 04/24/19 09:36 71 04/24/19 09:15 97.8 F 73 20 106/50 L 96 Weight Admit Weight 154 lb Weight 158 lb I&O: 04/23/19 04/24/19 04/25/19 06:59 06:59 06:59 Intake Total 1900 Output Total 550 Balance 1350 Result Diagrams: 04/22/19 04:46 04/21/19 12:17 Hospitalist ROS - Medication Medications: Active Medications Generic Name Dose Route Start Last Admin Trade Name Freq PRN Reason Stop Dose Admin Hydrocodone Bitart/Acetaminophen 1 tab 04/19/19 15:47 04/19/19 15:53 [place] 5/325 PO 1 tab Q6H PRN Administration Moderate to Severe Pain (4-10) Albuterol/Ipratropium 3 ml 04/19/19 01:00 04/24/19 18:45 Duoneb NEB 3 ml [id number] JASON Administration Cholecalciferol 1,000 units 04/19/19 09:00 04/24/19 09:36 Vitamin D3 PO 1,000 units DAILY JASON Administration Diltiazem HCl 120 mg 04/19/19 09:00 04/24/19 09:36 Cardizem Cd PO 120 mg DAILY JASON Administration Furosemide 60 mg 04/23/19 14:00 04/24/19 13:44 Lasix SLOW IVP 60 mg 0600,1400 JASON Administration Piperacillin Sod/Tazobactam 100 mls @ 200 mls/hr 04/22/19 12:00 04/24/19 17: 35 Sod 3.375 gm/ Sodium Chloride IVPB 100 mls Q6HR JASON Administration Vancomycin HCl 1 gm/ Device 200 mls @ 200 mls/hr 04/22/19 21:00 04/24/19 20: 52 IVPB 200 mls Q12HR JASON Administration Lactulose 10 gm 04/24/19 21:00 04/24/19 20:53 Lactulose PO Not Given BID JASON Magnesium Oxide 400 mg 04/19/19 21:00 04/24/19 20:53 Magnesium Oxide PO 400 mg BID JASON Administration Melatonin 6 mg 04/18/19 22:50 04/20/19 21:29 Melatonin PO 6 mg HSPRN PRN Administration Insomnia Methylprednisolone Sodium Succinate 40 mg 04/21/19 12:00 04/24/19 17:36 Solu-Medrol IVP 40 mg Q6HR JASON Administration Metolazone 5 mg 04/23/19 13:30 04/24/19 13:44 Zaroxolyn PO 5 mg 0530,1330 JASON Administration Metoprolol Succinate 50 mg 04/19/19 09:00 04/24/19 09:36 Toprol Xl PO 50 mg DAILY JASON Administration Pantoprazole Sodium 40 mg 04/19/19 09:00 04/24/19 09:36 Protonix PO 40 mg DAILY JASON Administration Polyethylene Glycol 17 gm 04/19/19 09:00 04/24/19 09:35 Miralax PO 17 gm DAILY JASON Administration Sodium Chloride 10 ml 04/18/19 22:55 04/22/19 20:37 Flush - Normal Saline IVF 10 ml Q12HR PRN Administration Saline Flush Sodium Chloride 10 ml 04/18/19 22:55 04/22/19 05:24 Flush - Normal Saline IVF 10 ml PRN PRN Administration Saline Flush Spironolactone 25 mg 04/24/19 08:00 04/24/19 09:36 Aldactone PO 25 mg QAM-WM JASON Administration Tamsulosin HCl 0.4 mg 04/23/19 21:00 04/24/19 20:52 Flomax PO 0.4 mg HS JASON Administration - Exam General Appearance: NAD, awake alert Heart: RRR, no murmur, no gallops, no rubs, normal peripheral pulses Respiratory: CTAB, no wheezes, no ronchi, normal chest expansion, no tachypnea, normal percussion, rales (Minimal. Improved.) Gastrointestinal: soft, non-tender, normal bowel sounds, no palpable masses, no hepatomegaly, no splenomegaly, no bruit, distended (minimal.) Gastrointestinal - other findings: Umbilical hernia that easily reduces. Extremities: no cyanosis, no clubbing, no edema Skin: normal turgor, no lesions, no rashes Neurological: no focal deficits Psychiatric: normal affect, normal behavior, A&O x 3 Hosp A/P (1) CHF (congestive heart failure) Code(s): I50.9 - HEART FAILURE, UNSPECIFIED Status: Acute (2) Constipation Code(s): K59.00 - CONSTIPATION, UNSPECIFIED Status: Acute (3) Alcoholic cirrhosis of liver Code(s): K70.30 - ALCOHOLIC CIRRHOSIS OF LIVER WITHOUT ASCITES Status: Acute (4) Atrial fibrillation Code(s): I48.91 - UNSPECIFIED ATRIAL FIBRILLATION Status: Acute (5) UTI (urinary tract infection) Status: Acute (6) Acute respiratory failure with hypoxia Code(s): J96.01 - ACUTE RESPIRATORY FAILURE WITH HYPOXIA Status: Acute (7) Myocardial infarct Code(s): I21.9 - ACUTE MYOCARDIAL INFARCTION, UNSPECIFIED Status: Acute Qualifiers: Myocardial infarction type: type 2 Qualified Code(s): I21.A1 - Myocardial infarction type 2 (8) Ureterolithiasis Code(s): N20.1 - CALCULUS OF URETER Status: Acute (9) Infiltrate of lung present on chest x-ray Code(s): R91.8 - OTHER NONSPECIFIC ABNORMAL FINDING OF LUNG FIELD Status: Acute (10) COPD exacerbation Code(s): J44.1 - CHRONIC OBSTRUCTIVE PULMONARY DISEASE W (ACUTE) EXACERBATION Status: Acute (11) Atelectasis Status: Acute - Plan Reduce lactose as she his having too frequent BM's. Appreciate Pulm input. Changed abx to Vanc/Zosyn Added steroids. Continue scheduled and PRN nebs. Added IS for apparent atelectasis. Increase mobility. Renal US now shows much increased right hydronephrosis. CT shows migration of the stone to the distal ureter with proximal hydro. Apparently the plan was to stent this, but was awaiting cardiology clearance. Discussed with Dr. Shahid. Adding Tamsulosin. Repeat CT with migration of the stone, but persistent hydro. Remains asymptomatic. Diuresis intially ineffective. Increased Lasix to 60mg IV bid. Added Metolazone 5 mg po bid. Added Aldactone 25 mg po q day. Watch potassium closely. Cardiology following. Cath with no occlusive disease. Afib stable. Anticoagulation contraindicated due to hx of GIB.
[2019-04-25] MEDS: methylPREDNISolone Sod Succ 40 MG VIAL IVP SCH ×5 (00:35→23:29)
[2019-04-25] MEDS: Piperacillin/Tazobactam 3.375 GM in Sodium Chloride 0.9% 100 ML IVPB SCH ×5 (00:35→23:31)
[2019-04-25] MEDS: Metolazone 5 MG TAB PO SCH ×2 (05:26→14:04)
[2019-04-25] MEDS: Furosemide 40 MG/4 ML VIAL SLOW IVP SCH ×2 (05:55→14:04)
--- NOTE | 2019-04-25 08:41 | RAD ---
PORTABLE CHEST: Date: 04/25/19 HISTORY: Pleural effusion. COMPARISON: 04/18/19 and 04/21/19 studies. FINDINGS: Heart size is enlarged. Pulmonary vessels do appear somewhat engorged with interstitial changes which appear to represent more of a patchy infiltrative process than edema. Opacification of the right bas e persists, similar to the prior examination, felt to represent a combination of pleural and parenchy mal lung changes. There is also some blunting to the left costophrenic angle. IMPRESSION: Essentially stable chest. POS: ANGELICA
[2019-04-25] MEDS: Magnesium Oxide 400 MG TAB PO SCH ×2 (09:03→20:31)
[2019-04-25] MEDS: Spironolactone 25 MG TAB PO SCH (09:04)
[2019-04-25] MEDS: Polyethylene Glycol 3350 17 GM Packet PO SCH (09:04)
[2019-04-25] MEDS: Vancomycin HCl 1 GM in Premix Bag 1 BAG IVPB SCH ×3 (09:05→20:31)
--- NOTE | 2019-04-25 11:41 | PQF ---
RIC MAYBERRY DAVID R MD [id number] [facility]-235 [id number] CLINICAL DOCUMENTATION IMPROVEMENT CLARIFICATION FORM: ICD-10 Updated PLEASE DO AN ADDENDUM TO THE PROGRESS NOTE WITH ANY DOCUMENTATION UPDATES OR ADDITIONS AND CARRY THROUGH TO DC SUMMARY. THANK YOU. DATE: 04/25/19 ATTN: Dr. Perea Please exercise your independent, professional judgment in responding to the clarification form. Clinical indicators are provided on the bottom of this form for your review Please check appropriate box(s): HEART FAILURE: A. ACUITY [ ] Acute [ ] Acute on Chronic [ ] Chronic B. TYPE [ ] Diastolic / HFpEF [ ] Hypertensive Heart Disease [ ] Other diagnosis [ ] Unable to determine In addition, please specify: Present on Admission (POA): [ ] Yes [ ] No [ ] Unable to determine For continuity of documentation, please document condition throughout progress notes and discharge summary. Thank You. CLINICAL INDICATORS - SIGNS / SYMPTOMS / LABS / RESULTS AND LOCATION IN EMR Ejection Fraction =-55-60 % per 04/22 Dr. Lugo note Elevated BNP 244.6 per 04/18 labs "Mild dyspnea" per Dr. Díaz 04/22 CXR results 04/18 : enlarged heart with pulmonary vascular congestion and a right infiltrate with accomanying small efusions H&P(Eliazar) 04/18: "congestive heat failure exacerbation; has lower extremity edema, 2+ pitting edema" RISKS FACTORS / RESULTS AND LOCATION IN EMR "History of CAD, HTN; congestive heart failure" per 04/22 Bre note TREATMENTS / RESULTS AND LOCATION IN EMR Administration of BB--> metoprolol 50mg po daily 04/19 to date per orders Cardiac monitoring / telemetry--> 04/18 ordrers ECHO 04/19 orders IV Diuretics--->04/18-04/19 lasix 20mg IV now; 04/19-Lasix 40mg IV daily- 04/21- 04/24 lasix 40mg IV BID; 04/24 Lasix 60mg IV BID; metalazone 5mg po bid, aldactone 25mg qday per orders Cardiology Consult 04/22 per orders Oxygen--> 04/18 2L NC to 04/22 3L NC per orders (This form is maintained as a part of the permanent medical record) 2014 [employer]. All Rights Reserved Katharina He RN, BSN, CCDS [facility]
--- NOTE | 2019-04-25 19:18 | PRG ---
DATE OF SERVICE: 04/25/2019 SUBJECTIVE: Melanie Umana says she is feeling better. She has no complaints. OBJECTIVE: VITAL SIGNS: She is afebrile, heart rates in the 50s, respiratory rates in the teens, oximetry is 93% on 3 L, blood pressure 104/48. LUNGS: Clear. HEART: Regular rhythm. ABDOMEN: Soft. IMAGING DATA: Chest radiographs reviewed shows patchy bilateral infiltrates, more so at the right base. IMPRESSION: 1. ? pneumonia. Radiographs are more suggestive of that than pulmonary edema, but pulmonary edema can look like anything. 2. Underlying obstructive lung disease. 3. Hydronephrosis. 4. Urinary tract infection. PLAN: Continue with current management. We would anticipate that she will need some type of skilled facility after discharge from the hospital. Job ID: [id number]
[2019-04-25] MEDS: Tamsulosin HCl 0.4 MG CAP PO SCH (20:31)
--- NOTE | 2019-04-25 21:32 | PDOC.HOSPP ---
- Subjective Subjective: Feeling some better eager to get up a move some. - Objective Vital Signs & Weight: Vital Signs (12 hours) Temp Pulse Resp BP BP Pulse Ox 04/25/19 18:47 71 16 93 L 04/25/19 16:00 97.7 F 57 L 18 104/48 L 04/25/19 13:48 54 L 18 95 04/25/19 12:30 97.5 F L 65 20 114/54 L 95 Weight Admit Weight 154 lb Weight 157 lb I&O: 04/24/19 04/25/19 04/26/19 06:59 06:59 06:59 Intake Total 1900 1300 Output Total 550 1200 Balance 1350 100 Result Diagrams: 04/22/19 04:46 04/21/19 12:17 Hospitalist ROS - Medication Medications: Active Medications Generic Name Dose Route Start Last Admin Trade Name Freq PRN Reason Stop Dose Admin Hydrocodone Bitart/Acetaminophen 1 tab 04/19/19 15:47 04/19/19 15:53 [place] 5/325 PO 1 tab Q6H PRN Administration Moderate to Severe Pain (4-10) Albuterol/Ipratropium 3 ml 04/19/19 01:00 04/25/19 18:47 Duoneb NEB 3 ml [id number] JASON Administration Cholecalciferol 1,000 units 04/19/19 09:00 04/25/19 09:03 Vitamin D3 PO 1,000 units DAILY JASON Administration Diltiazem HCl 120 mg 04/19/19 09:00 04/25/19 09:03 Cardizem Cd PO 120 mg DAILY JASON Administration Furosemide 60 mg 04/23/19 14:00 04/25/19 14:04 Lasix SLOW IVP 60 mg 0600,1400 JASON Administration Piperacillin Sod/Tazobactam 100 mls @ 200 mls/hr 04/22/19 12:00 04/25/19 17: 42 Sod 3.375 gm/ Sodium Chloride IVPB 100 mls Q6HR JASON Administration Vancomycin HCl 1 gm/ Device 200 mls @ 200 mls/hr 04/22/19 21:00 04/25/19 20: 31 IVPB 200 mls Q12HR JASON Administration Lactulose 10 gm 04/24/19 21:00 04/25/19 20:32 Lactulose PO Not Given BID JASON Magnesium Oxide 400 mg 04/19/19 21:00 04/25/19 20:31 Magnesium Oxide PO 400 mg BID JASON Administration Melatonin 6 mg 04/18/19 22:50 04/20/19 21:29 Melatonin PO 6 mg HSPRN PRN Administration Insomnia Methylprednisolone Sodium Succinate 40 mg 04/21/19 12:00 04/25/19 17:42 Solu-Medrol IVP 40 mg Q6HR JASON Administration Metolazone 5 mg 04/23/19 13:30 04/25/19 14:04 Zaroxolyn PO 5 mg 0530,1330 JASON Administration Metoprolol Succinate 50 mg 04/19/19 09:00 04/25/19 09:04 Toprol Xl PO 50 mg DAILY JASON Administration Pantoprazole Sodium 40 mg 04/19/19 09:00 04/25/19 09:04 Protonix PO 40 mg DAILY JASON Administration Polyethylene Glycol 17 gm 04/19/19 09:00 04/25/19 09:04 Miralax PO 17 gm DAILY JASON Administration Sodium Chloride 10 ml 04/18/19 22:55 04/22/19 20:37 Flush - Normal Saline IVF 10 ml Q12HR PRN Administration Saline Flush Sodium Chloride 10 ml 04/18/19 22:55 04/25/19 05:26 Flush - Normal Saline IVF 10 ml PRN PRN Administration Saline Flush Spironolactone 25 mg 04/24/19 08:00 04/25/19 09:04 Aldactone PO 25 mg QAM-WM JASON Administration Tamsulosin HCl 0.4 mg 04/23/19 21:00 04/25/19 20:31 Flomax PO 0.4 mg HS JASON Administration - Exam General Appearance: NAD, awake alert Neck: supple, symmetric, no JVD, no thyromegaly, no lymphadenopathy, no carotid bruit Heart: RRR, no murmur, no gallops, no rubs, normal peripheral pulses Respiratory: CTAB, no wheezes, no rales, no ronchi, normal chest expansion, no tachypnea, normal percussion Gastrointestinal: soft, non-tender, non-distended, normal bowel sounds, no palpable masses, no hepatomegaly, no splenomegaly, no bruit Skin: normal turgor, no lesions, no rashes Neurological: cranial nerve grossly intact, normal sensation to touch, no weakness, no focal deficits, no new deficit Musculoskeletal: normal tone, normal strength, no muscle wasting Psychiatric: normal affect, normal behavior, A&O x 3 Hosp A/P (1) CHF (congestive heart failure) Code(s): I50.9 - HEART FAILURE, UNSPECIFIED Status: Acute Qualifiers: Heart failure type: systolic Heart failure chronicity: acute on chronic Qualified Code(s): I50.23 - Acute on chronic systolic (congestive) heart failure (2) Alcoholic cirrhosis of liver Code(s): K70.30 - ALCOHOLIC CIRRHOSIS OF LIVER WITHOUT ASCITES Status: Acute (3) Atrial fibrillation Code(s): I48.91 - UNSPECIFIED ATRIAL FIBRILLATION Status: Acute (4) UTI (urinary tract infection) Status: Acute (5) Acute respiratory failure with hypoxia Code(s): J96.01 - ACUTE RESPIRATORY FAILURE WITH HYPOXIA Status: Acute (6) Myocardial infarct Code(s): I21.9 - ACUTE MYOCARDIAL INFARCTION, UNSPECIFIED Status: Acute Qualifiers: Myocardial infarction type: type 2 Qualified Code(s): I21.A1 - Myocardial infarction type 2 (7) Ureterolithiasis Code(s): N20.1 - CALCULUS OF URETER Status: Acute (8) Infiltrate of lung present on chest x-ray Code(s): R91.8 - OTHER NONSPECIFIC ABNORMAL FINDING OF LUNG FIELD Status: Acute (9) COPD exacerbation Code(s): J44.1 - CHRONIC OBSTRUCTIVE PULMONARY DISEASE W (ACUTE) EXACERBATION Status: Acute (10) Atelectasis Status: Acute (11) Constipation Code(s): K59.00 - CONSTIPATION, UNSPECIFIED Status: Acute (12) Pneumonia Code(s): J18.9 - PNEUMONIA, UNSPECIFIED ORGANISM Status: Acute - Plan Difficult to differentiate between CHF and pneumonia. May have some chronic changes and atelectasis as well. Appreciate Pulm input. Changed abx to Vanc/Zosyn Added steroids. Continue scheduled and PRN nebs. Added IS for apparent atelectasis. Increase mobility. Renal US now shows much increased right hydronephrosis. CT shows migration of the stone to the distal ureter with proximal hydro. Apparently the plan was to stent this, but was awaiting cardiology clearance. Discussed with Dr. Cleary. Adding Tamsulosin. Repeat CT with migration of the stone, but persistent hydro. Remains asymptomatic. Will likely get addressed as OP. Diuresis intially ineffective. Increased Lasix to 60mg IV bid. Added Metolazone 5 mg po bid. Added Aldactone 25 mg po q day. Watch potassium closely. Cardiology following. Cath with no occlusive disease. Afib stable. Anticoagulation contraindicated due to hx of GIB. Will increase activity. Not much more that we can accomplish here. Will need to work toward some rehab.
[2019-04-26] MEDS: Metolazone 5 MG TAB PO SCH ×2 (04:58→12:59)
[2019-04-26] MEDS: Piperacillin/Tazobactam 3.375 GM in Sodium Chloride 0.9% 100 ML IVPB SCH ×3 (04:58→17:44)
[2019-04-26] MEDS: methylPREDNISolone Sod Succ 40 MG VIAL IVP SCH ×3 (04:58→17:44)
[2019-04-26] MEDS: Furosemide 40 MG/4 ML VIAL SLOW IVP SCH ×2 (05:57→13:00)
--- NOTE | 2019-04-26 07:21 | PRG ---
DATE OF SERVICE: 04/25/2019 CHIEF COMPLAINT: Right ureteral stone. SUBJECTIVE: No acute events overnight. She denies right flank pain, nausea, dysuria, hematuria, suprapubic pain. She continues to have shortness of breath. OBJECTIVE: VITAL SIGNS: Afebrile, heart rate and blood pressure stable, requiring 3 L nasal cannula, saturating between 87% and 95%. GENERAL: In no acute distress, conversant. CHEST: Symmetric chest expansion. ABDOMEN: Soft, nontender, nondistended. No flank tenderness, no suprapubic tenderness. SKIN: Warm and dry. NEUROLOGIC: Alert and oriented x3. PSYCHIATRIC: Normal mood and affect. LABORATORY DATA: Reviewed. Most recent white count is from the 22 of April, which was 6 at that time. Creatinine on April [address] scan from early on admission was reviewed, showing a distal 5 mm stone with significant hydronephrosis on the right side. ASSESSMENT AND PLAN: A 73-year-old female, currently admitted with congestive heart failure, found to have persistent right ureteral stone. The patient is known to me having been seen recently in my office. However, we have been unable to obtain clearance for to undergo intervention for her right ureteral stone. She was seen by the urologist on-call over the weekend, who had recommended intervention this week. I was alerted of her presence earlier today by her hospitalist. I spoke with the patient and she is anxious to have the stone removed, although she is asymptomatic at this time. Her discharge to rehab is planned for possibly as early as tomorrow. I will need to speak with her Cardiology and Pulmonology Teams and discuss if outpatient intervention can be planned. If that is the case, then she certainly can discharge with plans for ureteroscopy within the next couple of weeks. Job ID: [id number]
[2019-04-26] MEDS: Vancomycin HCl 1 GM in Premix Bag 1 BAG IVPB SCH ×3 (07:50→20:24)
[2019-04-26] MEDS: Magnesium Oxide 400 MG TAB PO SCH ×2 (07:51→20:25)
[2019-04-26] MEDS: Spironolactone 25 MG TAB PO SCH (07:51)
[2019-04-26] MEDS: Polyethylene Glycol 3350 17 GM Packet PO SCH (07:52)
--- NOTE | 2019-04-26 15:28 | PRG ---
DATE OF SERVICE: 04/26/2019 SUBJECTIVE: Melanie Umana is in distress. She is sitting up, reading the paper. OBJECTIVE: VITAL SIGNS: She is afebrile. Heart rate in the 60s, respiratory rate 18, oximetry is 92% to 94% on 4 L, blood pressure 114/57. coarse equal breath sounds. HEART: Regular rhythm. ABDOMEN: Soft. LABORATORY DATA: There is no new lab. IMPRESSION: Underlying chronic obstructive pulmonary disease with probable coexistent acquired pneumonia, clinic improving slowly. She lives alone and wants to go to a skilled unit for rehab. I suspect she will wean off oxygen once she is there. She tells me she has a breast cancer that needs to be dealt with by Dr. Elizalde, but she has not met Dr. Elizalde yet, and also has an issue with a kidney stone that . She has been seen by urologist locally. Once she has recovered from this event, then wants to deal with the kidney stone she tells me. is stable to go to a skilled unit in my opinion. Job ID: [id number]
[2019-04-26] MEDS: Tamsulosin HCl 0.4 MG CAP PO SCH (20:26)
[2019-04-27] MEDS: Piperacillin/Tazobactam 3.375 GM in Sodium Chloride 0.9% 100 ML IVPB SCH ×4 (00:30→17:39)
[2019-04-27] MEDS: methylPREDNISolone Sod Succ 40 MG VIAL IVP SCH ×4 (00:30→17:40)
[2019-04-27] MEDS: Metolazone 5 MG TAB PO SCH ×2 (05:24→13:26)
[2019-04-27] MEDS: Furosemide 40 MG/4 ML VIAL SLOW IVP SCH ×2 (05:25→13:27)
[2019-04-27 06:14] VITALS: BMI 31.0
[2019-04-27 08:43] LABS: Vancomycin, Trough 31.1 ug/mL
[2019-04-27 09:58] LABS: Anion Gap 18 mmol/L (10-20); BUN (Urea Nitrogen) 53 mg/dL (9.8-20.1); Calc. Creatinine Clearance 44 mL/min (70-130); Calcium 9.5 mg/dL (7.8-10.44); Carbon Dioxide 37 mmol/L (23-31); Chloride 87 mmol/L (98-107); Estimated GFR-MDRD 39; Glucose 403 mg/dL (83-110); Potassium 3.5 mmol/L (3.5-5.1); Sodium 138 mmol/L (136-145)
[2019-04-27] MEDS: Spironolactone 25 MG TAB PO SCH (10:14)
[2019-04-27] MEDS: Magnesium Oxide 400 MG TAB PO SCH (10:14)
[2019-04-27] MEDS: Polyethylene Glycol 3350 17 GM Packet PO SCH (10:15)
[2019-04-27] MEDS ORDERED: Vancomycin HCl 1 GM in Premix Bag 1 BAG IVPB SCH ×2 (10:30→21:00)
--- NOTE | 2019-04-27 16:11 | PDOC.HOSPP ---
- Subjective Subjective: Doing a little better. Walked down the lopez with PT and a walker today. - Objective Vital Signs & Weight: Vital Signs (12 hours) Temp Pulse Resp BP BP Pulse Ox 04/27/19 13:46 99 04/27/19 13:45 79 16 99 04/27/19 11:52 98.1 F 66 18 127/58 L 94 L 04/27/19 10:14 67 04/27/19 08:00 96.0 F L 67 16 149/63 H 96 04/27/19 07:58 92 L 04/27/19 07:56 67 20 92 L 04/27/19 04:00 97.3 F L 63 20 122/57 L 92 L Weight Admit Weight 154 lb Weight 164 lb 6.4 oz I&O: 04/26/19 04/27/19 04/28/19 06:59 06:59 06:59 Intake Total 1300 1750 360 Output Total 1200 700 Balance 100 1050 360 Result Diagrams: 04/22/19 04:46 04/27/19 09:21 Hospitalist ROS - Medication Medications: Active Medications Generic Name Dose Route Start Last Admin Trade Name Freq PRN Reason Stop Dose Admin Hydrocodone Bitart/Acetaminophen 1 tab 04/19/19 15:47 04/19/19 15:53 Agness 5/325 PO 1 tab Q6H PRN Administration Moderate to Severe Pain (4-10) Albuterol/Ipratropium 3 ml 04/19/19 01:00 04/27/19 13:45 Duoneb NEB 3 ml [id number] JASON Administration Cholecalciferol 1,000 units 04/19/19 09:00 04/27/19 10:14 Vitamin D3 PO 1,000 units DAILY JASON Administration Diltiazem HCl 120 mg 04/19/19 09:00 04/27/19 10:14 Cardizem Cd PO 120 mg DAILY JASON Administration Furosemide 60 mg 04/23/19 14:00 04/27/19 13:27 Lasix SLOW IVP 60 mg 0600,1400 JASON Administration Piperacillin Sod/Tazobactam 100 mls @ 200 mls/hr 04/22/19 12:00 04/27/19 12: 37 Sod 3.375 gm/ Sodium Chloride IVPB 100 mls Q6HR JASON Administration Lactulose 10 gm 04/24/19 21:00 04/27/19 10:15 Lactulose PO Not Given BID JASON Magnesium Oxide 400 mg 04/19/19 21:00 04/27/19 10:14 Magnesium Oxide PO 400 mg BID JASON Administration Melatonin 6 mg 04/18/19 22:50 04/20/19 21:29 Melatonin PO 6 mg HSPRN PRN Administration Insomnia Methylprednisolone Sodium Succinate 40 mg 04/21/19 12:00 04/27/19 12:39 Solu-Medrol IVP 40 mg Q6HR JASON Administration Metolazone 5 mg 04/23/19 13:30 04/27/19 13:26 Zaroxolyn PO 5 mg 0530,1330 JASON Administration Metoprolol Succinate 50 mg 04/19/19 09:00 04/27/19 10:13 Toprol Xl PO 50 mg DAILY JASON Administration Pantoprazole Sodium 40 mg 04/19/19 09:00 04/27/19 10:13 Protonix PO 40 mg DAILY JASON Administration Polyethylene Glycol 17 gm 04/19/19 09:00 04/27/19 10:15 Miralax PO Not Given DAILY JASON Sodium Chloride 10 ml 04/18/19 22:55 04/27/19 10:15 Flush - Normal Saline IVF 10 ml Q12HR PRN Administration Saline Flush Sodium Chloride 10 ml 04/18/19 22:55 04/27/19 13:27 Flush - Normal Saline IVF 10 ml PRN PRN Administration Saline Flush Spironolactone 25 mg 04/24/19 08:00 04/27/19 10:14 Aldactone PO 25 mg QAM-WM JASON Administration Tamsulosin HCl 0.4 mg 04/23/19 21:00 04/26/19 20:26 Flomax PO 0.4 mg HS JASON Administration - Exam General Appearance: NAD, awake alert Heart: RRR, irregular Respiratory: CTAB (Diminished), no wheezes, no rales Gastrointestinal: soft, non-tender, non-distended, normal bowel sounds, no palpable masses, no hepatomegaly, no splenomegaly, no bruit Musculoskeletal: normal tone, normal strength, no muscle wasting Psychiatric: normal affect, normal behavior, A&O x 3 Hosp A/P (1) CHF (congestive heart failure) Code(s): I50.9 - HEART FAILURE, UNSPECIFIED Status: Acute Qualifiers: Heart failure type: systolic Heart failure chronicity: acute on chronic Qualified Code(s): I50.23 - Acute on chronic systolic (congestive) heart failure (2) Alcoholic cirrhosis of liver Code(s): K70.30 - ALCOHOLIC CIRRHOSIS OF LIVER WITHOUT ASCITES Status: Acute (3) Atrial fibrillation Code(s): I48.91 - UNSPECIFIED ATRIAL FIBRILLATION Status: Acute (4) UTI (urinary tract infection) Status: Acute (5) Acute respiratory failure with hypoxia Code(s): J96.01 - ACUTE RESPIRATORY FAILURE WITH HYPOXIA Status: Acute (6) Myocardial infarct Code(s): I21.9 - ACUTE MYOCARDIAL INFARCTION, UNSPECIFIED Status: Acute Qualifiers: Myocardial infarction type: type 2 Qualified Code(s): I21.A1 - Myocardial infarction type 2 (7) Ureterolithiasis Code(s): N20.1 - CALCULUS OF URETER Status: Acute (8) Infiltrate of lung present on chest x-ray Code(s): R91.8 - OTHER NONSPECIFIC ABNORMAL FINDING OF LUNG FIELD Status: Acute (9) COPD exacerbation Code(s): J44.1 - CHRONIC OBSTRUCTIVE PULMONARY DISEASE W (ACUTE) EXACERBATION Status: Acute (10) Atelectasis Status: Acute (11) Constipation Code(s): K59.00 - CONSTIPATION, UNSPECIFIED Status: Acute (12) Pneumonia Code(s): J18.9 - PNEUMONIA, UNSPECIFIED ORGANISM Status: Acute - Plan Difficult to differentiate between CHF and pneumonia. May have some chronic changes and atelectasis as well. Appreciate Pulm input. Changed abx to Vanc/Zosyn Added steroids. Continue scheduled and PRN nebs. Added IS for apparent atelectasis. Increase mobility. Renal US now shows much increased right hydronephrosis. CT shows migration of the stone to the distal ureter with proximal hydro. Apparently the plan was to stent this, but was awaiting cardiology clearance. Discussed with Dr. Cleary. Adding Tamsulosin. Repeat CT with migration of the stone, but persistent hydro. Remains asymptomatic. Will likely get addressed as OP. Diuresis intially ineffective. Increased Lasix to 60mg IV bid. Added Metolazone 5 mg po bid. Added Aldactone 25 mg po q day. Watch potassium closely. Cardiology following. Cath with no occlusive disease. Afib stable. Anticoagulation contraindicated due to hx of GIB. Will increase activity. Not much more that we can accomplish here. Will need to work toward some rehab.
[2019-04-27 16:15] VITALS: BP 122/58; TEMP 97.8
--- NOTE | 2019-04-28 14:00 | DIS ---
DATE OF ADMISSION: 04/20/2019 DATE OF DISCHARGE: 04/27/2019 DISCHARGE DIAGNOSES: 1. Congestive heart failure exacerbation. 2. Pneumonia. 3. Obstructing right ureteral stone with right hydroureter and hydronephrosis. 4. Alcoholic cirrhosis. 5. Atrial fibrillation. 6. Urinary tract infection with Escherichia coli. 7. Acute hypoxic respiratory failure. 8. Non-ST elevation myocardial infarction, type 2. 9. Chronic obstructive pulmonary disease with exacerbation. 10. Atelectasis. 11. Constipation. HISTORY OF PRESENT ILLNESS: This patient is a 73-year-old female with a history of congestive heart failure, cirrhosis, and COPD, who presented to the hospital through the emergency department reporting some increased fluid retention, decreased urine output, and shortness of breath. She was initially felt to likely have some heart failure exacerbation. Chest x-ray did show patchy infiltrates concerning for multifocal pneumonia along with a kityocri-oh-asodt layering pleural effusion. BNP was slightly elevated at 245. The bilirubin was slightly elevated, consistent with her chronic liver disease. HOSPITAL COURSE: The patient was admitted to the hospital. She was initially given diuretics without having a significant initial response to the diuresis. She had subsequent addition of some metolazone and her urine output did start to increase. She reported that she had previously been diagnosed with right kidney stone and reviewing her records did reveal that she had a ureteral stone with some hydro, initially was evaluated by Dr. Cleary. Apparently, there were some plans for outpatient intervention; however, Dr. Zamarripa had recommended the patient that he evaluate her prior to any procedures, but it was not clear what his workup entailed. She was subsequently seen in consultation by Dr. Zamarripa who performed a heart catheterization revealing no significant occlusive disease. Echocardiogram showed a severely dilated left atrium, moderate aortic stenosis and EF of 55% to 60%. Given that and the minimal elevation of the BNP, he felt her issues were likely more pulmonary in nature. She was seen in consultation by Pulmonology, who felt the patient's infiltrates were more likely related to pulmonary edema and failure, although she was being treated with antibiotics and steroids throughout the course. Her kidney stone was reassessed by Urology who felt that the patient was able to have outpatient followup for this and that she was having no persistent pain and her creatinine had remained stable. She also initially had some constipation issues and was on lactulose from home, that dose was increased and she had very good results with that ultimately. The patient was improved with the diuresis and treatment with antibiotics and steroids. She was evaluated by Physical Therapy and was able to get up and ambulate down the [place]. She felt she might benefit from some rehab; but once evaluated by therapy, she appeared to have functional status that would preclude her getting placed with the therapy. Therefore, the patient was ambulated and qualified for home oxygen, which was arranged for her along with some home health and the patient was felt to be stable for discharge. The patient's I's and O's were not consistent with significant amount of diuresis, in fact it appears that the patient had a net positive. Her weight has fluctuated significantly, but on the day of discharge, labs did appear that she was slightly prerenal from the diuresis. PHYSICAL EXAMINATION: VITAL SIGNS: On the day of discharge, temperature was 97.8, pulse 58, respirations 12, O2 saturations 94% on 3 L nasal cannula. BP was 122/58. GENERAL: She was awake and alert. HEART: Irregular with a 2/6 murmur. LUNGS: Generally diminished. ABDOMEN: Soft, nontender, and nondistended. EXTREMITIES: With no edema. DISPOSITION: The patient is discharged home. ACTIVITY: As tolerated. DIET: She will be on a heart healthy diet. She will have home health and home physical therapy. DISCHARGE MEDICATIONS: She will continue with: 1. Aldactone 25 mg p.o. daily. 2. Tamsulosin 0.4 mg daily. 3. Doxycycline 100 mg b.i.d. 4. Albuterol 0.63 nebulizer q.6 hours p.r.n. 5. Lasix 40 mg daily as needed for edema, shortness of breath. 6. Omeprazole 40 mg daily. 7. Metoprolol 50 mg daily. 8. vitamins one p.o. daily. 9. Digoxin 0.25 daily. 10. Potassium 20 mEq daily. 11. Vitamin D3 of 1000 units daily. 12. Diltiazem XT 120 mg daily. 13. Xifaxan 550 mg daily. 14. Melatonin 5 mg at bedtime p.r.n. 15. Lactulose 10 mg b.i.d. p.r.n. FOLLOWUP: She is to follow up with Dr. Susan Sanches on 05/01 at 11:30 and she is to follow up with Dr. Zamarripa as well. TIME SPENT: Total time of discharge planning was 38 minutes. Job ID: [id number]
--- NOTE | 2019-04-28 22:13 | PQF ---
RIC MAYBERRY DAVID R MD [id number] [facility]-235 [id number] CLINICAL DOCUMENTATION CLARIFICATION FORM: POST DISCHARGE Addendum to original discharge summary date: ____ Late entry note date: __ DATE: 04/28/19 ATTN: Jimmie Shoemaker Please exercise your independent, professional judgment in responding to the clarification form. Clinical indicators are provided on the bottom of this form for your review Can you please further specify if Sepsis is ruled in or ruled out? Sepsis [ ] Ruled in diagnosis [ ] Continue to treat [ ] Resolved [x ] Ruled out diagnosis [ ] Cannot rule out diagnosis [ ] Other diagnosis [ ] Unable to determine In addition, please specify: Present on Admission (POA): [ ] Yes [ ] No [ ] Unable to determine For continuity of documentation, please document condition throughout progress notes and discharge summary. Thank You. CLINICAL INDICATORS - SIGNS / SYMPTOMS / LABS Consult 04/22 Dr. Lugo pg.3-Sepsis secondary to Urinary tract infection H and P10/31 pg.1- came in today due to notable swelling in her feet and noticing that she has not been urinating as frequent as usual. H and P pg.1- Lactic acid 2.4 H and P pg.1- a chest x ray was done demonstrating an enlarged heart with pulmonary vascular congestion and a right basal infiltrate Consult Dr. Shahid 04/22 pg.1- Urine culture grew E.coli, pansensitive Consult Dr. Lugo 04/22- abnormal chest Xray and pneumonia Consult Dr. Lugo 04/22- She apparently has E coli growing from his urine culture RISK FACTORS acute on chronic systolic CHF- PN 04/26 Dr. Perea alcoholic cirrhosis of the liver- PN 04/26 Dr. Perea UTI- PN 04/26 Dr. Perae Acute respiratory failure with hypoxia- PN 04/26 Dr. Perea Ureterolithiasis- PN 04/26 Dr. Perea COPD exacerbation- PN 04/26 Dr. Perea Pneumonia- PN 04/26 Dr. Perea 73 years old woman- H and P pg.1 TREATMENTS Chest X ray 04/18 Urine culture- Microbiology 04/18 Initiated antibiotics- H and P pg.2 Urology Consult 04/22- Dr. Shahid IV Fluids- MAR Renal ultrasound 04/21 (This form is maintained as a part of the permanent medical record) 2014 [employer]. All Rights Reserved [email or web address] [not provided] MTDD
== END 2019-04-27 18:25 | disposition home health service (06) | DRG 280 ==
LOC: ERS 12:33 → 2SW 16:01 → OBSVTOIN 04-20 14:42 → 2NO 04-21 20:03
PROVIDERS: ADMIT Internal Medicine; ATTEND Internal Medicine
PROC: 4A023N7 Measurement of Cardiac Sampling and Pressure, Left Heart, Percutaneous Approach (ICD-10-PCS; principal; 2019-04-24)
PROC: B2151ZZ Fluoroscopy of Left Heart using Low Osmolar Contrast (ICD-10-PCS; 2019-04-24)
PROC: B2111ZZ Fluoroscopy of Multiple Coronary Arteries using Low Osmolar Contrast (ICD-10-PCS; 2019-04-24)
DX: I11.0 Hypertensive heart disease with heart failure (principal); I21.A1 Myocardial infarction type 2; J96.01 Acute respiratory failure with hypoxia; J18.9 Pneumonia, unspecified organism; I48.19 Other persistent atrial fibrillation; N20.1 Calculus of ureter; J44.1 Chronic obstructive pulmonary disease with (acute) exacerbation; J98.11 Atelectasis; N13.6 Pyonephrosis; J44.0 Chronic obstructive pulmonary disease with (acute) lower respiratory infection; I25.10 Atherosclerotic heart disease of native coronary artery without angina pectoris; I50.23 Acute on chronic systolic (congestive) heart failure; K21.9 Gastro-esophageal reflux disease without esophagitis; K70.30 Alcoholic cirrhosis of liver without ascites; K59.09 Other constipation; K72.90 Hepatic failure, unspecified without coma; E83.42 Hypomagnesemia; F17.210 Nicotine dependence, cigarettes, uncomplicated; B96.20 Unspecified Escherichia coli [E. coli] as the cause of diseases classified elsewhere; I78.0 Hereditary hemorrhagic telangiectasia; Z79.02 Long term (current) use of antithrombotics/antiplatelets; Z79.51 Long term (current) use of inhaled steroids; Z79.899 Other long term (current) drug therapy; Z85.3 Personal history of malignant neoplasm of breast; Z86.711 Personal history of pulmonary embolism; Z86.718 Personal history of other venous thrombosis and embolism
CPT/HCPCS: 36415; 36416; 71045; 71046; 74176; 76770; 76942; 80048; 80053; 80202; 81003; 81015; 82553; 83605; 83735; 83880; 84484; 85025; 85610; 85730; 87077; 87086; 87186; 93005; 93306; 93458; 93798; 94640; 94760; 99152; C1769; J0456; J0696; J1644; J1940; J2001; J2250; J2543; J2920; J3010; J3370; J3490; J7050; J7620; Q9967

== ENCOUNTER 2019-05-19 17:44 | Inpatient (IN) | payer MEDICARE ==
[~2019-05-19 17:44] MED LIST: Iopamidol 370 76% 50 ML VIAL FS ONE
[2019-05-19 18:43] LABS: Hemoglobin 10.6 g/dL (12.0-16.0); Mean Corpuscular HGB CONC 33.7 g/dL (32.0-36.0); Mean Corpuscular Hemoglobin 33.2 pg (27.0-31.0); Mean Corpuscular Volume 98.2 fL (78.0-98.0); Mean Platelet Volume 8.3 fL (7.4-10.4); Platelet Count 90 thou/uL (130-400); RBC Distribution Width 17.4 % (11.5-14.5)
[2019-05-19 18:55] LABS: Bilirubin Small (Negative); Blood, Urine Large (Negative); Glucose, Urine (Dipstick) Negative (Negative); Leukocyte Small (Negative); Nitrite Negative (Negative); Protein, Urine (Dipstick) 100 mg/dL (Neg-Trace); Urobilinogen 0.2 mg/dL (Less than 2)
--- NOTE | 2019-05-19 18:56 | RAD ---
RADIOGRAPH CHEST 1 VIEW: DATE: 05/19/2019 TIME: 6:42 PM HISTORY: 73-year-old female with dyspnea and tachycardia COMPARISON: 05/01/2019 FINDINGS: Cardiomegaly. Dense opacification of lower half of right lung by pleural effusion and consolidation. This appears s lightly worse compared to prior study. Diffuse bilateral mixed interstitial and alveolar pulmonary densities. This appears slightly worse. T his apparent worsening may or may not be due to positional differences. No pneumothorax. IMPRESSION: 1. Moderate to large right pleural effusion, possibly worse than before. 2. Cardiomegaly 3. Diffuse bilateral mixed interstitial and alveolar pulmonary densities. This may represent pulmonar y edema or multifocal pneumonia. Edema is favored. This appears slightly worse than before. 4. The combination of findings may represent severe congestive heart failure.
[2019-05-19 18:57] LABS: ALT (SGPT) 23 U/L (8-55); AST (SGOT) 22 U/L (5-34); Albumin 2.9 g/dL (3.4-4.8); Alkaline Phosphatase 159 U/L (40-110); Anion Gap 12 mmol/L (10-20); BUN (Urea Nitrogen) 26 mg/dL (9.8-20.1); Bilirubin, Total 5.2 mg/dL (0.2-1.2); Calc. Creatinine Clearance 0 mL/min (70-130); Calcium 8.9 mg/dL (7.8-10.44); Carbon Dioxide 35 mmol/L (23-31); Chloride 90 mmol/L (98-107); Estimated GFR-MDRD 58; Globulin 2.8 g/dL (2.4-3.5); Glucose 261 mg/dL (83-110); Lipase 22 U/L (8-78); Magnesium 1.9 mg/dL (1.6-2.6); Potassium 4.9 mmol/L (3.5-5.1); Protein, Total 5.7 g/dL (6.0-8.3); Sodium 132 mmol/L (136-145)
[2019-05-19 18:57] LABS: Clarity Turbid (Clear)
[2019-05-19 18:58] LABS: Digoxin Less than 0.15 ng/mL (0.8-2.0)
[2019-05-19 19:01] LABS: Anisocytosis SLIGHT = 6-15 cells (100X) (0-5/hpf); Band 3 % (5-11); Lymphocytes 1 % (21-51); MDiff Complete? YES; Monocytes 3 % (0-10); Neutrophil 93 % (42-75); Ovalocytes SLIGHT = 2-5 cells (100X) (0-1/hpf); Platelet Morphology Comment Appears Decreased; Polychromasia SLIGHT = 2-3 cells (100X) (0-2/hpf); Schistocytes SLIGHT = 2-5 cells (100X) (0-1/hpf); Target Cells SLIGHT = 2-5 cells (100X) (0-1/hpf); White Blood Cell (WBC) Count 7.8 thou/uL (4.8-10.8)
[2019-05-19 19:02] LABS: RBC/HPF Greater than 50 HPF (0-3); Squamous Epithelial 0-3 HPF (0-3); WBC/HPF 21-50 HPF (0-3)
[2019-05-19 19:03] LABS: Bacteria/HPF None Seen HPF (None Seen); Yeast-Budding Rare HPF (None Seen)
[2019-05-19 19:36] LABS: INR-International Normal Ratio 1.6; PTT 32.2 SEC (22.9-36.1); Prothrombin Time 18.9 SEC (12.0-14.7)
[2019-05-19 20:00] LABS: CKMB 1.2 ng/mL (0-6.6)
[2019-05-19] MEDS ORDERED: Cefepime 2 GM VIAL ONE (20:00)
[2019-05-19] MEDS ORDERED: Azithromycin 500 MG VIAL ONE (20:00)
[2019-05-19] MEDS ORDERED: Diltiazem 125 MG/25 ML ONE (20:00)
--- NOTE | 2019-05-19 20:12 | CT ---
CT ABDOMEN WITH CONTRAST CT PELVIS WITH CONTRAST: DATE: 05/19/2019 HISTORY: 73-year-old female with abdominal pain. Incarcerated umbilical hernia. COMPARISON: 04/22/2019 TECHNIQUE: IV injection of iodinated contrast media: administered. Oral contrast media:Not administered FINDINGS: Anasarca. Small bilateral pleural effusions. Right lower lobe consolidation could represent atelectas is, less likely pneumonia. Multifocal patchy infiltrates in bilateral lower lung zones could represent pulmonary edema or multifocal pneumonia. These are similar to prior CTA. Nodular margins of liver. IVC filter. With the benefit of IV contrast, severely dilated numerous vari jose are now recognized within the right side of the peritoneal cavity, with connections to dilated superior mesenteric vein and very severely dilated right ovarian vein. These varices and dilated vein s were thought to represent bowel loops on the noncontrast previous CT. New right-sided ureteral stent. Lower pigtail loop in the right side of bladder lumen. Upper pigtail loop within the dilated extrarenal pelvis. This dilation has dramatically improved since the prior CT. The previously demonstrated severe dilation of right renal calyces has also improved, and is now mild. Mild dilation of contralateral left renal upper pole calyces, unchanged. No splenomegaly. Interval increase in volume of free fluid around the liver and spleen, now moderate. New free fluid t hroughout the mesentery and bilateral paracolic gutters. Moderate amount of free fluid within the pelvic cavity, including cul-de-sac and superior to the bladder. No small bowel dilation. Difficult t o evaluate for colonic diverticulitis because of all the free fluid. Difficult to evaluate pancreas. No gross pancreatic abnormality. No adrenal nodule. Fat-containing umbilical hernia measure s 4 x 4 x 3 cm. There is fluid within this umbilical hernia, which is nonspecific because of the presence of ascites and severe anasarca. Multiple calcified gallstones. Mural thickening and mural ed zaria of the gallbladder without excessive luminal distention. This can be due to the liver disease and ascites, and does not necessarily imply acute cholecystitis, and this is similar to prior CT. 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 2) cirrhosis. 3) interval worsening of ascites, now small-moderate in volume. 4) interval worsening of anasarca. 5) interval improvement in the previously demonstrated severe right hydronephrosis upon placement of right ureteral stent. 6) cholelithiasis. 7) fat-containing umbilical hernia
[2019-05-19] MEDS ORDERED: Diltiazem HCl 125 MG, Admixture Fee 1 EACH in Sodium Chloride 0.9% 100 ML IVPB SCH (20:15)
[2019-05-19] MEDS ORDERED: Furosemide 40 MG/4 ML VIAL ONE (20:20)
[2019-05-19] MEDS ORDERED: Senokot S 8.6-50 MG TAB PO PRN (21:50)
[2019-05-19] MEDS ORDERED: Melatonin 3 MG TAB PO PRN (21:57)
[2019-05-19 22:32] LABS: Troponin I 0.045 ng/mL (< 0.028)
[2019-05-19] MEDS ORDERED: Ipratropium Bromide 2.5 ml Neb NEB PRN (23:02)
[2019-05-19] MEDS ORDERED: Digoxin 0.25 MG TAB PO SCH (23:15)
[2019-05-20] MEDS: cefTRIAXone\\ROCEPHIN 1 GM in Sodium Chloride 0.9% 100 ML IVPB SCH (00:36)
[2019-05-20] MEDS: Ipratropium Bromide 2.5 ml Neb NEB SCH ×4 (01:00→19:42)
[2019-05-20 01:15] LABS: Troponin I 0.017 ng/mL (< 0.028)
[2019-05-20 05:23] LABS: Anion Gap 10 mmol/L (10-20); BUN (Urea Nitrogen) 25 mg/dL (9.8-20.1); Calc. Creatinine Clearance 0 mL/min (70-130); Calcium 8.4 mg/dL (7.8-10.44); Carbon Dioxide 35 mmol/L (23-31); Chloride 92 mmol/L (98-107); Estimated GFR-MDRD 70; Glucose 199 mg/dL (83-110); Sodium 132 mmol/L (136-145)
[2019-05-20 05:31] LABS: Band 7 % (5-11); Elliptocytes SLIGHT = 2-5 cells (100X) (0-1/hpf); Hemoglobin 10.1 g/dL (12.0-16.0); Lymphocytes 2 % (21-51); MDiff Complete? YES; Mean Corpuscular HGB CONC 32.1 g/dL (32.0-36.0); Mean Corpuscular Hemoglobin 31.7 pg (27.0-31.0); Mean Corpuscular Volume 98.9 fL (78.0-98.0); Mean Platelet Volume 7.8 fL (7.4-10.4); Monocytes 12 % (0-10); Neutrophil 79 % (42-75); Platelet Count 96 thou/uL (130-400); Platelet Morphology Comment Appears Decreased; Polychromasia SLIGHT = 2-3 cells (100X) (0-2/hpf); RBC Distribution Width 17.4 % (11.5-14.5); Red Blood Cell (RBC) Count 3.19 mill/uL (4.20-5.40); Target Cells SLIGHT = 2-5 cells (100X) (0-1/hpf); White Blood Cell (WBC) Count 8.3 thou/uL (4.8-10.8)
[2019-05-20] MEDS: Budesonide 0.5 MG/2 ML NEB NEB SCH ×2 (06:55→19:42)
[2019-05-20] MEDS: Rifaximin 550 MG TAB PO SCH (08:12)
[2019-05-20] MEDS: Spironolactone 100 MG TAB PO SCH (08:12)
[2019-05-20] MEDS: Multivit, Therapeutic 1 TAB PO SCH (08:12)
[2019-05-20] MEDS: Enoxaparin Sodium 40 MG/0.4 ML SYRINGE SC SCH (08:13)
[2019-05-20] MEDS ORDERED: Diltiazem 125 MG in Sodium Chloride 0.9% 100 ML IVPB SCH (12:15)
--- NOTE | 2019-05-20 13:09 | PDOC.HOSPP ---
- Subjective Encounter Date: 05/20/19 Encounter Time: 09:00 Subjective: Feels better, still SOB. - Objective Vital Signs & Weight: Vital Signs (12 hours) Temp Pulse Resp BP Pulse Ox 05/20/19 11:38 97.8 F 113 H 14 112/57 L 100 05/20/19 11:34 94 L 05/20/19 11:27 113 H 22 H 95 05/20/19 07:21 97.2 F L 111 H 20 104/53 L 95 05/20/19 06:55 106 H 22 H 97 05/20/19 03:50 97.3 F L 120 H 20 118/56 L 95 Weight Weight 162 lb 6.4 oz I&O: 05/19/19 05/20/19 05/21/19 06:59 06:59 06:59 Intake Total 600 Output Total 100 Balance 500 Result Diagrams: 05/20/19 04:56 05/20/19 04:56 Hospitalist ROS - Medication Medications: Active Medications Generic Name Dose Route Start Last Admin Trade Name Freq PRN Reason Stop Dose Admin Budesonide 0.5 mg 05/20/19 06:30 05/20/19 06:55 Pulmicort Neb Solution NEB 0.5 mg BID-RT JASON Administration Cholecalciferol 1,000 units 05/20/19 09:00 05/20/19 08:12 Vitamin D3 PO 1,000 units DAILY JASON Administration Enoxaparin Sodium 40 mg 05/20/19 09:00 05/20/19 08:13 Lovenox SC Not Given 0900 JASON Ceftriaxone Sodium 1 gm/ 100 mls @ 200 mls/hr 05/19/19 23:59 05/20/19 00:36 Sodium Chloride IVPB 100 mls Q24HR JASON Administration Diltiazem HCl 125 mg/ Sodium 125 mls @ 5 mls/hr 05/20/19 12:15 05/20/19 12:55 Chloride IVPB 125 mls INF JASON Administration 5 MG/HR Ipratropium [place] 2.5 ml 05/20/19 01:00 05/20/19 11:27 Atrovent NEB 2.5 ml [id number] JASON Administration Lactulose 10 gm 05/20/19 09:00 05/20/19 08:14 Lactulose PO 10 gm BID JASON Administration Multivitamins 1 tab 05/20/19 09:00 05/20/19 08:12 Theragran PO 1 tab DAILY JASON Administration Pantoprazole Sodium 40 mg 05/20/19 09:00 05/20/19 08:14 Protonix PO 40 mg DAILY JASON Administration Rifaximin 550 mg 05/20/19 09:00 05/20/19 08:12 Xifaxan PO 550 mg DAILY JASON Administration Spironolactone 100 mg 05/20/19 08:00 05/20/19 08:12 Aldactone PO 100 mg QAM-WM JASON Administration - Exam General Appearance: NAD Neck: no JVD Heart: irregular Respiratory: rhonchi Respiratory - other findings: Decreased air entry at bases. Gastrointestinal: distended (+Shifting dullness.) Extremities: 2+ LE edema Neurological: no weakness Hosp A/P (1) Pneumonia Code(s): J18.9 - PNEUMONIA, UNSPECIFIED ORGANISM Status: Acute Plan: On antibiotics.. (2) Acute and chronic respiratory failure with hypoxia Code(s): J96.21 - ACUTE AND CHRONIC RESPIRATORY FAILURE WITH HYPOXIA Status: Acute (3) Alcoholic cirrhosis of liver Code(s): K70.30 - ALCOHOLIC CIRRHOSIS OF LIVER WITHOUT ASCITES Status: Acute (4) Atrial fibrillation Code(s): I48.91 - UNSPECIFIED ATRIAL FIBRILLATION Status: Acute Plan: On cardiazem drip.. (5) CHF (congestive heart failure) Code(s): I50.9 - HEART FAILURE, UNSPECIFIED Status: Acute Plan: Most likely due to Atrial fib with RVR.. - Plan Continue antibiotics, Cardiazem drip... Start Po Lopressor.
[2019-05-20] MEDS ORDERED: FLU VACC TS2019-20(65YR UP)/PF 180 MCG/0.5 ML SYRINGE IM ONE (21:00)
[2019-05-20] MEDS ORDERED: Prevnar 13-Val Conj/PF 0.5 ML SYRINGE IM ONE (21:00)
[2019-05-20] MEDS: Tamsulosin HCl 0.4 MG CAP PO SCH (21:04)
[2019-05-20] MEDS: Metoprolol Tartrate 25 MG TAB PO SCH (21:04)
[2019-05-20] MEDS ORDERED: Lorazepam 2 MG/ML VIAL SLOW IVP PRN (22:00)
[2019-05-21] MEDS: Ipratropium Bromide 2.5 ml Neb NEB SCH (01:00)
[2019-05-21] MEDS ORDERED: Furosemide 40 MG/4 ML VIAL ONE (01:20)
[2019-05-21 01:41] LABS: Actual Bicarbonate (HCO3a) 31.3 mEq/L (22-28); Base Excess (BEa) 4.7 mEq/L (-2.0 to +3.0); CO2 Tension 56.4 mmHg (35.0-45.0); Calcium, Ionized 1.17 mmol/L (1.12-1.30); Carboxyhemoglobin (COHb) 1.7 gm% (0.0-3.0); O2 Tension (PaO2) 103.8 mmHg (> 70.0); Potassium - ABG Lab 4.88 mmol/L (3.70-5.30); pH, Arterial 7.36 (7.35-7.45)
[2019-05-21 01:42] LABS: Puncture Site L RADIAL
[2019-05-21] MEDS: cefTRIAXone\\ROCEPHIN 1 GM in Sodium Chloride 0.9% 100 ML IVPB SCH (01:56)
[2019-05-21] MEDS: Budesonide 0.5 MG/2 ML NEB NEB SCH ×2 (07:18→18:50)
[2019-05-21] MEDS: Spironolactone 100 MG TAB PO SCH (08:32)
[2019-05-21] MEDS: Rifaximin 550 MG TAB PO SCH (08:33)
[2019-05-21] MEDS: Metoprolol Tartrate 25 MG TAB PO SCH ×3 (08:33→21:13)
[2019-05-21] MEDS: Multivit, Therapeutic 1 TAB PO SCH (08:33)
[2019-05-21] MEDS: Enoxaparin Sodium 40 MG/0.4 ML SYRINGE SC SCH (08:34)
--- NOTE | 2019-05-21 08:50 | RAD ---
CHEST 1 VIEW: INDICATION: Respiratory distress. COMPARISON: Prior exam dated 05/19/2019. FINDINGS: There is worsening pulmonary vascular congestion and perihilar edema. Large right and small left ple ural effusions persist. No pneumothorax is evident. Chronic osseous changes are stable. IMPRESSION: Worsening congestive heart failure. POS: BH
--- NOTE | 2019-05-21 09:15 | PDOC.HOSPP ---
- Subjective Encounter Date: 05/21/19 Encounter Time: 09:13 Subjective: alert,comfortable.code green last PM for low O2 sat - Objective Vital Signs & Weight: Vital Signs (12 hours) Temp Temp Pulse Pulse Pulse Pulse Pulse 05/21/19 07:18 92 05/21/19 07:15 96.3 F L 92 05/21/19 04:00 109 H 05/21/19 02:46 98.0 F 92 05/21/19 01:49 106 H 05/21/19 01:27 99 05/21/19 01:09 97 100 96 05/20/19 23:38 92 Pulse Pulse Pulse Pulse Pulse Resp Resp 05/21/19 07:18 22 H 05/21/19 07:15 13 05/21/19 04:00 05/21/19 02:46 34 H 05/21/19 01:49 24 H 05/21/19 01:27 26 H 05/21/19 01:09 101 H 97 100 102 H 107 H 05/20/19 23:38 24 H Resp Resp Resp Resp Resp Resp Resp 05/21/19 07:18 05/21/19 07:15 05/21/19 04:00 05/21/19 02:46 05/21/19 01:49 05/21/19 01:27 05/21/19 01:09 32 H 36 H 24 H 36 H 24 H 24 H 20 05/20/19 23:38 Resp BP BP BP BP BP BP 05/21/19 07:18 05/21/19 07:15 05/21/19 04:00 05/21/19 02:46 100/60 05/21/19 01:49 05/21/19 01:27 05/21/19 01:09 24 H 109/59 L 120/53 L 105/63 108/59 L 101/62 05/20/19 23:38 BP BP BP BP Pulse Ox Pulse Ox Pulse Ox 05/21/19 07:18 94 L 05/21/19 07:15 104/55 L 94 L 05/21/19 04:00 102/46 L 05/21/19 02:46 80 L 05/21/19 01:49 94 L 05/21/19 01:27 92 L 05/21/19 01:09 100/60 105/58 L 107/56 L 88 L 05/20/19 23:38 98 Pulse Ox Pulse Ox Pulse Ox Pulse Ox Pulse Ox Pulse Ox Pulse Ox 05/21/19 07:18 05/21/19 07:15 05/21/19 04:00 05/21/19 02:46 05/21/19 01:49 05/21/19 01:27 05/21/19 01:09 91 L 91 L 90 L 100 100 94 L 92 L 05/20/19 23:38 Weight Admit Weight 162 lb Weight 168 lb I&O: 05/20/19 05/21/19 05/22/19 06:59 06:59 06:59 Intake Total 600 1300 Output Total 100 600 Balance 500 700 Result Diagrams: 05/20/19 04:56 05/20/19 04:56 Radiology Reviewed by me: Yes (cxr-large R pleural effusion with adverse bilat infiltrates) Hospitalist ROS - Medication Medications: Active Medications Generic Name Dose Route Start Last Admin Trade Name Freq PRN Reason Stop Dose Admin Albuterol/Ipratropium 3 ml 05/21/19 02:30 05/21/19 07:25 Duoneb NEB 3 ml [id number] JASON Administration Budesonide 0.5 mg 05/20/19 06:30 05/21/19 07:18 Pulmicort Neb Solution NEB 0.5 mg BID-RT JASON Administration Cholecalciferol 1,000 units 05/20/19 09:00 05/21/19 08:32 Vitamin D3 PO 1,000 units DAILY JASON Administration Enoxaparin Sodium 40 mg 05/20/19 09:00 05/21/19 08:34 Lovenox SC Not Given 09 JASON Ceftriaxone Sodium 1 gm/ 100 mls @ 200 mls/hr 05/19/19 23:59 05/21/19 01:56 Sodium Chloride IVPB 100 mls Q24HR JASON Administration Diltiazem HCl 125 mg/ Sodium 125 mls @ 5 mls/hr 05/20/19 12:15 05/20/19 12:55 Chloride IVPB 125 mls INF JASON Administration 5 MG/HR Ipratropium [place] 2.5 ml 05/19/19 23:02 05/20/19 23:38 Atrovent NEB 2.5 ml [id number] PRN Administration SOB &/or Wheezing Lactulose 10 gm 05/20/19 09:00 05/21/19 08:33 Lactulose PO 10 gm BID JASON Administration Metoprolol Tartrate 25 mg 05/20/19 21:00 05/21/19 08:33 Lopressor PO 25 mg BID JASON Administration Multivitamins 1 tab 05/20/19 09:00 05/21/19 08:33 Theragran PO 1 tab DAILY JASON Administration Pantoprazole Sodium 40 mg 05/20/19 09:00 05/21/19 08:33 Protonix PO 40 mg DAILY JASON Administration Rifaximin 550 mg 05/20/19 09:00 05/21/19 08:33 Xifaxan PO 550 mg DAILY JASON Administration Sodium Chloride 10 ml 05/20/19 21:00 05/21/19 08:34 Flush - Normal Saline IVF 10 ml Q12HR JASON Administration Spironolactone 100 mg 05/20/19 08:00 05/21/19 08:32 Aldactone PO 100 mg QAM-WM JASON Administration Tamsulosin HCl 0.4 mg 05/20/19 21:00 05/20/19 21:04 Flomax PO 0.4 mg HS JASON Administration - Exam General Appearance: awake alert Neck: JVD Heart: RRR, no murmur Respiratory - other findings: dull R chest with decreased BS, diffuse coarse BS with rhonchi Gastrointestinal: soft, non-tender, normal bowel sounds Extremities: 1+ LE edema Hosp A/P (1) Acute respiratory failure with hypoxemia Code(s): J96.01 - ACUTE RESPIRATORY FAILURE WITH HYPOXIA Status: Acute (2) Pleural effusion Code(s): J90 - PLEURAL EFFUSION, NOT ELSEWHERE CLASSIFIED Status: Acute (3) Aortic stenosis Code(s): I35.0 - NONRHEUMATIC AORTIC (VALVE) STENOSIS Status: Chronic Qualifiers: Cardiac valve disease etiology: etiology unspecified Qualified Code(s): I35.0 - Nonrheumatic aortic (valve) stenosis (4) Atrial fibrillation Code(s): I48.91 - UNSPECIFIED ATRIAL FIBRILLATION Status: Acute Qualifiers: Atrial fibrillation type: unspecified Qualified Code(s): I48.91 - Unspecified atrial fibrillation (5) COPD exacerbation Code(s): J44.1 - CHRONIC OBSTRUCTIVE PULMONARY DISEASE W (ACUTE) EXACERBATION Status: Chronic (6) Pneumonia Code(s): J18.9 - PNEUMONIA, UNSPECIFIED ORGANISM Status: Acute Qualifiers: Pneumonia type: due to unspecified organism Laterality: bilateral Lung location: unspecified part of lung Qualified Code(s): J18.9 - Pneumonia, unspecified organism - Plan cont current care cardiology and pulmonology consult
--- NOTE | 2019-05-21 11:49 | CT ---
CT chestwithout contrast INDICATIONS:Shortness of breath. Pleural effusion. COMPARISON:CT chest 10/10/2017 FINDINGS: There is cardiomegaly with vascular congestion. Interstitial edema superimposed on chronic lung disea se. There are patchy areas of alveolar densities seen throughout both lungs, most likely representing areas of alveolar edema. Small bilateral pleural effusions, slightly larger on the right . Mediastinum is unremarkable. No adenopathy. Images through upper abdomen reveal a nodular appearing liver. Subcutaneous edema seen in the subcutaneous tissues of the chest. Osseous structures are unremarkable. IMPRESSION: Cardiomegaly with vascular congestion. Interstitial and patchy areas of alveolar opacity which could represent edema or infiltrate. Bilateral effusions, larger on the right. Dense right lung basilar atelectasis/consolidation.
[2019-05-21] MEDS ORDERED: Iopamidol-370 76% 500 ML 1 ML ONE (13:28)
--- NOTE | 2019-05-21 14:39 | CON ---
DATE OF CONSULTATION: 05/21/2019 CONSULT REQUESTING PHYSICIAN: Dr. Meng. REASON FOR CONSULTATION: Abnormal chest x-ray. This encompassed 50 minutes of time, of that time, greater than 50% was spent with the patient and/or the patient's unit in the hospital. HISTORY OF THE PRESENT ILLNESS: This is a 73-year-old female, who was readmitted to the hospital on 05/19. At the time of this dictation, history and physical is not on the chart. The patient is a fairly poor historian. From what I can gather, she was at the [facility] for rehabilitation from previous hospitalization. She started complaining of shortness of breath and a high heart rate. She was brought back to the ER, where she was found to have bilateral patchy infiltrates on x-ray as well as atrial fibrillation with rapid ventricular response. She has been treated with a Cardizem drip and some diuretics. She was also put on ceftriaxone for antibiotic coverage. She does not feel like that she has improved very much. 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 She underwent a CT scan today, which showed bilateral small effusions. The pleural fluid on the right tracks into the right major and minor fissures, which makes the x-ray appears somewhat worse than it is. Most of her infiltrative changes are bilateral alveolar in nature. PAST MEDICAL HISTORY: 1. Chronic obstructive pulmonary disease. 2. Atrial fibrillation. 3. Breast cancer. 4. Congestive heart failure. 5. Hepatic encephalopathy. 6. Cirrhosis. 7. Pulmonary embolism with IVC filter placement. 8. Deep venous thrombosis. 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 PAST SURGICAL HISTORY: 1. Tonsillectomy and adenoidectomy. 2. Ovarian wedge resection. 3. Cardiac catheterization. 4. Electrical cardioversion. SOCIAL HISTORY: In early April when I saw her, she was smoking 2 to 3 cigarettes a day, right now she is not smoking. She was living fully independently prior to her hospitalization in April. She does not consume any alcohol. MEDICATIONS: Both of her inpatient and outpatient medication list were reviewed and listed in the [place] section of the chart. Of note, as far as diuretics are concerned, she is currently on spironolactone. Additionally, she is receiving ceftriaxone, DuoNeb, and budesonide. REVIEW OF SYSTEMS: Remarkable for poor appetite, some difficulty swallowing, orthopnea, paroxysmal dyspnea. No hemoptysis, melena, hematochezia, hematuria, or dysuria. In the past, she has ascites that has required paracentesis. PHYSICAL EXAMINATION: VITAL SIGNS: Temperature is 97.4, pulse 95, respirations 18, O2 saturation 93% on 4 L. GENERAL: She is an elderly female, who appears older than her stated age and looks chronically ill. HEENT: Pupils reactive. Sclerae anicteric. Oropharynx is clear. NECK: No adenopathy or JVD. CARDIAC: S1, S2. Irregularly irregular, but rate is controlled. LUNGS: She has diminished breath sounds in both bases. She has crackles best heard anteriorly and bilaterally. ABDOMEN: Somewhat distended. She has an inverted umbilicus with fluid present. EXTREMITIES: No clubbing or cyanosis. She has 1+ edema throughout. LABORATORY DATA: Sodium 132, potassium 5, chloride 92, CO2 of 35, BUN 25, creatinine 0.8 and glucose 199. Her albumin is 2.9, lipase 22. White blood cell count 8.3, hematocrit 31.5, and platelet count 96. INR is 1.6. Urinalysis showed 21 to 50 white blood cells. ASSESSMENT: This is a 73-year-old female, who is presenting with a chronically abnormal chest x-ray. She has bilateral small effusions, which I think are probably present due to congestive heart failure and/or protein calorie malnutrition with hypoalbuminemia. I do not see anything on her CT scan that looks like a mass. RECOMMENDATION: 1. Control of atrial fibrillation as much as possible. 2. I would recommend continuing diuresis. She may need Lasix on top of the spironolactone. I do not suspect that she has anything that would necessitate a bronchoscopy at this time. Job ID: [id number]
--- NOTE | 2019-05-21 17:38 | PDOC.EVN ---
Event Note - Event Note Event Note: CT chdst reviewed, appreciate Dr Diaz input
[2019-05-21] MEDS ORDERED: Furosemide 40 MG/4 ML VIAL SLOW IVP SCH (17:45)
[2019-05-21] MEDS: Tamsulosin HCl 0.4 MG CAP PO SCH (21:09)
[2019-05-22] MEDS: Furosemide 40 MG/4 ML VIAL SLOW IVP SCH ×2 (05:10→14:18)
[2019-05-22] MEDS: Budesonide 0.5 MG/2 ML NEB NEB SCH ×2 (07:23→18:33)
[2019-05-22] MEDS: Multivit, Therapeutic 1 TAB PO SCH (08:27)
[2019-05-22] MEDS: Spironolactone 100 MG TAB PO SCH (08:27)
[2019-05-22] MEDS: Rifaximin 550 MG TAB PO SCH (08:27)
[2019-05-22] MEDS: Metoprolol Tartrate 25 MG TAB PO SCH (08:27)
[2019-05-22] MEDS: Enoxaparin Sodium 40 MG/0.4 ML SYRINGE SC SCH (08:28)
--- NOTE | 2019-05-22 08:46 | HP ---
CHIEF COMPLAINT: Shortness of breath and palpitations. HISTORY OF PRESENT ILLNESS: Patient is a 73-year-old female with past medical history of cryptogenic cirrhosis diagnosed about 8 to 9 years ago, has a history of hereditary hemorrhagic telangiectasia, AFib, and osteoporosis who presents to the hospital with complaints of shortness of breath and generalized weakness. Patient stated that she was feeling well yesterday. However, today, she started having some shortness of breath and felt her heart rate to be very significantly elevated. Patient lives in [facility] and is able to ambulate normally, however, felt that her heart was beating really fast today. She denies not taking her medications. Patient is currently not on any anticoagulation since she has a history of nosebleeds. She denies any fevers or chills recently. Denies any chest tightness. Denies any nausea, vomiting, or diarrhea. PAST MEDICAL HISTORY: Patient's past medical history is as of the followin. She has history of atrial fibrillation, not on any anticoagulation. 2. She has had a history of reflux. She has also has a history of cryptogenic cirrhosis. 3. She also has a history of hydronephrosis and ureteral stone, status post extraction and a stent placement. She also has a history of hereditary hemorrhagic telangiectasia. PAST SURGICAL HISTORY: She has had a tonsillectomy, right foot surgery, left hip surgery, ovarian surgery but not oophorectomy. SOCIAL HISTORY: She currently lives in [place]. She is a full code. I did talk with her about code status. She was a former smoker. She currently does not smoke anymore. Denies any alcohol use or drug use. ALLERGIES: SHE IS ALLERGIC TO SULFA AND IBUPROFEN. MEDICATIONS: As of the following. She is on; 1. Aldactone 25 mg daily. 2. Tamsulosin 0.4 daily. 3. Lasix 40 mg as needed. 4. Metoprolol 50 mg daily. 5. Digoxin 0.125 daily. 6. vitamin 1 p.o. daily. 7. She is on rifaximin 550 mg p.o. daily. 8. Diltiazem 120 mg daily. 9. Melatonin 10 mg daily. 10. Lactulose b.i.d. REVIEW OF SYSTEMS: All negative, except for the ones mentioned above in the HPI. FAMILY HISTORY: No history of heart disease or strokes. PHYSICAL EXAMINATION: VITAL SIGNS: As of the following; temperature of 98.8, heart rate of 115, 94% on room air, and 112/52. GENERAL: She is awake, alert, and oriented x3. Does not appear to be in any distress. HEENT: Normocephalic and atraumatic. No lymphadenopathy noted. Pupils are equal and reactive to light. She appears little bit dehydrated upon physical examination. CV: S1, S2 present. Irregularly irregular. LUNGS: She has some mild expiratory wheezing all over. ABDOMEN: Soft. She has umbilical hernia. Bowel sounds are present x2. No pain upon palpation. EXTREMITIES: No edema. Pedal pulses are present x2. NEUROVASCULAR: There are no focal deficits noted. SKIN: No cuts, lesions, or bruises noted. She does have some spider angioma around her neck area. LABORATORY RESULTS: As of the following; WBCs of 7.8, hemoglobin of 10.6, hematocrit of 31.4, and platelets are 90. Chemistry; sodium of 132, potassium of 4.9, BUN of 26, creatinine 0.95, glucose is 261. Her bilirubin is 5.2. Her troponin is 0.045. Her BNP is 112.6. Her TSH is 1.3. She did have an abdominal CT and a chest x-ray. Her abdominal CT indicated she does have a filter. 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 She has cirrhosis. She has interval worsening of ascites and worsening of anasarca. She does have severe right hydronephrosis, but she does have a right ureteral stent. She has a fat-containing umbilical hernia. ASSESSMENT AND PLAN: Patient is a 73-year-old female who presents to the hospital with complaints of palpitations. 1. Atrial fibrillation with rapid ventricular response. Patient has been started on a Cardizem drip. We will continue that. Her digoxin level was low at 0.15. I will go ahead and give her another dose of her digoxin. Patient's last echocardiogram was last month, which indicated an EF of 55 to 60%, severely dilated left atrium. May consider getting Cardiology for further evaluation and better heart rate control. She is currently unable to be anticoagulated given her history of nosebleeds. 2. Worsening ascites. She may benefit from a paracentesis. We will continue her diuretics for now and continue to monitor her. 3. Shortness of breath. This could be a combination of her being in atrial fibrillation with rapid ventricular response and also with mild pleural effusion that is noted on her CT. Her CT does indicate multifocal patchy infiltrates. However, she denies any cough and patient does not really have significant white count. She denies any recent fevers. However, I will start her on some antibiotics just for preventative reasons. Mildly elevated troponins, trending her troponins. She has always had a little bit. This could be some demand ischemia from her atrial fibrillation with rapid ventricular response. Her heart rate was in the 120s to 130s. I will continue to trend that and continue to monitor. 4. Deep venous thrombosis prophylaxis. We will put the patient on some SCDs since she is a high risk for nosebleeds. 5. Cirrhosis. We will continue rifaximin and lactulose. As I mentioned, she might require paracentesis and analysis of her fluid. Job ID: [id number]
--- NOTE | 2019-05-22 09:32 | PDOC.HOSPP ---
- Subjective Encounter Date: 05/22/19 Encounter Time: 09:30 Subjective: i need to get riid of this fluid in my belly - Objective Vital Signs & Weight: Vital Signs (12 hours) Temp Pulse Resp BP Pulse Ox 05/22/19 07:38 97.4 F L 104 H 24 H 97/65 99 05/22/19 04:00 97.6 F 116 H 22 H 98/56 L 92 L 05/22/19 02:33 72 22 H 98 05/22/19 00:00 104 H 20 103/54 L 05/21/19 22:50 67 20 99 Weight Admit Weight 162 lb Weight 162 lb 7 oz I&O: 05/21/19 05/22/19 05/23/19 06:59 06:59 06:59 Intake Total 1300 1095 Output Total 600 210 Balance 700 885 Result Diagrams: 05/20/19 04:56 05/20/19 04:56 Hospitalist ROS - Medication Medications: Active Medications Generic Name Dose Route Start Last Admin Trade Name Freq PRN Reason Stop Dose Admin Albuterol/Ipratropium 3 ml 05/21/19 02:30 05/22/19 07:24 Duoneb NEB 3 ml [id number] JASON Administration Budesonide 0.5 mg 05/20/19 06:30 05/22/19 07:23 Pulmicort Neb Solution NEB 0.5 mg BID-RT JASON Administration Cholecalciferol 1,000 units 05/20/19 09:00 05/22/19 08:27 Vitamin D3 PO 1,000 units DAILY JASON Administration Enoxaparin Sodium 40 mg 05/20/19 09:00 05/22/19 08:28 Lovenox SC Not Given 0900 JASON Furosemide 40 mg 05/22/19 06:00 05/22/19 05:10 Lasix SLOW IVP 40 mg 0600,1400 JASON Administration Ceftriaxone Sodium 1 gm/ 100 mls @ 200 mls/hr 05/19/19 23:59 05/22/19 00:00 Sodium Chloride IVPB 100 mls Q24HR JASON Administration Ipratropium [place] 2.5 ml 05/19/19 23:02 05/20/19 23:38 Atrovent NEB 2.5 ml [id number] PRN Administration SOB &/or Wheezing Lactulose 10 gm 05/20/19 09:00 05/22/19 08:27 Lactulose PO 10 gm BID JASON Administration Metoprolol Tartrate 25 mg 05/20/19 21:00 05/22/19 08:27 Lopressor PO Not Given BID JASON Multivitamins 1 tab 05/20/19 09:00 05/22/19 08:27 Theragran PO 1 tab DAILY JASON Administration Pantoprazole Sodium 40 mg 05/20/19 09:00 05/22/19 08:27 Protonix PO 40 mg DAILY JASON Administration Rifaximin 550 mg 05/20/19 09:00 05/22/19 08:27 Xifaxan PO 550 mg DAILY JASON Administration Sodium Chloride 10 ml 05/20/19 21:00 05/22/19 08:43 Flush - Normal Saline IVF 10 ml Q12HR JASON Administration Spironolactone 100 mg 05/20/19 08:00 05/22/19 08:27 Aldactone PO 100 mg QAM-WM JASON Administration Tamsulosin HCl 0.4 mg 05/20/19 21:00 05/21/19 21:09 Flomax PO 0.4 mg HS JASON Administration - Exam General Appearance: awake alert Neck: no JVD Heart: irregular, II/IV Respiratory - other findings: coarse BS,rhonchi Gastrointestinal: soft, normal bowel sounds, distended Gastrointestinal - other findings: pos fluid wave Extremities: 1+ LE edema Hosp A/P (1) Acute respiratory failure with hypoxemia Code(s): J96.01 - ACUTE RESPIRATORY FAILURE WITH HYPOXIA Status: Acute (2) Pleural effusion Code(s): J90 - PLEURAL EFFUSION, NOT ELSEWHERE CLASSIFIED Status: Acute (3) Aortic stenosis Code(s): I35.0 - NONRHEUMATIC AORTIC (VALVE) STENOSIS Status: Chronic Qualifiers: Cardiac valve disease etiology: etiology unspecified Qualified Code(s): I35.0 - Nonrheumatic aortic (valve) stenosis (4) Atrial fibrillation Code(s): I48.91 - UNSPECIFIED ATRIAL FIBRILLATION Status: Acute Qualifiers: Atrial fibrillation type: unspecified Qualified Code(s): I48.91 - Unspecified atrial fibrillation (5) COPD exacerbation Code(s): J44.1 - CHRONIC OBSTRUCTIVE PULMONARY DISEASE W (ACUTE) EXACERBATION Status: Chronic (6) Pneumonia Code(s): J18.9 - PNEUMONIA, UNSPECIFIED ORGANISM Status: Acute Qualifiers: Pneumonia type: due to unspecified organism Laterality: bilateral Lung location: unspecified part of lung Qualified Code(s): J18.9 - Pneumonia, unspecified organism - Plan nopos diuresiswithiv lasix mild tachycardia- reinstitute po cardizem, cont metoprolol cont ivantibx consult cardiology,GI
--- NOTE | 2019-05-22 10:03 | PRG ---
DATE OF SERVICE: 05/22/2019 SUBJECTIVE: The patient is complaining of abdominal distention. OBJECTIVE: VITAL SIGNS: Temperature 97.4, pulse 112, respirations 23, and O2 saturation 95% on 4 L. HEENT: Unremarkable. NECK: No JVD. LUNGS: Slightly diminished breath sounds at both bases. CARDIAC: S1 and S2, regular. ABDOMEN: Slightly distended. Some ascites present. EXTREMITIES: Trace edema. LABORATORY DATA: No new labs were done today. ASSESSMENT: 1. Diastolic heart dysfunction. 2. Cirrhosis of the liver. 3. Atrial fibrillation. PLAN: Judicious use of diuretics. Discussed with Dr. Meng. Job ID: [id number]
[2019-05-22] MEDS ORDERED: Metoprolol Tartrate 25 MG TAB PO SCH ×2 (10:15→21:00)
[2019-05-22] MEDS ORDERED: Digoxin 0.5 MG/2 ML AMP SLOW IVP SCH ×2 (13:45→20:00)
--- NOTE | 2019-05-22 15:24 | PQF ---
RIC MAYBERRYTELLO GORMAN [id number] CLINICAL DOCUMENTATION IMPROVEMENT CLARIFICATION FORM: ICD-10 Updated PLEASE DO AN ADDENDUM TO THE PROGRESS NOTE WITH ANY DOCUMENTATION UPDATES OR ADDITIONS AND CARRY THROUGH TO DC SUMMARY. THANK YOU. DATE: 05/22/2019 ATTN: DR MUÑOZ Please exercise your independent, professional judgment in responding to the clarification form. Clinical indicators are provided on the bottom of this form for your review Please check appropriate box(s) to clarify if the following diagnosis has been ruled in or ruled out: ACUTE ON CHRONIC DIASTOLIC HEART FAILURE [ ] Ruled in diagnosis [ ] Continue to treat [ ] Resolved [ ] Ruled out diagnosis [ x] Cannot rule out diagnosis [ ] Other diagnosis [ ] Unable to determine In addition, please specify: Present on Admission (POA): [ ] Yes [ ] No [ ] Unable to determine For continuity of documentation, please document condition throughout progress notes and discharge summary. Thank You. CLINICAL INDICATORS - SIGNS / SYMPTOMS / LABS / RESULTS AND LOCATION IN MR SHORTNESS OF BREATH - 05/19 H&P ELEVATED BNP - 05/19 PER LAB - 112.6 CXR - PLEURAL EFFUSION - 05/19 REPORT WORSENING ASCITES, ANASARCA - 05/19 H&P EF 55-60% - 05/19 H&P RISK FACTORS / RESULTS AND LOCATION IN MR CIRHOSIS - 05/19 H&P AFIB WITH RVR - 05/19 H&P TREATMENTS / RESULTS AND LOCATION IN MR SPIRONOLATONE - 10 MG PO - W/M - 05/19 ORDERS LASIX IV 40 MG IV X1 - 12/1 PER ORDERS LASIX IV 40 MG 0600, 1400 - 12/2 PER ORDERS (This form is maintained as a part of the permanent medical record) 2014 [employer] All Rights Reserved [email or web address] [not provided] [email or web address]
[2019-05-22] MEDS: Tamsulosin HCl 0.4 MG CAP PO SCH (19:49)
[2019-05-22] MEDS: cefTRIAXone\\ROCEPHIN 1 GM in Sodium Chloride 0.9% 100 ML IVPB SCH ×2 (23:44)
--- NOTE | 2019-05-23 04:25 | CON ---
DATE OF CONSULTATION: 05/22/2019 CHIEF COMPLAINT: Shortness of breath. HISTORY OF PRESENT ILLNESS: Ms. Umana is a 73-year-old woman, who was admitted with shortness of breath and atrial fibrillation with rapid ventricular response. She has a history of underlying alcoholic cirrhosis and has also developed symptomatic ascites go along with that. She complains of abdominal distention with fluid in her abdomen and trouble breathing with fluid around her lungs. She states she does not add salt to her food. She has had no diarrhea, constipation, or visible blood in the stool. She had endoscopy back in 2010, that was negative for varices. She had a CT scan on 05/19/2019, that showed large intraperitoneal varices around the superior mesenteric vein to the right ovarian vein. CT showed nodularity of the liver and ascites with small to moderate volume, primarily around the liver. Cholelithiasis was also noted. She has received diuresis here in the hospital and states that she is breathing better. PAST MEDICAL HISTORY: Hereditary hemorrhagic telangiectasia. Alcoholic cirrhosis of the liver. Congestive heart failure. Atrial fibrillation. Ureteral stone, status post extraction and stent placement last month. PAST SURGICAL HISTORY: Tonsillectomy, foot surgery, hip surgery, EGD, and colonoscopy. Last colonoscopy was over 10 years ago from what I can tell and it was negative. Recent ureteral stent. FAMILY HISTORY: Negative for GI malignancy. SOCIAL HISTORY: She previously drank rum and Coke daily. She quit that years ago. No drugs or alcohol currently. She quit smoking years ago. ALLERGIES: SULFA AND IBUPROFEN. OUTPATIENT MEDICATIONS: 1. Aldactone. 2. Tamsulosin. 3. Lasix. 4. Metoprolol. 5. Digoxin. 6. vitamin. 7. Rifaximin. 8. Diltiazem. 9. Melatonin. 10. Lactulose. REVIEW OF SYSTEMS: Negative x10 systems reviewed, except as stated in the history of present illness. PHYSICAL EXAMINATION: VITAL SIGNS: Temperature 98.0, pulse 83, and blood pressure 99/53. GENERAL: She is in no acute distress. Alert and oriented x3. HEENT: Eyes have no scleral icterus. She has telangiectasias on inner nose and tongue per prior report; however, I do not see obvious telangiectasias on her tongue currently. LUNGS: Have crackles bilaterally in the lower lung huang. HEART: Regular rate and rhythm with 2/6 systolic murmur at the left lower sternal border. EXTREMITIES: No lower extremity edema. NEURO: Cranial nerves are grossly intact. LABORATORY DATA: White blood cell count 8.3, hemoglobin 10.1, and platelets 96,000. INR 1.6. Creatinine 0.8. Bilirubin 5.2, AST 22, ALT 23, alkaline phosphatase 159, and albumin 2.9. IMPRESSION: 1. Cirrhosis of the liver secondary to past alcohol. She has been off alcohol for years. She does have signs of decompensation with elevated bilirubin at 5.2 and elevated INR of 1.6. She also has ascites. She is on Xifaxan for hepatic encephalopathy. 2. Ascites. She is not tense currently. She has [id number] ascites, primarily around the liver. She has significant abdominal varices. We will plan to hold off paracentesis for now and continue with diuresis as primary treatment. 3. Hereditary hemorrhagic telangiectasia. 4. Congestive heart failure. RECOMMENDATIONS: 1. We will continue to titrate the diuretics. She is currently on spironolactone 100 mg daily and furosemide 40 mg IV twice daily. 2. Low-salt diet. 3. Rifaximin 550 mg two times daily for prevention of hepatic encephalopathy. 4. We will continue to follow trend of her liver tests. Job ID: [id number]
[2019-05-23] MEDS: Furosemide 40 MG/4 ML VIAL SLOW IVP SCH ×2 (05:43→14:39)
[2019-05-23] MEDS: Budesonide 0.5 MG/2 ML NEB NEB SCH ×2 (07:15→19:10)
--- NOTE | 2019-05-23 07:24 | CON ---
DATE OF CONSULTATION: HISTORY OF PRESENT ILLNESS: Melanie Umana is a 73-year-old white female, who was first evaluated by Dr. Zamarripa in August 2017 in the office for new-onset atrial fibrillation. Most recent evaluation in the office in March 2019 revealed an echo ejection fraction 55% to 60% with severely dilated left atrium, mild aortic regurgitation, mild aortic stenosis, mild mitral regurgitation, moderate tricuspid regurgitation. She also underwent cardiac PET scan, which was negative for detection of ischemia or scar. However, she did have an elevated TID of 1.26. (It is of note in March 2002, she underwent cardiac catheterization by Dr. Díaz and was found to have a 40% first diagonal, which was a small vessel and 20% proximal right coronary artery stenosis). She has had multiple admissions over the last month. During the admission on April 20, she underwent cardiac catheterization. This revealed 30% mid LAD stenosis. She is discharged and readmitted 3 days later with hypoxia. She was found to be severely bradycardic with heart rate in the 50s while on metoprolol, diltiazem, and digoxin. During that admission, metoprolol and digoxin were discontinued and she has had placed on Cardizem 30 mg every 4 hours. She now is admitted with increased dyspnea on exertion as well as feeling of a rapid heartbeat. She has been found to have heart rates in the 120s and 130s. She does have CHADS-VASc score of greater than 2. However, has declined anticoagulation on multiple occasions. She denies any chest discomfort. PAST MEDICAL HISTORY: Chronic atrial fibrillation; hydronephrosis and ureteral stone, status post extraction; hereditary telangiectasia; COPD; cryptogenic cirrhosis. CURRENT MEDICATIONS: 1. Torsemide 20 mg q.a.m. 2. Albuterol inhaler. 3. Pulmicort inhaler b.i.d. 4. Cardizem 30 mg q.8 hours. 5. Ferrous sulfate 325 daily. 6. DuoNeb q.4 hours p.r.n. 7. Lactulose b.i.d. 8. Melatonin 5 mg q.h.s. 9. Nystatin topically b.i.d. 10. Omeprazole 40 daily. 11. Xifaxan 550 daily. 12. Spironolactone 100 mg q.a.m. 13. Flomax 0.4 q.h.s. ALLERGIES: SULFA AND IBUPROFEN. SOCIAL HISTORY: She lives at [place]. She smoked in the past. She does not drink alcohol. FAMILY HISTORY: Unremarkable. REVIEW OF SYSTEMS: A 10-point review of systems is otherwise unremarkable except as noted above. PHYSICAL EXAMINATION: VITAL SIGNS: Blood pressure 101/55, pulse 72. HEENT: PERRL. NECK: Supple. CHEST: Reveals bilateral crackles and expiratory wheezing. CARDIOVASCULAR: S1 and S2 normal without any S3, S4, or murmurs. ABDOMEN: Normal bowel sounds without tenderness or organomegaly. EXTREMITIES: Reveal 1 to 2+ pretibial edema. NEUROLOGIC: Grossly intact. SKIN: Warm and dry. LABORATORY DATA: EKG reveals atrial fibrillation with rapid ventricular response of 128 per minute, poor R wave progression. Hemoglobin 10.1, hematocrit 31.5, white count 8300, platelets 96,000. PT 18.9, INR 1.6. PH 7.36, pCO2 of 56.4, pO2 of 103.8. Sodium 132, potassium 5.0, chloride 92, carbon dioxide 35, BUN 25, creatinine 0.8, glucose 199. Troponin I 0.045. BNP 112.6. Abdominal and pelvis CT revealed severely dilated varices on the right paramedian aspect of the peritoneal cavity, cirrhosis, interval worsening of ascites, anasarca, severe right hydronephrosis, cholelithiasis, umbilical hernia. IMPRESSION: 1. Chronic obstructive pulmonary disease with hypoxemia. 2. Atrial fibrillation with uncontrolled rate. During her last admission, she was bradycardic, and was on digoxin, metoprolol, and diltiazem. She was discharged just on the diltiazem and at the present time is tachycardic. I will resume the digoxin with IV loading doses. 3. History of cryptogenic cirrhosis with worsening ascites. Job ID: [id number] [facility]
[2019-05-23] MEDS: Digoxin 0.125 MG TAB PO SCH (09:09)
[2019-05-23] MEDS: Rifaximin 550 MG TAB PO SCH ×2 (09:10→20:20)
[2019-05-23] MEDS: Multivit, Therapeutic 1 TAB PO SCH (09:10)
[2019-05-23] MEDS: Spironolactone 100 MG TAB PO SCH (09:19)
[2019-05-23] MEDS: Enoxaparin Sodium 40 MG/0.4 ML SYRINGE SC SCH (09:56)
--- NOTE | 2019-05-23 10:27 | PDOC.HOSPP ---
- Subjective Encounter Date: 05/23/19 Encounter Time: 10:25 Subjective: no specific complaints - Objective Vital Signs & Weight: Vital Signs (12 hours) Temp Pulse Resp BP Pulse Ox 05/23/19 09:09 79 05/23/19 07:53 98.2 F 84 18 93/51 L 92 L 05/23/19 07:15 80 16 05/23/19 03:07 97.7 F 78 14 86/46 L 97 05/23/19 02:41 76 20 94 L 05/22/19 23:27 98.6 F 77 14 88/49 L 96 05/22/19 23:05 63 20 90 L Weight Admit Weight 162 lb Weight 166 lb I&O: 05/22/19 05/23/19 05/24/19 06:59 06:59 06:59 Intake Total 1095 1080 Output Total 210 1100 Balance 885 -20 Result Diagrams: 05/20/19 04:56 05/20/19 04:56 Additional Labs: Accuchecks 05/22/19 20:40 POC Glucose 300 H Hospitalist ROS - Medication Medications: Active Medications Generic Name Dose Route Start Last Admin Trade Name Freq PRN Reason Stop Dose Admin Albuterol/Ipratropium 3 ml 05/21/19 02:30 05/23/19 07:15 Duoneb NEB 3 ml [id number] JASON Administration Budesonide 0.5 mg 05/20/19 06:30 05/23/19 07:15 Pulmicort Neb Solution NEB 0.5 mg BID-RT JASON Administration Cholecalciferol 1,000 units 05/20/19 09:00 05/23/19 09:09 Vitamin D3 PO 1,000 units DAILY JASON Administration Digoxin 0.125 mg 05/23/19 09:00 05/23/19 09:09 Lanoxin PO 0.125 mg DAILY JASON Administration Diltiazem HCl 30 mg 05/22/19 14:00 05/23/19 05:43 Cardizem PO 30 mg Q8HR JASON Administration Enoxaparin Sodium 40 mg 05/20/19 09:00 05/23/19 09:56 Lovenox SC 40 mg 0900 JASON Administration Furosemide 40 mg 05/22/19 06:00 05/23/19 05:43 Lasix SLOW IVP 40 mg 0600,1400 JASON Administration Ceftriaxone Sodium 1 gm/ 100 mls @ 200 mls/hr 05/19/19 23:59 05/22/19 23:44 Sodium Chloride IVPB 100 mls Q24HR JASON Administration Ipratropium [place] 2.5 ml 05/19/19 23:02 05/20/19 23:38 Atrovent NEB 2.5 ml [id number] PRN Administration SOB &/or Wheezing Lactulose 10 gm 05/20/19 09:00 05/23/19 09:09 Lactulose PO 10 gm BID JASON Administration Multivitamins 1 tab 05/20/19 09:00 05/23/19 09:10 Theragran PO 1 tab DAILY JASON Administration Pantoprazole Sodium 40 mg 05/20/19 09:00 05/23/19 09:10 Protonix PO 40 mg DAILY JASON Administration Rifaximin 550 mg 05/23/19 09:00 05/23/19 09:10 Xifaxan PO 550 mg BID JASON Administration Sodium Chloride 10 ml 05/20/19 21:00 05/23/19 09:20 Flush - Normal Saline IVF 10 ml Q12HR JASON Administration Spironolactone 100 mg 05/20/19 08:00 05/23/19 09:19 Aldactone PO Not Given QA- JASON Tamsulosin HCl 0.4 mg 05/20/19 21:00 05/22/19 19:49 Flomax PO 0.4 mg HS JASON Administration - Exam General Appearance: awake alert Neck: no JVD Heart: no murmur, irregular Respiratory - other findings: coarse breth sounds, dull R base Gastrointestinal: soft, normal bowel sounds Gastrointestinal - other findings: subjectively decreased distention Extremities: no edema Hosp A/P (1) Acute respiratory failure with hypoxemia Code(s): J96.01 - ACUTE RESPIRATORY FAILURE WITH HYPOXIA Status: Acute (2) Pleural effusion Code(s): J90 - PLEURAL EFFUSION, NOT ELSEWHERE CLASSIFIED Status: Acute (3) Aortic stenosis Code(s): I35.0 - NONRHEUMATIC AORTIC (VALVE) STENOSIS Status: Chronic Qualifiers: Cardiac valve disease etiology: etiology unspecified Qualified Code(s): I35.0 - Nonrheumatic aortic (valve) stenosis (4) Atrial fibrillation Code(s): I48.91 - UNSPECIFIED ATRIAL FIBRILLATION Status: Acute Qualifiers: Atrial fibrillation type: unspecified Qualified Code(s): I48.91 - Unspecified atrial fibrillation (5) COPD exacerbation Code(s): J44.1 - CHRONIC OBSTRUCTIVE PULMONARY DISEASE W (ACUTE) EXACERBATION Status: Chronic (6) Pneumonia Code(s): J18.9 - PNEUMONIA, UNSPECIFIED ORGANISM Status: Acute Qualifiers: Pneumonia type: due to unspecified organism Laterality: bilateral Lung location: unspecified part of lung Qualified Code(s): J18.9 - Pneumonia, unspecified organism - Plan cont po spironolactone, iv lasix cont metoprolol, cardizem, digoxin - AF rate controlled cont nebs, etc for COPD
--- NOTE | 2019-05-23 13:07 | PRG ---
DATE OF SERVICE: 05/23/2019 SUBJECTIVE: Ms. Umana has no complaints. Her main complaint is feeling weak. OBJECTIVE: VITAL SIGNS: She is afebrile. Heart rate is 79, respiratory rate 18, oximetry is 96% on 2-1/2 L. LUNGS: Clear anteriorly. HEART: Regular rhythm. ABDOMEN: Soft. EXTREMITIES: Without edema. IMPRESSION: 1. Diastolic heart failure. 2. Cirrhosis. 3. Atrial fibrillation. PLAN: Continue with her current supportive care. She will need physical therapy. She may need placement in a skilled unit. She also has hereditary hemorrhagic telangiectasia, which is not a clinical issue at this point in time. Her pleural effusion is likely related to her aortic stenosis, atrial fibrillation, diastolic dysfunction. She is not having any clinical COPD issues at this point in time. Job ID: [id number]
--- NOTE | 2019-05-23 14:47 | PDOC.EVN ---
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
[2019-05-23] MEDS: Tamsulosin HCl 0.4 MG CAP PO SCH (20:20)
[2019-05-24] MEDS: cefTRIAXone\\ROCEPHIN 1 GM in Sodium Chloride 0.9% 100 ML IVPB SCH (00:08)
[2019-05-24] MEDS ORDERED: Furosemide 40 MG/4 ML VIAL ONE (06:13)
[2019-05-24] MEDS: Budesonide 0.5 MG/2 ML NEB NEB SCH ×2 (08:10→18:24)
[2019-05-24] MEDS: Digoxin 0.125 MG TAB PO SCH ×2 (09:41→13:26)
[2019-05-24] MEDS: Enoxaparin Sodium 40 MG/0.4 ML SYRINGE SC SCH ×2 (09:41→13:26)
[2019-05-24] MEDS: Rifaximin 550 MG TAB PO SCH ×3 (09:41→21:04)
[2019-05-24] MEDS: Multivit, Therapeutic 1 TAB PO SCH ×2 (09:41→13:27)
[2019-05-24] MEDS: Furosemide 40 MG/4 ML VIAL SLOW IVP SCH ×2 (13:25→13:37)
[2019-05-24] MEDS: Spironolactone 100 MG TAB PO SCH (13:26)
--- NOTE | 2019-05-24 14:12 | PDOC.PALCO ---
Palliative Care Consult - Consult Details Requesting Physician: Dr Meng Reason for Consult: goals of care, symptom management Family Members Present: None - Pertinent HPI 71 year old female who resides at [facility]. Patient discharges recently and was having shortness of breath and elevated heart rate on 05/19. EMS was called and patient was transferred to the emergency room for evaluation. There was not associated chest pain or discomfort, abdominal pain, nausea, vomiting, headache, dizziness. No relieving factors. Evaluation in the emergency room caused for admission for management of atrial fib, ascites, shortness of breath that could be related to atrial fib, pleural effusion noted or patchy infiltrates noted on lungs from CT exam. Patient has had multiple admissions recently secondary to chronic conditions and continued disease trajectory. - Pertinent PMH Atrial fib, GERD, hydronephrosis with ureteral stone, hemorrhagic telangiectasia , Diastolic Heart Failure, Cirrhosis - Social History Smoking Status: Former smoker Alcohol Use: none Drug Use History: none Living Situation: [facility] ([place]) - Medications MAR Reviewed: Yes - Allergies Allergies/Adverse Reactions: Allergies Allergy/AdvReac Type Severity Reaction Status Date / Time Sulfa (Sulfonamide Allergy Verified 05/01/19 11:06 Antibiotics) ibuprofen AdvReac Nausea Verified 04/18/19 20:51 - Subjective short of breath, denies pain but mild abdominal tenderness. - ROS Constitutional: weakness (Intermittant cough) Respiratory: dry cough, shortness of breath with extertion Gastrointestinal: stomach discomfort Psychological: anxiety - Objective Vital Signs: Vital Signs - Most Recent Temp Pulse Resp BP Pulse Ox 97.9 F 87 18 99/48 L 96 05/23/19 20:15 05/24/19 13:57 05/24/19 13:57 05/23/19 23:35 05/24/19 13:57 Palliative Performance Scale: 50 - Physical Exam Constitutional: mild distress HEENT: EOMI, moist MMs Respiratory: labored respirations Deviation from normal: mild wheeze noted Cardiovascular: irregular Gastrointestinal: positive bowel sounds Deviation from normal: umbilical hernia, tympani on percussion to ab Musculoskeletal: no clubbing, pulses present Neurology: moves all 4 limbs Psychiatric: A&O x 3 Deviation from normal: anxious - Problem List (1) Palliative care encounter Code(s): Z51.5 - ENCOUNTER FOR PALLIATIVE CARE Current Visit: Yes Status: Acute (2) Pleural effusion Code(s): J90 - PLEURAL EFFUSION, NOT ELSEWHERE CLASSIFIED Current Visit: Yes Status: Acute (3) Aortic stenosis Code(s): I35.0 - NONRHEUMATIC AORTIC (VALVE) STENOSIS Current Visit: Yes Status: Chronic Qualifiers: Cardiac valve disease etiology: etiology unspecified Qualified Code(s): I35.0 - Nonrheumatic aortic (valve) stenosis (4) CHF (congestive heart failure) Code(s): I50.9 - HEART FAILURE, UNSPECIFIED Current Visit: No Status: Acute Qualifiers: (5) COPD exacerbation Code(s): J44.1 - CHRONIC OBSTRUCTIVE PULMONARY DISEASE W (ACUTE) EXACERBATION Current Visit: No Status: Chronic - Plan/Recommendations Plan: Obtained history from patient. Noted to be short of breath with minimal exertion. States that with meals she has pronounced shortness of breath. Mild abdominal discomfort. States that she gets anxious at [facility] when she gets short of breath. Patient has one son that lives in [place]. *Speech consult to assist with safe eating techniques related to breathlessness *Jonna Cm RNspectacle truer to reach out to Car[facility]aker to identify if patient has a possibility for hospice and [facility] care? Consideration may be given to management of symptoms rather than treatment at the hospital. *Possible rehab to gain strength Palliative Care initiated communication with patient and will follow up to discuss goals of care in relation to chronic disease processes 05/25. *Will revisit resuscitation status with patient [60] minutes spent on this encounter with >50% of the time in counseling and coordination of care. Thank you for this very appropriate consult.
[2019-05-24 15:27] LABS: ALT (SGPT) 25 U/L (8-55); AST (SGOT) 29 U/L (5-34); Albumin 2.6 g/dL (3.4-4.8); Alkaline Phosphatase 150 U/L (40-110); Anion Gap 9 mmol/L (10-20); BUN (Urea Nitrogen) 34 mg/dL (9.8-20.1); Bilirubin, Total 3.5 mg/dL (0.2-1.2); Calc. Creatinine Clearance 60 mL/min (70-130); Carbon Dioxide 35 mmol/L (23-31); Chloride 90 mmol/L (98-107); Estimated GFR-MDRD 55; Globulin 3.1 g/dL (2.4-3.5); Potassium 5.3 mmol/L (3.5-5.1); Protein, Total 5.7 g/dL (6.0-8.3)
[2019-05-24 15:42] LABS: Glucose 187 mg/dL (83-110); Sodium 129 mmol/L (136-145)
[2019-05-24 17:09] LABS: Hemoglobin 9.8 g/dL (12.0-16.0); Mean Corpuscular HGB CONC 31.8 g/dL (32.0-36.0); Mean Corpuscular Hemoglobin 31.5 pg (27.0-31.0); Mean Corpuscular Volume 98.9 fL (78.0-98.0); Mean Platelet Volume 7.9 fL (7.4-10.4); Platelet Count 90 thou/uL (130-400); RBC Distribution Width 17.4 % (11.5-14.5); White Blood Cell (WBC) Count 6.9 thou/uL (4.8-10.8)
[2019-05-24 17:10] LABS: Band 3 % (5-11); Hypochromia SLIGHT = 6-15 cells (100X) (0-5/hpf); Lymphocytes 3 % (21-51); MDiff Complete? YES; Monocytes 14 % (0-10); Neutrophil 80 % (42-75); Polychromasia SLIGHT = 2-3 cells (100X) (0-2/hpf)
[2019-05-24 17:11] LABS: Target Cells SLIGHT = 2-5 cells (100X) (0-1/hpf)
[2019-05-24 17:12] LABS: INR-International Normal Ratio 1.5
[2019-05-24 17:13] LABS: PTT 36.6 SEC (22.9-36.1)
--- NOTE | 2019-05-24 17:49 | PDOC.EVN ---
Event Note - Event Note Event Note: neg
[2019-05-24] MEDS: Tamsulosin HCl 0.4 MG CAP PO SCH (21:04)
[2019-05-24] MEDS: Cefuroxime Axetil 250 MG TAB PO SCH (21:04)
--- NOTE | 2019-05-24 21:23 | PRG ---
DATE OF SERVICE: 05/24/2019 SUBJECTIVE: Ms. Umana says she is feeling a little bit better. She has no complaints. OBJECTIVE: VITAL SIGNS: She is afebrile. Heart rate is 91, respiratory rate is 20, oximetry is 97% on 4 L cannula. LUNGS: Remarkable for end-expiratory wheezes. HEART: Regular rhythm. ABDOMEN: Soft. LABORATORY DATA: White count 6.9, hemoglobin 9.8, platelets 90,000. Sodium 129, potassium 5.3, chloride 90, bicarb 35, BUN 34, creatinine 0.98. IMPRESSION: 1. Diastolic heart failure. 2. Cirrhosis. 3. Atrial fibrillation. 4. Chronic thrombocytopenia secondary to her liver dysfunction. 5. Chronic obstructive pulmonary disease. She has some faint wheezes, but isn't complaining of shortness of breath at this time. 6. Atrial fibrillation. 7. History of breast cancer. 8. History of an inferior vena cava filter. 9. [id number]. PLAN: 1. Continue current supportive care. 2. Her cultures are negative. Her antimicrobial therapy could probably be converted to p.o. antimicrobial therapy. Job ID: [id number]
[2019-05-25] MEDS: Furosemide 40 MG/4 ML VIAL SLOW IVP SCH ×2 (06:02→15:15)
[2019-05-25] MEDS: Budesonide 0.5 MG/2 ML NEB NEB SCH ×2 (07:35→18:40)
[2019-05-25] MEDS: Digoxin 0.125 MG TAB PO SCH (08:44)
[2019-05-25] MEDS: Rifaximin 550 MG TAB PO SCH ×2 (08:45→20:52)
[2019-05-25] MEDS: Multivit, Therapeutic 1 TAB PO SCH (08:45)
[2019-05-25] MEDS: Enoxaparin Sodium 40 MG/0.4 ML SYRINGE SC SCH (08:45)
[2019-05-25] MEDS: Cefuroxime Axetil 250 MG TAB PO SCH ×2 (08:45→20:52)
[2019-05-25] MEDS: Spironolactone 100 MG TAB PO SCH (12:47)
--- NOTE | 2019-05-25 16:05 | PDOC.PALPN ---
Palliative Progress Note - Subjective Awake, alert, generalized weakness, shortness of breath with exertion - Objective Vital Signs: Vital Signs - Most Recent Temp Pulse Resp BP Pulse Ox 97.8 F 95 22 H 102/50 L 93 L 05/25/19 15:24 05/25/19 15:24 05/25/19 15:24 05/25/19 15:24 05/25/19 15:24 - Physical Exam Constitutional: ill appearing HEENT: moist MMs Respiratory: cough Deviation from normal: Cough intermittant, dry Musculoskeletal: pulses present Neurology: moves all 4 limbs Skin: cap refill <2 seconds, bruising, fragile Psychiatric: A&O x 3 - Assessment (1) Palliative care encounter Code(s): Z51.5 - ENCOUNTER FOR PALLIATIVE CARE Current Visit: Yes Status: Acute (2) Pleural effusion Code(s): J90 - PLEURAL EFFUSION, NOT ELSEWHERE CLASSIFIED Current Visit: Yes Status: Acute (3) Aortic stenosis Code(s): I35.0 - NONRHEUMATIC AORTIC (VALVE) STENOSIS Current Visit: Yes Status: Chronic Qualifiers: Cardiac valve disease etiology: etiology unspecified Qualified Code(s): I35.0 - Nonrheumatic aortic (valve) stenosis (4) CHF (congestive heart failure) Code(s): I50.9 - HEART FAILURE, UNSPECIFIED Current Visit: No Status: Acute Qualifiers: (5) COPD exacerbation Code(s): J44.1 - CHRONIC OBSTRUCTIVE PULMONARY DISEASE W (ACUTE) EXACERBATION Current Visit: No Status: Chronic - Plan Plan: PT eval for strength and prevention of deconditiong. Speech to provide teaching in relation to aspiration precautions as patient has increase in shortness of breath with exertion Jonna Cm RN to continue to follow with patient, teaching in relation to management of anxiety related to shortness of breath. [40] minutes spent on this encounter with >50% of the time in counseling and coordination of care. - ROS Constitutional: alert, weakness Eyes: other ENT: alteration in dentition Respiratory: shortness of breath, shortness of breath with extertion Gastrointestinal: bloating
--- NOTE | 2019-05-25 16:55 | PDOC.HOSPP ---
- Subjective Encounter Date: 05/25/19 Encounter Time: 16:40 Subjective: f/u for acute hypoxic resp failure on O2 supplementation. Still has edema of LE' s, minimally ambulatory. Appetite improved. - Objective Vital Signs & Weight: Vital Signs (12 hours) Temp Pulse Resp BP Pulse Ox 05/25/19 15:24 97.8 F 95 22 H 102/50 L 93 L 05/25/19 13:43 94 18 99 05/25/19 12:00 97.8 F 98 18 108/56 L 92 L 05/25/19 11:21 91 20 97 05/25/19 08:44 87 05/25/19 07:35 87 18 93 L 05/25/19 07:31 98.5 F 91 20 104/44 L 95 Weight Admit Weight 162 lb 6.4 oz Weight 161 lb I&O: 05/24/19 05/25/19 05/26/19 06:59 06:59 06:59 Intake Total 720 1080 Output Total 500 625 Balance 220 455 Result Diagrams: 05/24/19 07:00 05/24/19 04:47 Additional Labs: Microbiology 05/24/19 15:02 Stool Stool Occult Blood (WENDY) - Final 05/19/19 20:33 Venous blood - Right Hand Blood Culture - Final NO GROWTH IN 5 DAYS 05/19/19 20:33 Venous blood - Left Hand Blood Culture - Final NO GROWTH IN 5 DAYS 05/19/19 20:12 Stool - Pending Stool Occult Blood (WENDY) - Final 05/19/19 18:40 Urine Straight Catheter Urine Culture - Final NO GROWTH AT 36 HOURS EKG Reviewed by me: Yes (Tele - A-fib in 80's) Hospitalist ROS - Medication Medications: Active Medications Generic Name Dose Route Start Last Admin Trade Name Freq PRN Reason Stop Dose Admin Albuterol/Ipratropium 3 ml 05/21/19 02:30 05/25/19 13:43 Duoneb NEB 3 ml [id number] JASON Administration Budesonide 0.5 mg 05/20/19 06:30 05/25/19 07:35 Pulmicort Neb Solution NEB 0.5 mg BID-RT JASON Administration Cefuroxime Axetil 250 mg 05/24/19 21:00 05/25/19 08:45 Ceftin PO 250 mg Q12HR JASON Administration Cholecalciferol 1,000 units 05/20/19 09:00 05/25/19 08:45 Vitamin D3 PO 1,000 units DAILY JASON Administration Digoxin 0.125 mg 05/23/19 09:00 05/25/19 08:44 Lanoxin PO 0.125 mg DAILY JASON Administration Diltiazem HCl 30 mg 05/22/19 14:00 05/25/19 15:15 Cardizem PO 30 mg Q8HR JASON Administration Enoxaparin Sodium 40 mg 05/20/19 09:00 05/25/19 08:45 Lovenox SC 40 mg 0900 JASON Administration Ipratropium [place] 2.5 ml 05/19/19 23:02 05/20/19 23:38 Atrovent NEB 2.5 ml [id number] PRN Administration SOB &/or Wheezing Lactulose 10 gm 05/20/19 09:00 05/25/19 08:44 Lactulose PO 10 gm BID JASON Administration Multivitamins 1 tab 05/20/19 09:00 05/25/19 08:45 Theragran PO 1 tab DAILY JASON Administration Pantoprazole Sodium 40 mg 05/20/19 09:00 05/25/19 08:45 Protonix PO 40 mg DAILY JASON Administration Rifaximin 550 mg 05/23/19 09:00 05/25/19 08:45 Xifaxan PO 550 mg BID JASON Administration Sodium Chloride 10 ml 05/20/19 21:00 05/25/19 09:05 Flush - Normal Saline IVF 10 ml Q12HR JASON Administration Spironolactone 100 mg 05/20/19 08:00 05/25/19 12:47 Aldactone PO Not Given [facility] Tamsulosin HCl 0.4 mg 05/20/19 21:00 05/24/19 21:04 Flomax PO 0.4 mg HS JASON Administration - Exam General Appearance: NAD, awake alert Eye: PERRL, anicteric sclera ENT: normocephalic atraumatic, no oropharyngeal lesions Neck: supple, symmetric, no JVD, no thyromegaly Heart: irregular, murmur present, II/IV Respiratory: tachypneic Respiratory - other findings: diminished in bases, occasional rhonchi Gastrointestinal: normal bowel sounds, no palpable masses, no splenomegaly, no rigidity, distended Extremities: no cyanosis, 2+ LE edema Skin: normal turgor, no lesions Neurological: cranial nerve grossly intact, no new deficit Musculoskeletal: normal tone, generalized weakness Psychiatric: A&O x 3 Hosp A/P (1) Acute and chronic respiratory failure with hypoxia Code(s): J96.21 - ACUTE AND CHRONIC RESPIRATORY FAILURE WITH HYPOXIA Status: Acute Plan: Continue O2 supplementation, decrease Lasix 20mg IV BID (2) Atrial fibrillation Code(s): I48.91 - UNSPECIFIED ATRIAL FIBRILLATION Status: Acute Qualifiers: Atrial fibrillation type: unspecified Qualified Code(s): I48.91 - Unspecified atrial fibrillation Plan: Continue Digoxin/Cardizem for rate-control, no anticoagulation (3) Cirrhosis, cryptogenic Code(s): K74.69 - OTHER CIRRHOSIS OF LIVER Status: Chronic Plan: Supportive mgmt, Xifaxan 550mg BID, Spironolactone (4) Hepatic encephalopathy Code(s): K72.90 - HEPATIC FAILURE, UNSPECIFIED WITHOUT COMA Status: Acute Plan: Improved, supportive mgmt, monitor Ammonia levels, continue Xifaxan - Plan plan discussed w/ family, continue antibiotics, PT/OT, aids social worker, respiratory therapy, out of bed/ambulate, DVT proph w/SCDs Stable currently Decrease Lasix 20mg IV BID Continue Digoxin/Cardizem No anticoagulation due to high risk of bleeding OOB with PT AM lab: BMP
--- NOTE | 2019-05-25 19:47 | PRG ---
DATE OF SERVICE: 05/25/2019 SUBJECTIVE: Ms. Umana is in no distress. OBJECTIVE: VITAL SIGNS: She is afebrile. Heart rate is 95, respiratory rate 18 to 22, oximetry is 93 to 99 on 3 L today. LUNGS: Distant. HEART: Regular rhythm. ABDOMEN: Soft. IMPRESSION: 1. Diastolic heart failure. 2. Cirrhosis. 3. Atrial fibrillation. 4. 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 5. Chronic obstructive pulmonary disease, which is stable at this time. 6. History of breast cancer. 7. History of inferior vena cava filter placement. 8. History of [id number]. I would think she would be stable enough to go to a skilled facility. I am not sure she is strong enough to go home and she relayed that she did not think she was. She is on p.o. antimicrobial therapy. She has continued to receive nebulizer treatments. She is currently not on prednisone. She appears to be stable to go into a skilled environment. The other physicians agree. We will sign off. Job ID: [id number]
[2019-05-25] MEDS: Tamsulosin HCl 0.4 MG CAP PO SCH (20:52)
[2019-05-26 05:00] LABS: Anion Gap 6 mmol/L (10-20); BUN (Urea Nitrogen) 27 mg/dL (9.8-20.1); Calc. Creatinine Clearance 72 mL/min (70-130); Calcium 9.3 mg/dL (7.8-10.44); Carbon Dioxide 36 mmol/L (23-31); Chloride 90 mmol/L (98-107); Estimated GFR-MDRD 71; Glucose 162 mg/dL (83-110); Potassium 5.3 mmol/L (3.5-5.1); Sodium 127 mmol/L (136-145)
[2019-05-26] MEDS: Furosemide 20 MG/2 ML VIAL SLOW IVP SCH ×2 (06:06→13:44)
[2019-05-26] MEDS ORDERED: Furosemide 40 MG/4 ML VIAL SLOW IVP SCH (09:00)
[2019-05-26] MEDS: Budesonide 0.5 MG/2 ML NEB NEB SCH ×2 (09:03→18:12)
[2019-05-26] MEDS: Rifaximin 550 MG TAB PO SCH ×2 (09:29→21:16)
[2019-05-26] MEDS: Cefuroxime Axetil 250 MG TAB PO SCH ×2 (09:29→21:16)
[2019-05-26] MEDS: Multivit, Therapeutic 1 TAB PO SCH (09:29)
[2019-05-26] MEDS: Digoxin 0.125 MG TAB PO SCH (09:29)
[2019-05-26] MEDS: Spironolactone 100 MG TAB PO SCH (10:49)
[2019-05-26] MEDS: Enoxaparin Sodium 40 MG/0.4 ML SYRINGE SC SCH (10:49)
--- NOTE | 2019-05-26 12:42 | PDOC.HOSPP ---
- Subjective Encounter Date: 05/26/19 Encounter Time: 12:40 Subjective: f/u for - Objective Vital Signs & Weight: Vital Signs (12 hours) Temp Pulse Resp BP Pulse Ox 05/26/19 11:15 98.1 F 100 19 107/54 L 94 L 05/26/19 09:29 88 05/26/19 09:04 90 L 05/26/19 09:03 88 20 05/26/19 07:45 93 L 05/26/19 07:13 97.9 F 93 20 99/50 L 93 L 05/26/19 04:07 97.3 F L 100 14 111/55 L 92 L 05/26/19 00:43 95 Weight Admit Weight 162 lb 6.4 oz Weight 160 lb I&O: 05/25/19 05/26/19 05/27/19 06:59 06:59 06:59 Intake Total 1080 1200 Output Total 625 870 Balance 455 330 Result Diagrams: 05/24/19 07:00 05/26/19 04:32 Additional Labs: Microbiology 05/19/19 20:33 Venous blood - Right Hand Blood Culture - Final NO GROWTH IN 5 DAYS 05/19/19 20:33 Venous blood - Left Hand Blood Culture - Final NO GROWTH IN 5 DAYS 05/19/19 20:12 Stool - Pending Stool Occult Blood (WENDY) - Final 05/19/19 18:40 Urine Straight Catheter Urine Culture - Final NO GROWTH AT 36 HOURS Laboratory Tests 05/20/19 04:56 Potassium 5.0 BUN 25 H EKG Reviewed by me: Yes (Tele - SR) Hospitalist ROS - Medication Medications: Active Medications Generic Name Dose Route Start Last Admin Trade Name Shortyq PRN Reason Stop Dose Admin Albuterol/Ipratropium 3 ml 05/21/19 02:30 05/26/19 09:03 Duoneb NEB 3 ml [id number] JASON Administration Budesonide 0.5 mg 05/20/19 06:30 05/26/19 09:03 Pulmicort Neb Solution NEB 0.5 mg BID-RT JASON Administration Cefuroxime Axetil 250 mg 05/24/19 21:00 05/26/19 09:29 Ceftin PO 250 mg Q12HR JASON Administration Cholecalciferol 1,000 units 05/20/19 09:00 05/26/19 09:29 Vitamin D3 PO 1,000 units DAILY JASON Administration Digoxin 0.125 mg 05/23/19 09:00 05/26/19 09:29 Lanoxin PO 0.125 mg DAILY JASON Administration Diltiazem HCl 30 mg 05/22/19 14:00 05/26/19 06:06 Cardizem PO 30 mg Q8HR JASON Administration Enoxaparin Sodium 40 mg 05/20/19 09:00 05/26/19 10:49 Lovenox SC Not Given 0900 [facility] Furosemide 20 mg 05/26/19 06:00 05/26/19 06:06 Lasix SLOW IVP 20 mg 0600,1400 JASON Administration Ipratropium [place] 2.5 ml 05/19/19 23:02 05/20/19 23:38 Atrovent NEB 2.5 ml [id number] PRN Administration SOB &/or Wheezing Lactulose 10 gm 05/20/19 09:00 05/26/19 09:29 Lactulose PO 10 gm BID JASON Administration Multivitamins 1 tab 05/20/19 09:00 05/26/19 09:29 Theragran PO 1 tab DAILY [facility] Administration Pantoprazole Sodium 40 mg 05/20/19 09:00 05/26/19 09:29 Protonix PO 40 mg DAILY JASON Administration Rifaximin 550 mg 05/23/19 09:00 05/26/19 09:29 Xifaxan PO 550 mg BID JASON Administration Sodium Chloride 10 ml 05/20/19 21:00 05/26/19 09:24 Flush - Normal Saline IVF Not Given Q12HR [facility] Spironolactone 100 mg 05/20/19 08:00 05/26/19 10:49 Aldactone PO Not Given QAM-WM [facility] Tamsulosin HCl 0.4 mg 05/20/19 21:00 05/25/19 20:52 Flomax PO 0.4 mg HS JASON Administration - Exam General Appearance: NAD, awake alert Eye: PERRL, anicteric sclera ENT: normocephalic atraumatic, no oropharyngeal lesions Neck: supple, symmetric, no JVD, no thyromegaly Heart: no gallops, no rubs, normal peripheral pulses, irregular Respiratory: CTAB, no rales Gastrointestinal: non-tender, normal bowel sounds, distended Extremities: no cyanosis, 2+ LE edema Skin: normal turgor, no lesions Neurological: cranial nerve grossly intact, no new deficit Musculoskeletal: normal tone, generalized weakness Psychiatric: normal affect, A&O x 3 Hosp A/P (1) Acute and chronic respiratory failure with hypoxia Code(s): J96.21 - ACUTE AND CHRONIC RESPIRATORY FAILURE WITH HYPOXIA Status: Acute Plan: Continue O2 @ 3L/min NC, general pulm support (2) Atrial fibrillation Code(s): I48.91 - UNSPECIFIED ATRIAL FIBRILLATION Status: Chronic Qualifiers: Atrial fibrillation type: unspecified Qualified Code(s): I48.91 - Unspecified atrial fibrillation Plan: Rate-controlled, continue Digoxin/Diltiazem, no anticoagulation due to high bleeding risk (3) Cirrhosis, cryptogenic Code(s): K74.69 - OTHER CIRRHOSIS OF LIVER Status: Chronic Plan: Continue supportive mgmt (4) Hepatic encephalopathy Code(s): K72.90 - HEPATIC FAILURE, UNSPECIFIED WITHOUT COMA Status: Acute Plan: Continue Xifaxan, Lactulose - Plan continue antibiotics, PT/OT, home health care social worker, out of bed/ambulate, DVT proph w/ SCDs Stable currently Decrease Lasix 20mg IV BID Continue Digoxin/Cardizem No anticoagulation due to high risk of bleeding OOB with PT AM lab: BMP [facility] in next 24-48h
[2019-05-26] MEDS: Tamsulosin HCl 0.4 MG CAP PO SCH (21:16)
[2019-05-27 05:14] LABS: Anion Gap 8 mmol/L (10-20); BUN (Urea Nitrogen) 24 mg/dL (9.8-20.1); Calc. Creatinine Clearance 81 mL/min (70-130); Calcium 9.2 mg/dL (7.8-10.44); Carbon Dioxide 36 mmol/L (23-31); Chloride 91 mmol/L (98-107); Estimated GFR-MDRD 82; Glucose 139 mg/dL (83-110); Potassium 4.9 mmol/L (3.5-5.1); Sodium 130 mmol/L (136-145)
[2019-05-27] MEDS: Furosemide 20 MG/2 ML VIAL SLOW IVP SCH ×2 (06:26→14:08)
[2019-05-27] MEDS: Budesonide 0.5 MG/2 ML NEB NEB SCH ×2 (07:35→18:58)
[2019-05-27] MEDS: Enoxaparin Sodium 40 MG/0.4 ML SYRINGE SC SCH (08:56)
[2019-05-27] MEDS: Digoxin 0.125 MG TAB PO SCH (08:57)
[2019-05-27] MEDS: Spironolactone 100 MG TAB PO SCH (08:57)
[2019-05-27] MEDS: Multivit, Therapeutic 1 TAB PO SCH (08:57)
[2019-05-27] MEDS: Cefuroxime Axetil 250 MG TAB PO SCH ×2 (08:57→20:41)
[2019-05-27] MEDS: Rifaximin 550 MG TAB PO SCH ×2 (08:57→20:41)
[2019-05-27] MEDS: Tamsulosin HCl 0.4 MG CAP PO SCH (20:41)
[2019-05-28] MEDS: Furosemide 20 MG/2 ML VIAL SLOW IVP SCH ×2 (06:09→13:43)
[2019-05-28] MEDS: Spironolactone 100 MG TAB PO SCH (08:44)
[2019-05-28] MEDS: Rifaximin 550 MG TAB PO SCH ×2 (08:44→19:28)
[2019-05-28] MEDS: Enoxaparin Sodium 40 MG/0.4 ML SYRINGE SC SCH (08:44)
[2019-05-28] MEDS: Digoxin 0.125 MG TAB PO SCH (08:44)
[2019-05-28] MEDS: Multivit, Therapeutic 1 TAB PO SCH (08:44)
[2019-05-28] MEDS: Cefuroxime Axetil 250 MG TAB PO SCH ×2 (08:44→19:28)
[2019-05-28] MEDS: Budesonide 0.5 MG/2 ML NEB NEB SCH ×2 (08:46→19:33)
[2019-05-28] MEDS: Acetaminophen 325 MG TAB PO PRN (15:31)
--- NOTE | 2019-05-28 18:58 | PDOC.HOSPP ---
- Subjective Encounter Date: 05/28/19 Encounter Time: 10:30 Subjective: pt up in bed no complains - Objective Vital Signs & Weight: Vital Signs (12 hours) Temp Pulse Resp BP Pulse Ox 05/28/19 15:32 97.8 F 109 H 18 124/59 L 93 L 05/28/19 14:49 86 16 05/28/19 12:00 97.5 F L 86 20 126/56 L 100 05/28/19 11:44 90 20 05/28/19 11:14 97.9 F 90 18 126/60 96 05/28/19 08:44 95 05/28/19 08:40 89 16 05/28/19 07:14 97.6 F 95 18 109/52 L 96 Weight Admit Weight 162 lb 6.4 oz Weight 163 lb I&O: 05/27/19 05/28/19 05/29/19 06:59 06:59 06:59 Intake Total 1238 1350 1000 Output Total 2110 1850 350 Balance -872 -500 650 Result Diagrams: 05/24/19 07:00 05/27/19 04:42 Hospitalist ROS - Review of Systems Cardiovascular: denies: chest pain, palpitations, orthopnea, paroxysmal noc. dyspnea, edema, light headedness, other Gastrointestinal: denies: nausea, vomiting, abdominal pain, diarrhea, constipation, melena, hematochezia, other - Medication Medications: Active Medications Generic Name Dose Route Start Last Admin Trade Name Freq PRN Reason Stop Dose Admin Acetaminophen 650 mg 05/19/19 21:50 05/28/19 15:31 Tylenol PO 650 mg Q4H PRN Administration Headache/Fever/Mild Pain (1-3) Albuterol/Ipratropium 3 ml 05/21/19 02:30 05/28/19 14:49 Duoneb NEB 3 ml [id number] JASON Administration Budesonide 0.5 mg 05/20/19 06:30 05/28/19 08:46 Pulmicort Neb Solution NEB 0.5 mg BID-RT JASON Administration Cefuroxime Axetil 250 mg 05/24/19 21:00 05/28/19 08:44 Ceftin PO 250 mg Q12HR JASON Administration Cholecalciferol 1,000 units 05/20/19 09:00 05/28/19 08:44 Vitamin D3 PO 1,000 units DAILY JASON Administration Digoxin 0.125 mg 05/23/19 09:00 05/28/19 08:44 Lanoxin PO 0.125 mg DAILY JASON Administration Diltiazem HCl 30 mg 05/22/19 14:00 05/28/19 13:43 Cardizem PO 30 mg Q8HR JASON Administration Enoxaparin Sodium 40 mg 05/20/19 09:00 05/28/19 08:44 Lovenox SC 40 mg 0900 JASON Administration Furosemide 20 mg 05/26/19 06:00 05/28/19 13:43 Lasix SLOW IVP 20 mg 0600,1400 JASON Administration Ipratropium [place] 2.5 ml 05/19/19 23:02 05/20/19 23:38 Atrovent NEB 2.5 ml [id number] PRN Administration SOB &/or Wheezing Lactulose 10 gm 05/20/19 09:00 05/28/19 08:44 Lactulose PO 10 gm BID JASON Administration Multivitamins 1 tab 05/20/19 09:00 05/28/19 08:44 Theragran PO 1 tab DAILY JASON Administration Pantoprazole Sodium 40 mg 05/20/19 09:00 05/28/19 08:44 Protonix PO 40 mg DAILY JASON Administration Rifaximin 550 mg 05/23/19 09:00 05/28/19 08:44 Xifaxan PO 550 mg BID JASON Administration Sodium Chloride 10 ml 05/20/19 21:00 05/28/19 08:44 Flush - Normal Saline IVF 10 ml Q12HR JASON Administration Spironolactone 100 mg 05/20/19 08:00 05/28/19 08:44 Aldactone PO 100 mg QAM-WM JASON Administration Tamsulosin HCl 0.4 mg 05/20/19 21:00 05/27/19 20:41 Flomax PO 0.4 mg HS JASON Administration - Exam Heart: negative: RRR, no murmur, no gallops, no rubs, normal peripheral pulses, irregular, diminshed peripheral pulses, murmur present, II/IV, III/IV Respiratory: negative: CTAB, no wheezes, no rales, no ronchi, normal chest expansion, no tachypnea, normal percussion, rales, rhonchi, tachypneic, wheezes Gastrointestinal: soft, normal bowel sounds, distended Hosp A/P (1) Acute respiratory failure with hypoxemia Code(s): J96.01 - ACUTE RESPIRATORY FAILURE WITH HYPOXIA Status: Acute (2) CHF (congestive heart failure) Code(s): I50.9 - HEART FAILURE, UNSPECIFIED Status: Acute (3) Alcoholic cirrhosis of liver Code(s): K70.30 - ALCOHOLIC CIRRHOSIS OF LIVER WITHOUT ASCITES Status: Acute (4) Liver cirrhosis Code(s): K74.60 - UNSPECIFIED CIRRHOSIS OF LIVER Status: Acute (5) Atrial fibrillation Code(s): I48.91 - UNSPECIFIED ATRIAL FIBRILLATION Status: Chronic Qualifiers: Atrial fibrillation type: unspecified Qualified Code(s): I48.91 - Unspecified atrial fibrillation - Plan will change lasix to oral. awaiting placement. pt's rate is controlled not on any AC due to fall risk and bleeding.
--- NOTE | 2019-05-28 19:01 | PDOC.HOSPP ---
- Subjective Encounter Date: 05/27/19 Encounter Time: 09:00 Subjective: pt up in bed complains of some leg swelling - Objective Vital Signs & Weight: Vital Signs (12 hours) Temp Pulse Resp BP Pulse Ox 05/28/19 15:32 97.8 F 109 H 18 124/59 L 93 L 05/28/19 14:49 86 16 05/28/19 12:00 97.5 F L 86 20 126/56 L 100 05/28/19 11:44 90 20 05/28/19 11:14 97.9 F 90 18 126/60 96 05/28/19 08:44 95 05/28/19 08:40 89 16 05/28/19 07:14 97.6 F 95 18 109/52 L 96 Weight Admit Weight 162 lb 6.4 oz Weight 163 lb I&O: 05/27/19 05/28/19 05/29/19 06:59 06:59 06:59 Intake Total 1238 1350 1000 Output Total 2110 1850 350 Balance -872 -500 650 Result Diagrams: 05/24/19 07:00 05/27/19 04:42 Hospitalist ROS - Review of Systems Cardiovascular: reports: other (leg swelling). denies: chest pain, palpitations , orthopnea, paroxysmal noc. dyspnea, edema, light headedness Gastrointestinal: denies: nausea, vomiting, abdominal pain, diarrhea, constipation, melena, hematochezia, other - Medication Medications: Active Medications Generic Name Dose Route Start Last Admin Trade Name Freq PRN Reason Stop Dose Admin Acetaminophen 650 mg 05/19/19 21:50 05/28/19 15:31 Tylenol PO 650 mg Q4H PRN Administration Headache/Fever/Mild Pain (1-3) Albuterol/Ipratropium 3 ml 05/21/19 02:30 05/28/19 14:49 Duoneb NEB 3 ml [id number] JASON Administration Budesonide 0.5 mg 05/20/19 06:30 05/28/19 08:46 Pulmicort Neb Solution NEB 0.5 mg BID-RT JASON Administration Cefuroxime Axetil 250 mg 05/24/19 21:00 05/28/19 08:44 Ceftin PO 250 mg Q12HR JASON Administration Cholecalciferol 1,000 units 05/20/19 09:00 05/28/19 08:44 Vitamin D3 PO 1,000 units DAILY JASON Administration Digoxin 0.125 mg 05/23/19 09:00 05/28/19 08:44 Lanoxin PO 0.125 mg DAILY JASON Administration Diltiazem HCl 30 mg 05/22/19 14:00 05/28/19 13:43 Cardizem PO 30 mg Q8HR JASON Administration Enoxaparin Sodium 40 mg 05/20/19 09:00 05/28/19 08:44 Lovenox SC 40 mg 0900 JASON Administration Furosemide 20 mg 05/26/19 06:00 05/28/19 13:43 Lasix SLOW IVP 20 mg 0600,1400 JASON Administration Ipratropium [place] 2.5 ml 05/19/19 23:02 05/20/19 23:38 Atrovent NEB 2.5 ml [id number] PRN Administration SOB &/or Wheezing Lactulose 10 gm 05/20/19 09:00 05/28/19 08:44 Lactulose PO 10 gm BID JASON Administration Multivitamins 1 tab 05/20/19 09:00 05/28/19 08:44 Theragran PO 1 tab DAILY JASON Administration Pantoprazole Sodium 40 mg 05/20/19 09:00 05/28/19 08:44 Protonix PO 40 mg DAILY JASON Administration Rifaximin 550 mg 05/23/19 09:00 05/28/19 08:44 Xifaxan PO 550 mg BID JASON Administration Sodium Chloride 10 ml 05/20/19 21:00 05/28/19 08:44 Flush - Normal Saline IVF 10 ml Q12HR JASON Administration Spironolactone 100 mg 05/20/19 08:00 05/28/19 08:44 Aldactone PO 100 mg QAM-WM JASON Administration Tamsulosin HCl 0.4 mg 05/20/19 21:00 05/27/19 20:41 Flomax PO 0.4 mg HS JASON Administration - Exam Heart: negative: RRR, no murmur, no gallops, no rubs, normal peripheral pulses, irregular, diminshed peripheral pulses, murmur present, II/IV, III/IV Respiratory: negative: CTAB, no wheezes, no rales, no ronchi, normal chest expansion, no tachypnea, normal percussion, rales, rhonchi, tachypneic, wheezes Gastrointestinal: negative: soft, non-tender, non-distended, normal bowel sounds , no palpable masses, no hepatomegaly, no splenomegaly, no bruit, no guarding, no rigidity, tender to palpation, distended, diminished bowl sounds, voluntary guarding Hosp A/P (1) Acute respiratory failure with hypoxemia Code(s): J96.01 - ACUTE RESPIRATORY FAILURE WITH HYPOXIA Status: Acute (2) CHF (congestive heart failure) Code(s): I50.9 - HEART FAILURE, UNSPECIFIED Status: Acute (3) Alcoholic cirrhosis of liver Code(s): K70.30 - ALCOHOLIC CIRRHOSIS OF LIVER WITHOUT ASCITES Status: Acute (4) Liver cirrhosis Code(s): K74.60 - UNSPECIFIED CIRRHOSIS OF LIVER Status: Acute (5) Atrial fibrillation Code(s): I48.91 - UNSPECIFIED ATRIAL FIBRILLATION Status: Chronic Qualifiers: Atrial fibrillation type: unspecified Qualified Code(s): I48.91 - Unspecified atrial fibrillation - Plan will continue current meds. awaiting placement. pt's rate controlled. No AC will change lasix to oral. awaiting placement. pt's rate is controlled not on any AC due to fall risk and bleeding.
[2019-05-28] MEDS: Tamsulosin HCl 0.4 MG CAP PO SCH (19:28)
[2019-05-29] MEDS: Furosemide 20 MG/2 ML VIAL SLOW IVP SCH (06:19)
[2019-05-29] MEDS: Budesonide 0.5 MG/2 ML NEB NEB SCH ×2 (07:30→19:18)
[2019-05-29] MEDS: Digoxin 0.125 MG TAB PO SCH (08:22)
[2019-05-29] MEDS: Cefuroxime Axetil 250 MG TAB PO SCH ×2 (08:22→21:30)
[2019-05-29] MEDS: Rifaximin 550 MG TAB PO SCH ×2 (08:23→21:32)
[2019-05-29] MEDS: Multivit, Therapeutic 1 TAB PO SCH (08:23)
[2019-05-29] MEDS: Spironolactone 100 MG TAB PO SCH (08:23)
[2019-05-29] MEDS: Enoxaparin Sodium 40 MG/0.4 ML SYRINGE SC SCH (08:24)
[2019-05-29 11:50] LABS: Anion Gap 12 mmol/L (10-20); BUN (Urea Nitrogen) 25 mg/dL (9.8-20.1); Calc. Creatinine Clearance 69 mL/min (70-130); Calcium 9.1 mg/dL (7.8-10.44); Carbon Dioxide 31 mmol/L (23-31); Chloride 89 mmol/L (98-107); Estimated GFR-MDRD 66; Glucose 204 mg/dL (83-110); Potassium 5.2 mmol/L (3.5-5.1); Sodium 127 mmol/L (136-145)
--- NOTE | 2019-05-29 12:12 | RAD ---
XR Chest 1 View Portable History: Shortness of breath Comparison: Radiograph May 21, 2019 Findings: Large layering right effusion with loculation. Extensive opacities throughout the lungs are relatively similar. No pneumothorax. Small left effusion. Heart size is enlarged. No acute osseous abnormality. Impression: Similar examination of the chest.
[2019-05-29 12:29] LABS: #Lymphocytes 0.5 thou/uL (1.20-3.40); #Monocytes 1.1 thou/uL (0.11-0.59); #Neutrophils 8.3 thou/uL (1.40-6.50); %Basophils 0.2 % (0.0-1.0); %Eosinophils 0.4 % (0.0-10.0); %Lymphocytes 4.6 % (21.0-51.0); %Monocytes 11.5 % (0.0-10.0); %Neutrophils 83.4 % (42.0-75.0); Hemoglobin 9.5 g/dL (12.0-16.0); Mean Corpuscular HGB CONC 31.7 g/dL (32.0-36.0); Mean Corpuscular Hemoglobin 30.9 pg (27.0-31.0); Mean Corpuscular Volume 97.7 fL (78.0-98.0); Mean Platelet Volume 8.1 fL (7.4-10.4); Platelet Count 87 thou/uL (130-400); RBC Distribution Width 17.3 % (11.5-14.5); Red Blood Cell (RBC) Count 3.06 mill/uL (4.20-5.40); White Blood Cell (WBC) Count 9.9 thou/uL (4.8-10.8)
[2019-05-29] MEDS ORDERED: Albumin 25% 25 GM/100 ML BOT IVPB SCH (13:05)
[2019-05-29] MEDS ORDERED: Furosemide 40 MG/4 ML VIAL SLOW IVP SCH (13:15)
--- NOTE | 2019-05-29 16:40 | PDOC.HOSPP ---
- Subjective Encounter Date: 05/29/19 Encounter Time: 10:30 Subjective: pt up in bed complains of sob - Objective Vital Signs & Weight: Vital Signs (12 hours) Temp Pulse Pulse Resp BP BP BP 05/29/19 15:39 97.1 F L 89 20 123/60 05/29/19 14:56 97 16 05/29/19 13:11 100 119/58 L 05/29/19 11:33 97.4 F L 97 20 133/62 05/29/19 10:41 98 20 05/29/19 08:15 98.1 F 107 H 17 111/56 L 05/29/19 07:32 05/29/19 07:30 96 16 Pulse Ox Pulse Ox 05/29/19 15:39 98 05/29/19 14:56 05/29/19 13:11 94 L 05/29/19 11:33 93 L 05/29/19 10:41 05/29/19 08:15 91 L 05/29/19 07:32 99 05/29/19 07:30 Weight Admit Weight 162 lb 6.4 oz Weight 164 lb I&O: 05/28/19 05/29/19 05/30/19 06:59 06:59 06:59 Intake Total 1350 1400 Output Total 1850 1150 Balance -500 250 Result Diagrams: 05/29/19 12:17 05/29/19 11:06 Hospitalist ROS - Review of Systems Respiratory: reports: shortness of breath Cardiovascular: denies: chest pain, palpitations, orthopnea, paroxysmal noc. dyspnea, edema, light headedness, other Gastrointestinal: denies: nausea, vomiting, abdominal pain, diarrhea, constipation, melena, hematochezia, other - Medication Medications: Active Medications Generic Name Dose Route Start Last Admin Trade Name Freq PRN Reason Stop Dose Admin Acetaminophen 650 mg 05/19/19 21:50 05/28/19 15:31 Tylenol PO 650 mg Q4H PRN Administration Headache/Fever/Mild Pain (1-3) Albuterol/Ipratropium 3 ml 05/21/19 02:30 05/29/19 14:56 Duoneb NEB 3 ml [id number] JASON Administration Budesonide 0.5 mg 05/20/19 06:30 05/29/19 07:30 Pulmicort Neb Solution NEB 0.5 mg BID-RT JASON Administration Cefuroxime Axetil 250 mg 05/24/19 21:00 05/29/19 08:22 Ceftin PO 250 mg Q12HR JASON Administration Cholecalciferol 1,000 units 05/20/19 09:00 05/29/19 08:22 Vitamin D3 PO 1,000 units DAILY JASON Administration Digoxin 0.125 mg 05/23/19 09:00 05/29/19 08:22 Lanoxin PO 0.125 mg DAILY JASON Administration Diltiazem HCl 30 mg 05/22/19 14:00 05/29/19 14:05 Cardizem PO 30 mg Q8HR JASON Administration Enoxaparin Sodium 40 mg 05/20/19 09:00 05/29/19 08:24 Lovenox SC 40 mg 899 JASON Administration Ipratropium [place] 2.5 ml 05/19/19 23:02 05/20/19 23:38 Atrovent NEB 2.5 ml [id number] PRN Administration SOB &/or Wheezing Lactulose 10 gm 05/20/19 09:00 05/29/19 08:24 Lactulose PO 10 gm BID JASON Administration Multivitamins 1 tab 05/20/19 09:00 05/29/19 08:23 Theragran PO 1 tab DAILY JASON Administration Pantoprazole Sodium 40 mg 05/20/19 09:00 05/29/19 08:23 Protonix PO 40 mg DAILY JASON Administration Rifaximin 550 mg 05/23/19 09:00 05/29/19 08:23 Xifaxan PO 550 mg BID JASON Administration Sodium Chloride 10 ml 05/20/19 21:00 05/29/19 08:25 Flush - Normal Saline IVF 10 ml Q12HR JASON Administration Spironolactone 100 mg 05/20/19 08:00 05/29/19 08:23 Aldactone PO 100 mg QAM-WM JASON Administration Tamsulosin HCl 0.4 mg 05/20/19 21:00 05/28/19 19:28 Flomax PO 0.4 mg HS JASON Administration - Exam Neck: negative: supple, symmetric, no JVD, no thyromegaly, no lymphadenopathy, no carotid bruit, JVD Heart: negative: RRR, no murmur, no gallops, no rubs, normal peripheral pulses, irregular, diminshed peripheral pulses, murmur present, II/IV, III/IV Respiratory - other findings: decreased breath sound to lower bases Hosp A/P (1) Acute respiratory failure with hypoxemia Code(s): J96.01 - ACUTE RESPIRATORY FAILURE WITH HYPOXIA Status: Acute (2) CHF (congestive heart failure) Code(s): I50.9 - HEART FAILURE, UNSPECIFIED Status: Acute (3) Alcoholic cirrhosis of liver Code(s): K70.30 - ALCOHOLIC CIRRHOSIS OF LIVER WITHOUT ASCITES Status: Acute (4) Liver cirrhosis Code(s): K74.60 - UNSPECIFIED CIRRHOSIS OF LIVER Status: Acute (5) Atrial fibrillation Code(s): I48.91 - UNSPECIFIED ATRIAL FIBRILLATION Status: Chronic Qualifiers: Atrial fibrillation type: unspecified Qualified Code(s): I48.91 - Unspecified atrial fibrillation - Plan will continue current meds. awaiting placement. pt's rate controlled. No AC will change lasix to oral. awaiting placement. pt's rate is controlled not on any AC due to fall risk and bleeding. 05/29 pt's cxr no changes but her right lower lung effusion still persists. will give her one dose of iv lasix with albumin to help with her bp.
[2019-05-29] MEDS: Tamsulosin HCl 0.4 MG CAP PO SCH (21:32)
[2019-05-30 05:24] LABS: Anion Gap 12 mmol/L (10-20); BUN (Urea Nitrogen) 28 mg/dL (9.8-20.1); Calc. Creatinine Clearance 75 mL/min (70-130); Calcium 9.3 mg/dL (7.8-10.44); Carbon Dioxide 29 mmol/L (23-31); Chloride 91 mmol/L (98-107); Estimated GFR-MDRD 73; Glucose 135 mg/dL (83-110); Magnesium 1.7 mg/dL (1.6-2.6); Sodium 127 mmol/L (136-145)
[2019-05-30] MEDS: Budesonide 0.5 MG/2 ML NEB NEB SCH ×2 (07:31→18:23)
[2019-05-30] MEDS ORDERED: Metolazone 2.5 MG TAB PO SCH (08:30)
[2019-05-30] MEDS: Spironolactone 100 MG TAB PO SCH (08:36)
[2019-05-30] MEDS: Rifaximin 550 MG TAB PO SCH ×2 (08:37→21:03)
[2019-05-30] MEDS: Digoxin 0.125 MG TAB PO SCH (08:37)
[2019-05-30] MEDS: Cefuroxime Axetil 250 MG TAB PO SCH ×2 (08:37→21:02)
[2019-05-30] MEDS: Multivit, Therapeutic 1 TAB PO SCH (08:37)
[2019-05-30] MEDS ORDERED: Torsemide 20 MG TAB PO SCH (09:00)
[2019-05-30] MEDS ORDERED: Bumetanide 1 MG/4 ML VIAL IVP SCH (09:00)
[2019-05-30 10:17] LABS: #Lymphocytes 0.5 thou/uL (1.20-3.40); #Monocytes 1.2 thou/uL (0.11-0.59); #Neutrophils 7.7 thou/uL (1.40-6.50); %Basophils 0.3 % (0.0-1.0); %Eosinophils 0.2 % (0.0-10.0); %Lymphocytes 5.3 % (21.0-51.0); %Monocytes 12.5 % (0.0-10.0); %Neutrophils 81.7 % (42.0-75.0); Hemoglobin 9.3 g/dL (12.0-16.0); Mean Corpuscular HGB CONC 31.1 g/dL (32.0-36.0); Mean Corpuscular Hemoglobin 31.1 pg (27.0-31.0); Mean Platelet Volume 8.4 fL (7.4-10.4); Platelet Count 84 thou/uL (130-400); RBC Distribution Width 17.4 % (11.5-14.5); Red Blood Cell (RBC) Count 2.98 mill/uL (4.20-5.40); White Blood Cell (WBC) Count 9.5 thou/uL (4.8-10.8)
[2019-05-30] MEDS: Enoxaparin Sodium 40 MG/0.4 ML SYRINGE SC SCH (11:38)
--- NOTE | 2019-05-30 16:41 | ULT ---
US Abdomen Limited History: Evaluate for peritoneal fluid Comparison: None. Findings: No significant free intraperitoneal fluid. Impression: No significant free intraperitoneal fluid.
--- NOTE | 2019-05-30 19:09 | PDOC.HOSPP ---
- Subjective Encounter Date: 05/30/19 Encounter Time: 11:30 Subjective: pt up in bed still has some sob. - Objective Vital Signs & Weight: Vital Signs (12 hours) Temp Pulse Resp BP BP Pulse Ox 05/30/19 18:23 88 20 96 05/30/19 18:22 88 20 96 05/30/19 15:19 97.6 F 92 20 113/55 L 96 05/30/19 13:50 102 H 24 H 90 L 05/30/19 11:18 98.2 F 97 18 134/60 93 L 05/30/19 10:54 88 20 92 L 05/30/19 08:30 97.6 F 90 24 H 113/51 L 91 L 05/30/19 07:31 95 05/30/19 07:29 84 18 95 Weight Admit Weight 162 lb 6.4 oz Weight 163 lb 14.4 oz I&O: 05/29/19 05/30/19 05/31/19 06:59 06:59 06:59 Intake Total 1400 1260 Output Total 1150 1220 Balance 250 40 Result Diagrams: 05/30/19 09:34 05/30/19 04:29 Hospitalist ROS - Review of Systems Respiratory: reports: shortness of breath. denies: cough, dry, hemoptysis, SOB with excertion, pleuritic pain, sputum, wheezing, other Cardiovascular: denies: chest pain, palpitations, orthopnea, paroxysmal noc. dyspnea, edema, light headedness, other Gastrointestinal: denies: nausea, vomiting, abdominal pain, diarrhea, constipation, melena, hematochezia, other - Medication Medications: Active Medications Generic Name Dose Route Start Last Admin Trade Name Freq PRN Reason Stop Dose Admin Acetaminophen 650 mg 05/19/19 21:50 05/28/19 15:31 Tylenol PO 650 mg Q4H PRN Administration Headache/Fever/Mild Pain (1-3) Albuterol/Ipratropium 3 ml 05/21/19 02:30 05/30/19 18:22 Duoneb NEB 3 ml [id number] JASON Administration Budesonide 0.5 mg 05/20/19 06:30 05/30/19 18:23 Pulmicort Neb Solution NEB 0.5 mg BID-RT JASON Administration Bumetanide 1 mg 05/30/19 09:00 05/30/19 08:37 Bumex IVP 1 mg DAILY JASON Administration Cefuroxime Axetil 250 mg 05/24/19 21:00 05/30/19 08:37 Ceftin PO 250 mg Q12HR JASON Administration Cholecalciferol 1,000 units 05/20/19 09:00 05/30/19 08:36 Vitamin D3 PO 1,000 units DAILY JASON Administration Digoxin 0.125 mg 05/23/19 09:00 05/30/19 08:37 Lanoxin PO 0.125 mg DAILY JASON Administration Diltiazem HCl 30 mg 05/22/19 14:00 05/30/19 14:51 Cardizem PO 30 mg Q8HR JASON Administration Enoxaparin Sodium 40 mg 05/20/19 09:00 05/30/19 11:38 Lovenox SC Not Given 899 REPLACED BY [facility] Ipratropium [place] 2.5 ml 05/19/19 23:02 05/20/19 23:38 Atrovent NEB 2.5 ml [id number] PRN Administration SOB &/or Wheezing Lactulose 10 gm 05/20/19 09:00 05/30/19 08:38 Lactulose PO 10 gm BID REPLACED BY [facility] Administration Multivitamins 1 tab 05/20/19 09:00 05/30/19 08:37 Theragran PO 1 tab DAILY REPLACED BY [facility] Administration Pantoprazole Sodium 40 mg 05/20/19 09:00 05/30/19 08:37 Protonix PO 40 mg DAILY JASON Administration Rifaximin 550 mg 05/23/19 09:00 05/30/19 08:37 Xifaxan PO 550 mg BID JASON Administration Sodium Chloride 10 ml 05/20/19 21:00 05/30/19 11:39 Flush - Normal Saline IVF Not Given Q12HR JASON Spironolactone 100 mg 05/20/19 08:00 05/30/19 08:36 Aldactone PO 100 mg QAM-WM JASON Administration Tamsulosin HCl 0.4 mg 05/20/19 21:00 05/29/19 21:32 Flomax PO 0.4 mg HS JASON Administration - Exam Neck: negative: supple, symmetric, no JVD, no thyromegaly, no lymphadenopathy, no carotid bruit, JVD Heart: negative: RRR, no murmur, no gallops, no rubs, normal peripheral pulses, irregular, diminshed peripheral pulses, murmur present, II/IV, III/IV Respiratory - other findings: decreased breath sounds to bases Hosp A/P (1) Acute respiratory failure with hypoxemia Code(s): J96.01 - ACUTE RESPIRATORY FAILURE WITH HYPOXIA Status: Acute (2) CHF (congestive heart failure) Code(s): I50.9 - HEART FAILURE, UNSPECIFIED Status: Acute (3) Alcoholic cirrhosis of liver Code(s): K70.30 - ALCOHOLIC CIRRHOSIS OF LIVER WITHOUT ASCITES Status: Acute (4) Liver cirrhosis Code(s): K74.60 - UNSPECIFIED CIRRHOSIS OF LIVER Status: Acute (5) Atrial fibrillation Code(s): I48.91 - UNSPECIFIED ATRIAL FIBRILLATION Status: Chronic Qualifiers: Atrial fibrillation type: unspecified Qualified Code(s): I48.91 - Unspecified atrial fibrillation - Plan will continue current meds. awaiting placement. pt's rate controlled. No AC will change lasix to oral. awaiting placement. pt's rate is controlled not on any AC due to fall risk and bleeding. 05/29 pt's cxr no changes but her right lower lung effusion still persists. will give her one dose of iv lasix with albumin to help with her bp. 05/30 pt has cirrhosis and will continue to have accumulation of fluid. Her cxr has pleural effusion to her lower lungs R>L. unfortunately this will reaccumulate given her hx of cirrhosis. She is on abx. Abd ultrasound no fluid. will continue iv diuretics. She has been refusing to get up and move around. I have put her on fluid restriction.
[2019-05-30] MEDS: Tamsulosin HCl 0.4 MG CAP PO SCH (21:03)
[2019-05-31] MEDS: Budesonide 0.5 MG/2 ML NEB NEB SCH ×2 (06:56→18:36)
[2019-05-31 08:52] LABS: #Lymphocytes 0.3 thou/uL (1.20-3.40); #Monocytes 1.2 thou/uL (0.11-0.59); %Basophils 0.2 % (0.0-1.0); %Eosinophils 0.2 % (0.0-10.0); %Lymphocytes 3.3 % (21.0-51.0); %Monocytes 10.9 % (0.0-10.0); %Neutrophils 85.4 % (42.0-75.0); Hemoglobin 9.8 g/dL (12.0-16.0); Mean Corpuscular HGB CONC 30.9 g/dL (32.0-36.0); Mean Corpuscular Hemoglobin 31.2 pg (27.0-31.0); Mean Platelet Volume 7.8 fL (7.4-10.4); Platelet Count 82 thou/uL (130-400); RBC Distribution Width 17.5 % (11.5-14.5); Red Blood Cell (RBC) Count 3.16 mill/uL (4.20-5.40); White Blood Cell (WBC) Count 10.5 thou/uL (4.8-10.8)
[2019-05-31] MEDS: Cefuroxime Axetil 250 MG TAB PO SCH ×2 (08:55→20:51)
[2019-05-31] MEDS: Rifaximin 550 MG TAB PO SCH ×2 (08:55→20:51)
[2019-05-31] MEDS: Torsemide 20 MG TAB PO SCH (08:56)
[2019-05-31] MEDS: Multivit, Therapeutic 1 TAB PO SCH (08:56)
[2019-05-31] MEDS: Digoxin 0.125 MG TAB PO SCH (08:56)
[2019-05-31] MEDS: Spironolactone 100 MG TAB PO SCH (08:56)
[2019-05-31] MEDS: Enoxaparin Sodium 40 MG/0.4 ML SYRINGE SC SCH (09:36)
[2019-05-31] MEDS ORDERED: methylPREDNISolone Sod Succ 40 MG VIAL IVP SCH (11:00)
[2019-05-31] MEDS: Tamsulosin HCl 0.4 MG CAP PO SCH (20:51)
[2019-06-01 04:51] LABS: #Basophils 0.1 thou/uL (0.0-0.2); #Lymphocytes 0.3 thou/uL (1.20-3.40); #Monocytes 0.7 thou/uL (0.11-0.59); %Basophils 0.7 % (0.0-1.0); %Eosinophils 0.3 % (0.0-10.0); %Lymphocytes 3.1 % (21.0-51.0); %Monocytes 8.1 % (0.0-10.0); %Neutrophils 87.8 % (42.0-75.0); Hemoglobin 8.9 g/dL (12.0-16.0); MDiff Complete? YES; Mean Corpuscular HGB CONC 32.1 g/dL (32.0-36.0); Mean Corpuscular Hemoglobin 31.5 pg (27.0-31.0); Mean Platelet Volume 8.2 fL (7.4-10.4); Platelet Count 96 thou/uL (130-400); Platelet Morphology Comment Appears Decreased; RBC Distribution Width 17.6 % (11.5-14.5); Red Blood Cell (RBC) Count 2.84 mill/uL (4.20-5.40); Target Cells SLIGHT = 2-5 cells (100X) (0-1/hpf); White Blood Cell (WBC) Count 9.1 thou/uL (4.8-10.8)
[2019-06-01] MEDS: Budesonide 0.5 MG/2 ML NEB NEB SCH ×2 (07:18→18:44)
--- NOTE | 2019-06-01 07:33 | PDOC.HOSPP ---
- Subjective Encounter Date: 05/31/19 Encounter Time: 10:00 Subjective: pt up in chair today did well. He is still sob. she is on chronic oxygen. - Objective Vital Signs & Weight: Vital Signs (12 hours) Temp Pulse Resp BP Pulse Ox 06/01/19 07:19 97 06/01/19 07:18 85 16 97 06/01/19 03:19 97.6 F 85 20 112/51 L 96 06/01/19 01:43 92 16 99 05/31/19 22:02 90 20 98 Weight Admit Weight 162 lb 6.4 oz Weight 169 lb 11.2 oz I&O: 05/31/19 06/01/19 06/02/19 06:59 06:59 06:59 Intake Total 1080 1090 Output Total 600 1425 Balance 480 -335 Result Diagrams: 06/01/19 03:35 05/30/19 04:29 Hospitalist ROS - Review of Systems Cardiovascular: denies: chest pain, palpitations, orthopnea, paroxysmal noc. dyspnea, edema, light headedness, other Gastrointestinal: denies: nausea, vomiting, abdominal pain, diarrhea, constipation, melena, hematochezia, other Genitourinary: denies: dysuria, frequency, incontinence, hematuria, retention, other - Medication Medications: Active Medications Generic Name Dose Route Start Last Admin Trade Name Freq PRN Reason Stop Dose Admin Acetaminophen 650 mg 05/19/19 21:50 05/28/19 15:31 Tylenol PO 650 mg Q4H PRN Administration Headache/Fever/Mild Pain (1-3) Albuterol/Ipratropium 3 ml 05/21/19 02:30 06/01/19 07:18 Duoneb NEB 3 ml [id number] JASON Administration Budesonide 0.5 mg 05/20/19 06:30 06/01/19 07:18 Pulmicort Neb Solution NEB 0.5 mg BID-RT JASON Administration Cefuroxime Axetil 250 mg 05/24/19 21:00 05/31/19 20:51 Ceftin PO 250 mg Q12HR JASON Administration Cholecalciferol 1,000 units 05/20/19 09:00 05/31/19 08:56 Vitamin D3 PO 1,000 units DAILY JASON Administration Digoxin 0.125 mg 05/23/19 09:00 05/31/19 08:56 Lanoxin PO 0.125 mg DAILY JASON Administration Diltiazem HCl 30 mg 05/22/19 14:00 06/01/19 06:04 Cardizem PO 30 mg Q8HR JASON Administration Enoxaparin Sodium 40 mg 05/20/19 09:00 05/31/19 09:36 Lovenox SC Not Given 0900 [facility] Ipratropium [place] 2.5 ml 05/19/19 23:02 05/20/19 23:38 Atrovent NEB 2.5 ml [id number] PRN Administration SOB &/or Wheezing Lactulose 10 gm 05/20/19 09:00 05/31/19 20:50 Lactulose PO 10 gm BID JASON Administration Multivitamins 1 tab 05/20/19 09:00 05/31/19 08:56 Theragran PO 1 tab DAILY JASON Administration Pantoprazole Sodium 40 mg 05/20/19 09:00 05/31/19 08:56 Protonix PO 40 mg DAILY JASON Administration Rifaximin 550 mg 05/23/19 09:00 05/31/19 20:51 Xifaxan PO 550 mg BID JASON Administration Sodium Chloride 10 ml 05/20/19 21:00 05/31/19 20:51 Flush - Normal Saline IVF 10 ml Q12HR JASON Administration Spironolactone 100 mg 05/20/19 08:00 05/31/19 08:56 Aldactone PO 100 mg QAM-WM JASON Administration Tamsulosin HCl 0.4 mg 05/20/19 21:00 05/31/19 20:51 Flomax PO 0.4 mg HS JASON Administration Torsemide 20 mg 05/31/19 09:00 05/31/19 08:56 Demadex PO 20 mg DAILY JASON Administration - Exam Heart: negative: RRR, no murmur, no gallops, no rubs, normal peripheral pulses, irregular, diminshed peripheral pulses, murmur present, II/IV, III/IV Respiratory: rhonchi, wheezes Gastrointestinal: negative: soft, non-tender, non-distended, normal bowel sounds , no palpable masses, no hepatomegaly, no splenomegaly, no bruit, no guarding, no rigidity, tender to palpation, distended, diminished bowl sounds, voluntary guarding Extremities: 1+ LE edema Hosp A/P (1) Acute respiratory failure with hypoxemia Code(s): J96.01 - ACUTE RESPIRATORY FAILURE WITH HYPOXIA Status: Acute (2) CHF (congestive heart failure) Code(s): I50.9 - HEART FAILURE, UNSPECIFIED Status: Acute (3) Alcoholic cirrhosis of liver Code(s): K70.30 - ALCOHOLIC CIRRHOSIS OF LIVER WITHOUT ASCITES Status: Acute (4) Liver cirrhosis Code(s): K74.60 - UNSPECIFIED CIRRHOSIS OF LIVER Status: Acute (5) Atrial fibrillation Code(s): I48.91 - UNSPECIFIED ATRIAL FIBRILLATION Status: Chronic Qualifiers: Atrial fibrillation type: unspecified Qualified Code(s): I48.91 - Unspecified atrial fibrillation - Plan will continue current meds. awaiting placement. pt's rate controlled. No AC will change lasix to oral. awaiting placement. pt's rate is controlled not on any AC due to fall risk and bleeding. 05/29 pt's cxr no changes but her right lower lung effusion still persists. will give her one dose of iv lasix with albumin to help with her bp. 05/30 pt has cirrhosis and will continue to have accumulation of fluid. Her cxr has pleural effusion to her lower lungs R>L. unfortunately this will reaccumulate given her hx of cirrhosis. She is on abx. Abd ultrasound no fluid. will continue iv diuretics. She has been refusing to get up and move around. I have put her on fluid restriction. 05/31 will continue to watch her for one more day. if labs stable she will be discharged to snf in am
[2019-06-01] MEDS: Digoxin 0.125 MG TAB PO SCH (08:45)
[2019-06-01] MEDS: Cefuroxime Axetil 250 MG TAB PO SCH ×2 (08:45→21:50)
[2019-06-01] MEDS: Rifaximin 550 MG TAB PO SCH ×2 (08:46→21:50)
[2019-06-01] MEDS: Multivit, Therapeutic 1 TAB PO SCH (08:46)
[2019-06-01] MEDS: Torsemide 20 MG TAB PO SCH (08:46)
[2019-06-01] MEDS: Enoxaparin Sodium 40 MG/0.4 ML SYRINGE SC SCH (08:46)
[2019-06-01] MEDS: Spironolactone 100 MG TAB PO SCH (08:48)
[2019-06-01 09:33] LABS: ALT (SGPT) 29 U/L (8-55); AST (SGOT) 38 U/L (5-34); Albumin 2.8 g/dL (3.4-4.8); Alkaline Phosphatase 149 U/L (40-110); Anion Gap 8 mmol/L (10-20); BUN (Urea Nitrogen) 33 mg/dL (9.8-20.1); Bilirubin, Total 3.3 mg/dL (0.2-1.2); Calc. Creatinine Clearance 68 mL/min (70-130); Calcium 9.5 mg/dL (7.8-10.44); Carbon Dioxide 34 mmol/L (23-31); Chloride 87 mmol/L (98-107); Estimated GFR-MDRD 63; Globulin 3.3 g/dL (2.4-3.5); Glucose 256 mg/dL (83-110); Potassium 5.2 mmol/L (3.5-5.1); Protein, Total 6.1 g/dL (6.0-8.3); Sodium 124 mmol/L (136-145)
[2019-06-01] MEDS ORDERED: methylPREDNISolone Sod Succ/PF 125 MG/2 ML VIAL IVP SCH (10:45)
--- NOTE | 2019-06-01 11:03 | RAD ---
Exam: Chest one view HISTORY:Shortness of breath Comparison: 05/29/2019 FINDINGS: Cardiac silhouette:Persistent cardiomegaly. Aorta: Unremarkable Pulmonary vessels: Normal Costophrenic angles: Small right-sided pleural effusion. LUNGS: Diffuse interstitial and alveolar opacities. Elevation the right hemidiaphragm. Pneumothorax: None Osseous abnormalities: None IMPRESSION: No significant interval change. Correlate for congestive heart failure.
[2019-06-01] MEDS: Tamsulosin HCl 0.4 MG CAP PO SCH (21:50)
--- NOTE | 2019-06-02 06:24 | PDOC.HOSPP ---
- Subjective Encounter Date: 06/01/19 Encounter Time: 09:45 Subjective: pt up in bed still very sob - Objective Vital Signs & Weight: Vital Signs (12 hours) Temp Pulse Resp BP Pulse Ox 06/02/19 04:00 97.5 F L 89 24 H 109/53 L 93 L 06/02/19 02:26 92 24 H 96 06/01/19 22:06 94 24 H 97 06/01/19 20:14 97.9 F 104 H 22 H 125/59 L 96 06/01/19 18:43 103 H 28 H 94 L Weight Admit Weight 162 lb 6.4 oz Weight 172 lb 4.8 oz I&O: 05/31/19 06/01/19 06/02/19 06:59 06:59 06:59 Intake Total 1080 1090 1000 Output Total 600 1425 1475 Balance 848 -443 -349 Result Diagrams: 06/01/19 03:35 06/01/19 08:36 Hospitalist ROS - Review of Systems Respiratory: reports: shortness of breath Cardiovascular: denies: chest pain, palpitations, orthopnea, paroxysmal noc. dyspnea, edema, light headedness, other Gastrointestinal: denies: nausea, vomiting, abdominal pain, diarrhea, constipation, melena, hematochezia, other - Medication Medications: Active Medications Generic Name Dose Route Start Last Admin Trade Name Freq PRN Reason Stop Dose Admin Acetaminophen 650 mg 05/19/19 21:50 05/28/19 15:31 Tylenol PO 650 mg Q4H PRN Administration Headache/Fever/Mild Pain (1-3) Albuterol/Ipratropium 3 ml 05/21/19 02:30 06/02/19 02:26 Duoneb NEB 3 ml [id number] JASON Administration Budesonide 0.5 mg 05/20/19 06:30 06/01/19 18:44 Pulmicort Neb Solution NEB 0.5 mg BID-RT JASON Administration Cefuroxime Axetil 250 mg 05/24/19 21:00 06/01/19 21:50 Ceftin PO 250 mg Q12HR JASON Administration Cholecalciferol 1,000 units 05/20/19 09:00 06/01/19 08:45 Vitamin D3 PO 1,000 units DAILY JASON Administration Digoxin 0.125 mg 05/23/19 09:00 06/01/19 08:45 Lanoxin PO 0.125 mg DAILY JASON Administration Diltiazem HCl 30 mg 05/22/19 14:00 06/02/19 06:01 Cardizem PO 30 mg Q8HR JASON Administration Enoxaparin Sodium 40 mg 05/20/19 09:00 06/01/19 08:46 Lovenox SC 40 mg 0900 JASON Administration Ipratropium [place] 2.5 ml 05/19/19 23:02 05/20/19 23:38 Atrovent NEB 2.5 ml [id number] PRN Administration SOB &/or Wheezing Lactulose 10 gm 05/20/19 09:00 06/01/19 21:49 Lactulose PO 10 gm BID JASON Administration Multivitamins 1 tab 05/20/19 09:00 06/01/19 08:46 Theragran PO 1 tab DAILY JASON Administration Pantoprazole Sodium 40 mg 05/20/19 09:00 06/01/19 08:46 Protonix PO 40 mg DAILY JASON Administration Rifaximin 550 mg 05/23/19 09:00 06/01/19 21:50 Xifaxan PO 550 mg BID JASON Administration Sodium Chloride 10 ml 05/20/19 21:00 06/01/19 21:49 Flush - Normal Saline IVF 10 ml Q12HR JASON Administration Spironolactone 100 mg 05/20/19 08:00 06/01/19 08:48 Aldactone PO 100 mg QAM-WM JASON Administration Tamsulosin HCl 0.4 mg 05/20/19 21:00 06/01/19 21:50 Flomax PO 0.4 mg HS JASON Administration Torsemide 20 mg 05/31/19 09:00 06/01/19 08:46 Demadex PO 20 mg DAILY JASON Administration - Exam Neck: negative: supple, symmetric, no JVD, no thyromegaly, no lymphadenopathy, no carotid bruit, JVD Heart: negative: RRR, no murmur, no gallops, no rubs, normal peripheral pulses, irregular, diminshed peripheral pulses, murmur present, II/IV, III/IV Respiratory: negative: CTAB, no wheezes, no rales, no ronchi, normal chest expansion, no tachypnea, normal percussion, rales, rhonchi, tachypneic, wheezes Hosp A/P (1) Acute respiratory failure with hypoxemia Code(s): J96.01 - ACUTE RESPIRATORY FAILURE WITH HYPOXIA Status: Acute (2) CHF (congestive heart failure) Code(s): I50.9 - HEART FAILURE, UNSPECIFIED Status: Acute (3) Alcoholic cirrhosis of liver Code(s): K70.30 - ALCOHOLIC CIRRHOSIS OF LIVER WITHOUT ASCITES Status: Acute (4) Liver cirrhosis Code(s): K74.60 - UNSPECIFIED CIRRHOSIS OF LIVER Status: Acute (5) Atrial fibrillation Code(s): I48.91 - UNSPECIFIED ATRIAL FIBRILLATION Status: Chronic Qualifiers: Atrial fibrillation type: unspecified Qualified Code(s): I48.91 - Unspecified atrial fibrillation - Plan will continue current meds. awaiting placement. pt's rate controlled. No AC will change lasix to oral. awaiting placement. pt's rate is controlled not on any AC due to fall risk and bleeding. 05/29 pt's cxr no changes but her right lower lung effusion still persists. will give her one dose of iv lasix with albumin to help with her bp. 05/30 pt has cirrhosis and will continue to have accumulation of fluid. Her cxr has pleural effusion to her lower lungs R>L. unfortunately this will reaccumulate given her hx of cirrhosis. She is on abx. Abd ultrasound no fluid. will continue iv diuretics. She has been refusing to get up and move around. I have put her on fluid restriction. 05/31 will continue to watch her for one more day. if labs stable she will be discharged to snf in am 06/01 pt very sob called her son to discuss her case. He states that she was never on oxygen few months ago. pt has been living independently prior to all her admits. will get thoracentesis to see if this helps her sob. I have limited her oral intake, given her iv lasix with zaroxolyn multiple times without any relief. Her abd ultrasound no ascites. I am hoping thoracentesis will help. I did tell the son that the fluid can reaccumulate.
[2019-06-02] MEDS: Budesonide 0.5 MG/2 ML NEB NEB SCH ×2 (07:02→18:23)
[2019-06-02] MEDS: Digoxin 0.125 MG TAB PO SCH (08:26)
[2019-06-02] MEDS: Spironolactone 100 MG TAB PO SCH (08:27)
[2019-06-02] MEDS: Enoxaparin Sodium 40 MG/0.4 ML SYRINGE SC SCH (08:27)
[2019-06-02] MEDS: Multivit, Therapeutic 1 TAB PO SCH (08:27)
[2019-06-02] MEDS: Cefuroxime Axetil 250 MG TAB PO SCH (08:27)
[2019-06-02] MEDS: Rifaximin 550 MG TAB PO SCH ×2 (08:27→20:41)
[2019-06-02] MEDS: Torsemide 20 MG TAB PO SCH (08:27)
[2019-06-02] MEDS ORDERED: predniSONE 20 MG TAB PO SCH (10:45)
[2019-06-02 11:46] LABS: Anion Gap 12 mmol/L (10-20); BUN (Urea Nitrogen) 44 mg/dL (9.8-20.1); Calc. Creatinine Clearance 58 mL/min (70-130); Calcium 9.6 mg/dL (7.8-10.44); Carbon Dioxide 31 mmol/L (23-31); Chloride 88 mmol/L (98-107); Estimated GFR-MDRD 51; Glucose 274 mg/dL (83-110); Potassium 5.6 mmol/L (3.5-5.1); Sodium 125 mmol/L (136-145)
[2019-06-02] MEDS ORDERED: Spironolactone 100 MG TAB PO SCH (12:41)
[2019-06-02] MEDS ORDERED: Calcium Gluconate 4.6 MEQ in Sodium Chloride 0.9% 100 ML IVPB SCH (12:43)
[2019-06-02] MEDS ORDERED: Insulin Glargine 5 UNITS in Pre-Filled Syringe 1 EACH SC SCH (12:45)
[2019-06-02] MEDS ORDERED: HumaLOG 300 UNITS/3 ML VIAL SC SCH (13:00)
[2019-06-02] MEDS ORDERED: Albuterol Sulfate 2.5 mg/3 ml Neb NEB SCH (13:30)
--- NOTE | 2019-06-02 14:31 | PDOC.HOSPP ---
- Subjective Encounter Date: 06/02/19 Encounter Time: 10:00 Subjective: pt up in bed no complains but her k is very high. - Objective Vital Signs & Weight: Vital Signs (12 hours) Temp Pulse Resp BP Pulse Ox 06/02/19 13:36 87 16 95 06/02/19 11:22 97.9 F 86 17 106/52 L 93 L 06/02/19 10:23 86 22 H 95 06/02/19 07:30 97.9 F 92 20 120/55 L 94 L 06/02/19 07:05 94 L 06/02/19 07:04 93 20 94 L 06/02/19 07:02 93 20 94 L 06/02/19 04:00 97.5 F L 89 24 H 109/53 L 93 L Weight Admit Weight 162 lb 6.4 oz Weight 172 lb 4.8 oz I&O: 06/01/19 06/02/19 06/03/19 06:59 06:59 06:59 Intake Total 1090 1000 Output Total 1425 1475 Balance -335 -475 Result Diagrams: 06/04/19 06:34 06/04/19 06:34 Hospitalist ROS - Review of Systems Cardiovascular: denies: chest pain, palpitations, orthopnea, paroxysmal noc. dyspnea, edema, light headedness, other Gastrointestinal: denies: nausea, vomiting, abdominal pain, diarrhea, constipation, melena, hematochezia, other - Medication Medications: Active Medications Generic Name Dose Route Start Last Admin Trade Name Freq PRN Reason Stop Dose Admin Acetaminophen 650 mg 05/19/19 21:50 05/28/19 15:31 Tylenol PO 650 mg Q4H PRN Administration Headache/Fever/Mild Pain (1-3) Albuterol Sulfate 10 mg 06/02/19 13:30 06/02/19 13:36 Ventolin NEB 06/02/19 15:00 10 mg NOW JASON Administration Albuterol/Ipratropium 3 ml 05/21/19 02:30 06/02/19 13:42 Duoneb NEB Not Given [id number] JASON Budesonide 0.5 mg 05/20/19 06:30 06/02/19 07:02 Pulmicort Neb Solution NEB 0.5 mg BID-RT JASON Administration Cefuroxime Axetil 250 mg 05/24/19 21:00 06/02/19 08:27 Ceftin PO 250 mg Q12HR JASON Administration Cholecalciferol 1,000 units 05/20/19 09:00 06/02/19 08:27 Vitamin D3 PO 1,000 units DAILY JASON Administration Digoxin 0.125 mg 05/23/19 09:00 06/02/19 08:26 Lanoxin PO 0.125 mg DAILY JASON Administration Diltiazem HCl 30 mg 05/22/19 14:00 06/02/19 13:30 Cardizem PO 30 mg Q8HR JASON Administration Enoxaparin Sodium 40 mg 05/20/19 09:00 06/02/19 08:27 Lovenox SC Not Given 09 [facility] Calcium Gluconate 4.6 meq/ 110 mls @ 200 mls/hr 06/02/19 12:43 06/02/19 13:39 Sodium Chloride IVPB 06/02/19 14:43 110 mls NOW JASON Administration Insulin Human Lispro 6 units 06/02/19 13:00 06/02/19 13:40 Humalog SC 06/02/19 15:00 6 unit NOW JASON Administration Ipratropium [place] 2.5 ml 05/19/19 23:02 05/20/19 23:38 Atrovent NEB 2.5 ml [id number] PRN Administration SOB &/or Wheezing Lactulose 10 gm 05/20/19 09:00 06/02/19 08:28 Lactulose PO Not Given BID [facility] Multivitamins 1 tab 05/20/19 09:00 06/02/19 08:27 Theragran PO 1 tab DAILY JASON Administration Pantoprazole Sodium 40 mg 05/20/19 09:00 06/02/19 08:27 Protonix PO 40 mg DAILY JASON Administration Rifaximin 550 mg 05/23/19 09:00 06/02/19 08:27 Xifaxan PO 550 mg BID JASON Administration Sodium Chloride 10 ml 05/20/19 21:00 06/02/19 08:28 Flush - Normal Saline IVF 10 ml Q12HR JASON Administration Sodium Polystyrene Sulfonate 15 gm 06/02/19 12:45 06/02/19 13:29 Kayexalate Oral Susp 15 Gm/60 Ml PO 06/02/19 14:45 15 gm NOW JASON Administration Tamsulosin HCl 0.4 mg 05/20/19 21:00 06/01/19 21:50 Flomax PO 0.4 mg HS JASON Administration Torsemide 20 mg 05/31/19 09:00 06/02/19 08:27 Demadex PO 20 mg DAILY JASON Administration - Exam Heart: negative: RRR, no murmur, no gallops, no rubs, normal peripheral pulses, irregular, diminshed peripheral pulses, murmur present, II/IV, III/IV Respiratory: negative: CTAB, no wheezes, no rales, no ronchi, normal chest expansion, no tachypnea, normal percussion, rales, rhonchi, tachypneic, wheezes Gastrointestinal: negative: soft, non-tender, non-distended, normal bowel sounds , no palpable masses, no hepatomegaly, no splenomegaly, no bruit, no guarding, no rigidity, tender to palpation, distended, diminished bowl sounds, voluntary guarding Hosp A/P (1) Acute respiratory failure with hypoxemia Code(s): J96.01 - ACUTE RESPIRATORY FAILURE WITH HYPOXIA Status: Acute (2) CHF (congestive heart failure) Code(s): I50.9 - HEART FAILURE, UNSPECIFIED Status: Acute (3) Alcoholic cirrhosis of liver Code(s): K70.30 - ALCOHOLIC CIRRHOSIS OF LIVER WITHOUT ASCITES Status: Acute (4) Liver cirrhosis Code(s): K74.60 - UNSPECIFIED CIRRHOSIS OF LIVER Status: Acute (5) Atrial fibrillation Code(s): I48.91 - UNSPECIFIED ATRIAL FIBRILLATION Status: Chronic Qualifiers: Atrial fibrillation type: unspecified Qualified Code(s): I48.91 - Unspecified atrial fibrillation - Plan will continue current meds. awaiting placement. pt's rate controlled. No AC will change lasix to oral. awaiting placement. pt's rate is controlled not on any AC due to fall risk and bleeding. 05/29 pt's cxr no changes but her right lower lung effusion still persists. will give her one dose of iv lasix with albumin to help with her bp. 05/30 pt has cirrhosis and will continue to have accumulation of fluid. Her cxr has pleural effusion to her lower lungs R>L. unfortunately this will reaccumulate given her hx of cirrhosis. She is on abx. Abd ultrasound no fluid. will continue iv diuretics. She has been refusing to get up and move around. I have put her on fluid restriction. 05/31 will continue to watch her for one more day. if labs stable she will be discharged to snf in am 06/01 pt very sob called her son to discuss her case. He states that she was never on oxygen few months ago. pt has been living independently prior to all her admits. will get thoracentesis to see if this helps her sob. I have limited her oral intake, given her iv lasix with zaroxolyn multiple times without any relief. Her abd ultrasound no ascites. I am hoping thoracentesis will help. I did tell the son that the fluid can reaccumulate. 06/02 pt given hyperkalemia tx, k sparing diuretic stopped. will keep her over this weekend. son updated. pt's bun is high. will hold loop diuretic.
[2019-06-02 15:01] LABS: Anion Gap 11 mmol/L (10-20); BUN (Urea Nitrogen) 45 mg/dL (9.8-20.1); Calc. Creatinine Clearance 54 mL/min (70-130); Calcium 9.6 mg/dL (7.8-10.44); Carbon Dioxide 32 mmol/L (23-31); Chloride 87 mmol/L (98-107); Estimated GFR-MDRD 47; Glucose 281 mg/dL (83-110); Potassium 5.4 mmol/L (3.5-5.1); Sodium 125 mmol/L (136-145)
[2019-06-02] MEDS ORDERED: Dextrose 5% in Water 1,000 ML IV PRN (16:10)
[2019-06-02] MEDS ORDERED: Dextrose 50% Abboject 50 ML SYRINGE SLOW IVP PRN (16:10)
[2019-06-02] MEDS ORDERED: Sodium Chloride 0.9% 500 ML IV SCH (16:15)
[2019-06-02] MEDS: Insulin Regular 300 UNITS/3 ML VIAL SC PRN ×2 (16:50→20:48)
[2019-06-02 19:00] LABS: #Lymphocytes 0.2 thou/uL (1.20-3.40); #Monocytes 0.8 thou/uL (0.11-0.59); #Neutrophils 8.5 thou/uL (1.40-6.50); %Basophils 0.1 % (0.0-1.0); %Eosinophils 0.1 % (0.0-10.0); %Lymphocytes 1.6 % (21.0-51.0); %Monocytes 8.4 % (0.0-10.0); %Neutrophils 89.9 % (42.0-75.0); Hemoglobin 9.2 g/dL (12.0-16.0); Mean Corpuscular Hemoglobin 31.4 pg (27.0-31.0); Mean Corpuscular Volume 98.1 fL (78.0-98.0); Mean Platelet Volume 7.7 fL (7.4-10.4); Platelet Count 88 thou/uL (130-400); RBC Distribution Width 17.5 % (11.5-14.5); Red Blood Cell (RBC) Count 2.92 mill/uL (4.20-5.40); White Blood Cell (WBC) Count 9.4 thou/uL (4.8-10.8)
[2019-06-02 19:23] LABS: Anion Gap 11 mmol/L (10-20); BUN (Urea Nitrogen) 47 mg/dL (9.8-20.1); Calc. Creatinine Clearance 53 mL/min (70-130); Calcium 9.6 mg/dL (7.8-10.44); Carbon Dioxide 33 mmol/L (23-31); Chloride 87 mmol/L (98-107); Estimated GFR-MDRD 47; Glucose 276 mg/dL (83-110); Potassium 5.1 mmol/L (3.5-5.1); Sodium 126 mmol/L (136-145)
[2019-06-02] MEDS: Tamsulosin HCl 0.4 MG CAP PO SCH (20:42)
[2019-06-03 04:55] LABS: #Lymphocytes 0.3 thou/uL (1.20-3.40); #Neutrophils 8.2 thou/uL (1.40-6.50); %Lymphocytes 2.8 % (21.0-51.0); %Neutrophils 86.2 % (42.0-75.0); Hemoglobin 8.7 g/dL (12.0-16.0); Mean Corpuscular HGB CONC 32.8 g/dL (32.0-36.0); Mean Corpuscular Hemoglobin 31.9 pg (27.0-31.0); Mean Platelet Volume 7.9 fL (7.4-10.4); Platelet Count 82 thou/uL (130-400); RBC Distribution Width 17.5 % (11.5-14.5); Red Blood Cell (RBC) Count 2.74 mill/uL (4.20-5.40); White Blood Cell (WBC) Count 9.5 thou/uL (4.8-10.8)
[2019-06-03 05:27] LABS: Anion Gap 9 mmol/L (10-20); BUN (Urea Nitrogen) 51 mg/dL (9.8-20.1); Calc. Creatinine Clearance 57 mL/min (70-130); Calcium 9.5 mg/dL (7.8-10.44); Carbon Dioxide 35 mmol/L (23-31); Chloride 87 mmol/L (98-107); Estimated GFR-MDRD 51; Glucose 158 mg/dL (83-110); Potassium 5.2 mmol/L (3.5-5.1); Sodium 126 mmol/L (136-145)
[2019-06-03] MEDS: Budesonide 0.5 MG/2 ML NEB NEB SCH ×2 (06:59→18:45)
[2019-06-03] MEDS ORDERED: predniSONE 20 MG TAB PO SCH (08:00)
[2019-06-03] MEDS: Multivit, Therapeutic 1 TAB PO SCH (09:23)
[2019-06-03] MEDS: Enoxaparin Sodium 40 MG/0.4 ML SYRINGE SC SCH (09:23)
[2019-06-03] MEDS: Aspirin 81 mg Enteric Coated Tablet PO SCH (09:23)
[2019-06-03] MEDS: Rifaximin 550 MG TAB PO SCH ×2 (09:23→21:26)
[2019-06-03] MEDS: Digoxin 0.125 MG TAB PO SCH (09:23)
[2019-06-03] MEDS ORDERED: methylPREDNISolone Sod Succ 40 MG VIAL IVP SCH (09:30)
[2019-06-03] MEDS: Insulin Regular 300 UNITS/3 ML VIAL SC PRN ×3 (11:26→22:34)
[2019-06-03] MEDS: Tamsulosin HCl 0.4 MG CAP PO SCH (21:26)
[2019-06-04 06:47] LABS: #Lymphocytes 0.2 thou/uL (1.20-3.40); #Monocytes 0.9 thou/uL (0.11-0.59); %Eosinophils 0.1 % (0.0-10.0); %Lymphocytes 2.8 % (21.0-51.0); %Monocytes 10.8 % (0.0-10.0); %Neutrophils 86.3 % (42.0-75.0); Hemoglobin 8.9 g/dL (12.0-16.0); Mean Corpuscular HGB CONC 31.9 g/dL (32.0-36.0); Mean Corpuscular Hemoglobin 31.2 pg (27.0-31.0); Mean Corpuscular Volume 97.8 fL (78.0-98.0); Mean Platelet Volume 7.6 fL (7.4-10.4); Platelet Count 66 thou/uL (130-400); RBC Distribution Width 17.4 % (11.5-14.5); Red Blood Cell (RBC) Count 2.83 mill/uL (4.20-5.40); White Blood Cell (WBC) Count 8.1 thou/uL (4.8-10.8)
[2019-06-04] MEDS: Budesonide 0.5 MG/2 ML NEB NEB SCH ×2 (07:05→19:26)
[2019-06-04 07:07] LABS: Anion Gap 9 mmol/L (10-20); BUN (Urea Nitrogen) 61 mg/dL (9.8-20.1); Calc. Creatinine Clearance 55 mL/min (70-130); Carbon Dioxide 36 mmol/L (23-31); Chloride 89 mmol/L (98-107); Estimated GFR-MDRD 49; Glucose 209 mg/dL (83-110); Sodium 129 mmol/L (136-145)
[2019-06-04] MEDS: Aspirin 81 mg Enteric Coated Tablet PO SCH (08:08)
[2019-06-04] MEDS: Digoxin 0.125 MG TAB PO SCH (08:08)
[2019-06-04] MEDS: Rifaximin 550 MG TAB PO SCH ×2 (08:09→20:38)
[2019-06-04] MEDS: Multivit, Therapeutic 1 TAB PO SCH (08:09)
[2019-06-04] MEDS ORDERED: Enoxaparin Sodium 40 MG/0.4 ML SYRINGE SC SCH (09:00)
[2019-06-04] MEDS ORDERED: methylPREDNISolone Sod Succ 40 MG VIAL IVP SCH (09:00)
[2019-06-04] MEDS: HumaLOG 300 UNITS/3 ML VIAL SC PRN ×2 (11:26→17:22)
--- NOTE | 2019-06-04 14:42 | PDOC.HOSPP ---
- Subjective Encounter Date: 06/03/19 Encounter Time: 10:00 Subjective: pt up in bed still very sob. - Objective Vital Signs & Weight: Vital Signs (12 hours) Temp Pulse Resp BP Pulse Ox 06/04/19 11:30 97.5 F L 77 18 123/56 L 92 L 06/04/19 10:36 85 22 H 96 06/04/19 07:17 97.7 F 89 22 H 111/53 L 98 06/04/19 07:05 98 06/04/19 07:03 88 20 98 06/04/19 04:10 97.2 F L 93 22 H 132/58 L 92 L Weight Admit Weight 162 lb 6.4 oz Weight 171 lb 14.4 oz I&O: 06/03/19 06/04/19 06/05/19 06:59 06:59 06:59 Intake Total 1420 1450 Output Total 1150 650 Balance 270 800 Result Diagrams: 06/04/19 06:34 06/04/19 06:34 Additional Labs: Accuchecks 06/04/19 06/04/19 06/03/19 11:05 05:30 20:07 POC Glucose 351 H 235 H 344 H 06/03/19 17:25 POC Glucose 307 H Hospitalist ROS - Review of Systems Respiratory: reports: shortness of breath Cardiovascular: denies: chest pain, palpitations, orthopnea, paroxysmal noc. dyspnea, edema, light headedness, other Gastrointestinal: denies: nausea, vomiting, abdominal pain, diarrhea, constipation, melena, hematochezia, other - Medication Medications: Active Medications Generic Name Dose Route Start Last Admin Trade Name Shortyq PRN Reason Stop Dose Admin Acetaminophen 650 mg 05/19/19 21:50 05/28/19 15:31 Tylenol PO 650 mg Q4H PRN Administration Headache/Fever/Mild Pain (1-3) Albuterol/Ipratropium 3 ml 05/21/19 02:30 06/04/19 10:36 Duoneb NEB 3 ml [id number] JASON Administration Aspirin 81 mg 06/03/19 09:00 06/04/19 08:08 Ecotrin PO 81 mg DAILY JASON Administration Budesonide 0.5 mg 05/20/19 06:30 06/04/19 07:05 Pulmicort Neb Solution NEB 0.5 mg BID-RT JASON Administration Cholecalciferol 1,000 units 05/20/19 09:00 06/04/19 08:08 Vitamin D3 PO 1,000 units DAILY JASON Administration Digoxin 0.125 mg 05/23/19 09:00 06/04/19 08:08 Lanoxin PO 0.125 mg DAILY JASON Administration Diltiazem HCl 30 mg 05/22/19 14:00 06/04/19 14:34 Cardizem PO 30 mg Q8HR JASON Administration Enoxaparin Sodium 40 mg 06/04/19 09:00 06/04/19 08:09 Lovenox SC Not Given 0900 JASON Insulin Human Lispro 0 units 06/04/19 10:24 06/04/19 11:26 Humalog SC 10 unit .MODERATE SLIDING SC PRN Administration Moderate Correctional Scale Insulin Human Regular 0 units 06/03/19 22:24 06/03/19 22:34 Humulin R SC 4 unit .BEDTIME SLIDING SC PRN Administration Bedtime Correctional Scale Ipratropium [place] 2.5 ml 05/19/19 23:02 05/20/19 23:38 Atrovent NEB 2.5 ml [id number] PRN Administration SOB &/or Wheezing Lactulose 10 gm 05/20/19 09:00 06/04/19 08:08 Lactulose PO 10 gm BID JASON Administration Multivitamins 1 tab 05/20/19 09:00 06/04/19 08:09 Theragran PO 1 tab DAILY JASON Administration Pantoprazole Sodium 40 mg 05/20/19 09:00 06/04/19 08:09 Protonix PO 40 mg DAILY JASON Administration Rifaximin 550 mg 05/23/19 09:00 06/04/19 08:09 Xifaxan PO 550 mg BID JASON Administration Sodium Chloride 10 ml 05/20/19 21:00 06/04/19 08:10 Flush - Normal Saline IVF 10 ml Q12HR JASON Administration Sodium Chloride 10 ml 05/20/19 12:14 06/03/19 10:03 Flush - Normal Saline IVF 10 ml PRN PRN Administration Saline Flush Tamsulosin HCl 0.4 mg 05/20/19 21:00 06/03/19 21:26 Flomax PO 0.4 mg HS JASON Administration Torsemide 20 mg 05/31/19 09:00 06/02/19 08:27 Demadex PO 20 mg DAILY JASON Administration - Exam Neck: negative: supple, symmetric, no JVD, no thyromegaly, no lymphadenopathy, no carotid bruit, JVD Heart: negative: RRR, no murmur, no gallops, no rubs, normal peripheral pulses, irregular, diminshed peripheral pulses, murmur present, II/IV, III/IV Respiratory: rhonchi, wheezes Hosp A/P (1) Acute respiratory failure with hypoxemia Code(s): J96.01 - ACUTE RESPIRATORY FAILURE WITH HYPOXIA Status: Acute (2) CHF (congestive heart failure) Code(s): I50.9 - HEART FAILURE, UNSPECIFIED Status: Acute (3) Alcoholic cirrhosis of liver Code(s): K70.30 - ALCOHOLIC CIRRHOSIS OF LIVER WITHOUT ASCITES Status: Acute (4) Liver cirrhosis Code(s): K74.60 - UNSPECIFIED CIRRHOSIS OF LIVER Status: Acute (5) Atrial fibrillation Code(s): I48.91 - UNSPECIFIED ATRIAL FIBRILLATION Status: Chronic Qualifiers: Atrial fibrillation type: unspecified Qualified Code(s): I48.91 - Unspecified atrial fibrillation - Plan will continue current meds. awaiting placement. pt's rate controlled. No AC will change lasix to oral. awaiting placement. pt's rate is controlled not on any AC due to fall risk and bleeding. 05/29 pt's cxr no changes but her right lower lung effusion still persists. will give her one dose of iv lasix with albumin to help with her bp. 05/30 pt has cirrhosis and will continue to have accumulation of fluid. Her cxr has pleural effusion to her lower lungs R>L. unfortunately this will reaccumulate given her hx of cirrhosis. She is on abx. Abd ultrasound no fluid. will continue iv diuretics. She has been refusing to get up and move around. I have put her on fluid restriction. 05/31 will continue to watch her for one more day. if labs stable she will be discharged to snf in am 06/01 pt very sob called her son to discuss her case. He states that she was never on oxygen few months ago. pt has been living independently prior to all her admits. will get thoracentesis to see if this helps her sob. I have limited her oral intake, given her iv lasix with zaroxolyn multiple times without any relief. Her abd ultrasound no ascites. I am hoping thoracentesis will help. I did tell the son that the fluid can reaccumulate. 06/03 pt's k has improved she still has an elevated bun. her hh is at baseline. will monitor. she is on ppi. NO AC due to risk of fall. no dvt ppx due to low platelets. will order scd.
--- NOTE | 2019-06-04 14:48 | PDOC.HOSPP ---
- Subjective Encounter Date: 06/04/19 Encounter Time: 09:00 Subjective: pt up in bed feels better today. - Objective Vital Signs & Weight: Vital Signs (12 hours) Temp Pulse Resp BP Pulse Ox 06/04/19 11:30 97.5 F L 77 18 123/56 L 92 L 06/04/19 10:36 85 22 H 96 06/04/19 07:17 97.7 F 89 22 H 111/53 L 98 06/04/19 07:05 98 06/04/19 07:03 88 20 98 06/04/19 04:10 97.2 F L 93 22 H 132/58 L 92 L Weight Admit Weight 162 lb 6.4 oz Weight 171 lb 14.4 oz I&O: 06/03/19 06/04/19 06/05/19 06:59 06:59 06:59 Intake Total 1420 1450 Output Total 1150 650 Balance 270 800 Result Diagrams: 06/04/19 06:34 06/04/19 06:34 Additional Labs: Accuchecks 06/04/19 06/04/19 06/03/19 11:05 05:30 20:07 POC Glucose 351 H 235 H 344 H 06/03/19 17:25 POC Glucose 307 H Hospitalist ROS - Review of Systems Cardiovascular: denies: chest pain, palpitations, orthopnea, paroxysmal noc. dyspnea, edema, light headedness, other Gastrointestinal: denies: nausea, vomiting, abdominal pain, diarrhea, constipation, melena, hematochezia, other - Medication Medications: Active Medications Generic Name Dose Route Start Last Admin Trade Name Freq PRN Reason Stop Dose Admin Acetaminophen 650 mg 05/19/19 21:50 05/28/19 15:31 Tylenol PO 650 mg Q4H PRN Administration Headache/Fever/Mild Pain (1-3) Albuterol/Ipratropium 3 ml 05/21/19 02:30 06/04/19 10:36 Duoneb NEB 3 ml [id number] JASON Administration Aspirin 81 mg 06/03/19 09:00 06/04/19 08:08 Ecotrin PO 81 mg DAILY JASON Administration Budesonide 0.5 mg 05/20/19 06:30 06/04/19 07:05 Pulmicort Neb Solution NEB 0.5 mg BID-RT JASON Administration Cholecalciferol 1,000 units 05/20/19 09:00 06/04/19 08:08 Vitamin D3 PO 1,000 units DAILY JASON Administration Digoxin 0.125 mg 05/23/19 09:00 06/04/19 08:08 Lanoxin PO 0.125 mg DAILY JASON Administration Diltiazem HCl 30 mg 05/22/19 14:00 06/04/19 14:34 Cardizem PO 30 mg Q8HR JASON Administration Enoxaparin Sodium 40 mg 06/04/19 09:00 06/04/19 08:09 Lovenox SC Not Given 0900 JASON Insulin Human Lispro 0 units 06/04/19 10:24 06/04/19 11:26 Humalog SC 10 unit .MODERATE SLIDING SC PRN Administration Moderate Correctional Scale Insulin Human Regular 0 units 06/03/19 22:24 06/03/19 22:34 Humulin R SC 4 unit .BEDTIME SLIDING SC PRN Administration Bedtime Correctional Scale Ipratropium [place] 2.5 ml 05/19/19 23:02 05/20/19 23:38 Atrovent NEB 2.5 ml [id number] PRN Administration SOB &/or Wheezing Lactulose 10 gm 05/20/19 09:00 06/04/19 08:08 Lactulose PO 10 gm BID JASON Administration Multivitamins 1 tab 05/20/19 09:00 06/04/19 08:09 Theragran PO 1 tab DAILY JASON Administration Pantoprazole Sodium 40 mg 05/20/19 09:00 06/04/19 08:09 Protonix PO 40 mg DAILY JASON Administration Rifaximin 550 mg 05/23/19 09:00 06/04/19 08:09 Xifaxan PO 550 mg BID JASON Administration Sodium Chloride 10 ml 05/20/19 21:00 06/04/19 08:10 Flush - Normal Saline IVF 10 ml Q12HR JASON Administration Sodium Chloride 10 ml 05/20/19 12:14 06/03/19 10:03 Flush - Normal Saline IVF 10 ml PRN PRN Administration Saline Flush Tamsulosin HCl 0.4 mg 05/20/19 21:00 06/03/19 21:26 Flomax PO 0.4 mg HS JASON Administration Torsemide 20 mg 05/31/19 09:00 06/02/19 08:27 Demadex PO 20 mg DAILY JASON Administration - Exam Neck: negative: supple, symmetric, no JVD, no thyromegaly, no lymphadenopathy, no carotid bruit, JVD Heart: negative: RRR, no murmur, no gallops, no rubs, normal peripheral pulses, irregular, diminshed peripheral pulses, murmur present, II/IV, III/IV Respiratory: negative: CTAB, no wheezes, no rales, no ronchi, normal chest expansion, no tachypnea, normal percussion, rales, rhonchi, tachypneic, wheezes Hosp A/P (1) Acute respiratory failure with hypoxemia Code(s): J96.01 - ACUTE RESPIRATORY FAILURE WITH HYPOXIA Status: Acute (2) CHF (congestive heart failure) Code(s): I50.9 - HEART FAILURE, UNSPECIFIED Status: Acute (3) Alcoholic cirrhosis of liver Code(s): K70.30 - ALCOHOLIC CIRRHOSIS OF LIVER WITHOUT ASCITES Status: Acute (4) Liver cirrhosis Code(s): K74.60 - UNSPECIFIED CIRRHOSIS OF LIVER Status: Acute (5) Atrial fibrillation Code(s): I48.91 - UNSPECIFIED ATRIAL FIBRILLATION Status: Chronic Qualifiers: Atrial fibrillation type: unspecified Qualified Code(s): I48.91 - Unspecified atrial fibrillation - Plan will continue current meds. awaiting placement. pt's rate controlled. No AC will change lasix to oral. awaiting placement. pt's rate is controlled not on any AC due to fall risk and bleeding. 05/29 pt's cxr no changes but her right lower lung effusion still persists. will give her one dose of iv lasix with albumin to help with her bp. 05/30 pt has cirrhosis and will continue to have accumulation of fluid. Her cxr has pleural effusion to her lower lungs R>L. unfortunately this will reaccumulate given her hx of cirrhosis. She is on abx. Abd ultrasound no fluid. will continue iv diuretics. She has been refusing to get up and move around. I have put her on fluid restriction. 05/31 will continue to watch her for one more day. if labs stable she will be discharged to snf in am 06/01 pt very sob called her son to discuss her case. He states that she was never on oxygen few months ago. pt has been living independently prior to all her admits. will get thoracentesis to see if this helps her sob. I have limited her oral intake, given her iv lasix with zaroxolyn multiple times without any relief. Her abd ultrasound no ascites. I am hoping thoracentesis will help. I did tell the son that the fluid can reaccumulate. 06/03 pt's k has improved she still has an elevated bun. her hh is at baseline. will monitor. she is on ppi. NO AC due to risk of fall. no dvt ppx due to low platelets. will order scd. 06/04 pt's k has improved. will change her iv steroids to po. will increase ss insulin. her bun is still high. mild hematuria but that has resolved. will get ua today. will check guiac. Thrombocytopenia but will watch will continue asa.
[2019-06-04] MEDS ORDERED: HumaLOG 300 UNITS/3 ML VIAL SC SCH (15:00)
[2019-06-04] MEDS: Tamsulosin HCl 0.4 MG CAP PO SCH (20:38)
[2019-06-05] MEDS: Budesonide 0.5 MG/2 ML NEB NEB SCH ×2 (07:14→19:19)
[2019-06-05 07:20] LABS: ALT (SGPT) 35 U/L (8-55); AST (SGOT) 36 U/L (5-34); Albumin 2.6 g/dL (3.4-4.8); Alkaline Phosphatase 158 U/L (40-110); Anion Gap 12 mmol/L (10-20); BUN (Urea Nitrogen) 71 mg/dL (9.8-20.1); Bilirubin, Total 3.2 mg/dL (0.2-1.2); Calc. Creatinine Clearance 47 mL/min (70-130); Calcium 9.6 mg/dL (7.8-10.44); Carbon Dioxide 31 mmol/L (23-31); Chloride 91 mmol/L (98-107); Estimated GFR-MDRD 38; Globulin 2.8 g/dL (2.4-3.5); Glucose 240 mg/dL (83-110); Potassium 5.1 mmol/L (3.5-5.1); Protein, Total 5.4 g/dL (6.0-8.3); Sodium 129 mmol/L (136-145)
[2019-06-05] MEDS: predniSONE 20 MG TAB PO SCH (08:56)
[2019-06-05] MEDS: Digoxin 0.125 MG TAB PO SCH (08:57)
[2019-06-05] MEDS: Rifaximin 550 MG TAB PO SCH ×2 (08:58→21:33)
[2019-06-05] MEDS: Aspirin 81 mg Enteric Coated Tablet PO SCH (08:58)
[2019-06-05] MEDS: Multivit, Therapeutic 1 TAB PO SCH (08:59)
[2019-06-05] MEDS: Torsemide 20 MG TAB PO SCH (08:59)
--- NOTE | 2019-06-05 09:01 | PDOC.HOSPP ---
- Subjective Encounter Date: 06/05/19 Encounter Time: 09:00 Subjective: nursing reports nosebleed, patient denies - Objective Vital Signs & Weight: Vital Signs (12 hours) Temp Pulse Resp BP Pulse Ox 06/05/19 07:14 90 L 06/05/19 07:11 86 20 90 L 06/05/19 03:46 98.5 F 94 24 H 112/54 L 90 L 06/05/19 02:29 89 20 93 L 06/04/19 22:14 109 H 20 92 L Weight Admit Weight 162 lb 6.4 oz Weight 180 lb 4.8 oz I&O: 06/04/19 06/05/19 06/06/19 06:59 06:59 06:59 Intake Total 1450 1270 Output Total 650 1490 Balance 800 -220 Result Diagrams: 06/04/19 06:34 06/05/19 06:50 Additional Labs: Accuchecks 06/05/19 06/04/19 06/04/19 05:56 21:30 17:10 POC Glucose 256 H 195 H 318 H 06/04/19 06/04/19 15:02 11:05 POC Glucose 321 H 351 H Hospitalist ROS - Medication Medications: Active Medications Generic Name Dose Route Start Last Admin Trade Name Freq PRN Reason Stop Dose Admin Acetaminophen 650 mg 05/19/19 21:50 05/28/19 15:31 Tylenol PO 650 mg Q4H PRN Administration Headache/Fever/Mild Pain (1-3) Albuterol/Ipratropium 3 ml 05/21/19 02:30 06/05/19 07:11 Duoneb NEB 3 ml [id number] JASON Administration Aspirin 81 mg 06/03/19 09:00 06/04/19 08:08 Ecotrin PO 81 mg DAILY JASON Administration Budesonide 0.5 mg 05/20/19 06:30 06/05/19 07:14 Pulmicort Neb Solution NEB 0.5 mg BID-RT JASON Administration Cholecalciferol 1,000 units 05/20/19 09:00 06/04/19 08:08 Vitamin D3 PO 1,000 units DAILY JASON Administration Digoxin 0.125 mg 05/23/19 09:00 06/04/19 08:08 Lanoxin PO 0.125 mg DAILY JASON Administration Diltiazem HCl 30 mg 05/22/19 14:00 06/05/19 06:03 Cardizem PO 30 mg Q8HR JASON Administration Insulin Human Lispro 0 units 06/04/19 10:24 06/04/19 17:22 Humalog SC 8 unit .MODERATE SLIDING SC PRN Administration Moderate Correctional Scale Insulin Human Regular 0 units 06/03/19 22:24 06/03/19 22:34 Humulin R SC 4 unit .BEDTIME SLIDING SC PRN Administration Bedtime Correctional Scale Ipratropium [place] 2.5 ml 05/19/19 23:02 05/20/19 23:38 Atrovent NEB 2.5 ml [id number] PRN Administration SOB &/or Wheezing Lactulose 10 gm 05/20/19 09:00 06/04/19 20:36 Lactulose PO Not Given BID JASON Multivitamins 1 tab 05/20/19 09:00 06/04/19 08:09 Theragran PO 1 tab DAILY JASON Administration Pantoprazole Sodium 40 mg 05/20/19 09:00 06/04/19 08:09 Protonix PO 40 mg DAILY JASON Administration Rifaximin 550 mg 05/23/19 09:00 06/04/19 20:38 Xifaxan PO 550 mg BID JASON Administration Sodium Chloride 10 ml 05/20/19 21:00 06/04/19 20:38 Flush - Normal Saline IVF 10 ml Q12HR JASON Administration Sodium Chloride 10 ml 05/20/19 12:14 06/03/19 10:03 Flush - Normal Saline IVF 10 ml PRN PRN Administration Saline Flush Tamsulosin HCl 0.4 mg 05/20/19 21:00 06/04/19 20:38 Flomax PO 0.4 mg HS JASON Administration Torsemide 20 mg 05/31/19 09:00 06/02/19 08:27 Demadex PO 20 mg DAILY JASON Administration - Exam General Appearance: awake alert Neck: no JVD Heart: RRR, no murmur Respiratory - other findings: coarse BS with rhonchi Gastrointestinal: soft, non-tender, normal bowel sounds Extremities: no edema Hosp A/P (1) Acute respiratory failure with hypoxemia Code(s): J96.01 - ACUTE RESPIRATORY FAILURE WITH HYPOXIA Status: Acute (2) Pleural effusion Code(s): J90 - PLEURAL EFFUSION, NOT ELSEWHERE CLASSIFIED Status: Acute (3) Aortic stenosis Code(s): I35.0 - NONRHEUMATIC AORTIC (VALVE) STENOSIS Status: Chronic Qualifiers: Cardiac valve disease etiology: etiology unspecified Qualified Code(s): I35.0 - Nonrheumatic aortic (valve) stenosis (4) Atrial fibrillation Code(s): I48.91 - UNSPECIFIED ATRIAL FIBRILLATION Status: Chronic Qualifiers: Atrial fibrillation type: unspecified Qualified Code(s): I48.91 - Unspecified atrial fibrillation (5) COPD exacerbation Code(s): J44.1 - CHRONIC OBSTRUCTIVE PULMONARY DISEASE W (ACUTE) EXACERBATION Status: Chronic (6) Pneumonia Code(s): J18.9 - PNEUMONIA, UNSPECIFIED ORGANISM Status: Acute Qualifiers: Pneumonia type: due to unspecified organism Laterality: bilateral Lung location: unspecified part of lung Qualified Code(s): J18.9 - Pneumonia, unspecified organism (7) Epistaxis Code(s): R04.0 - EPISTAXIS Status: Acute - Plan check PT/INR hold lovenox awaiting placement
[2019-06-05] MEDS: HumaLOG 300 UNITS/3 ML VIAL SC PRN ×4 (09:02→22:21)
[2019-06-05 10:04] LABS: INR-International Normal Ratio 1.6; Prothrombin Time 18.9 SEC (12.0-14.7)
[2019-06-05] MEDS: Tamsulosin HCl 0.4 MG CAP PO SCH (21:32)
[2019-06-06] MEDS: Budesonide 0.5 MG/2 ML NEB NEB SCH ×2 (06:51→18:17)
[2019-06-06] MEDS: Multivit, Therapeutic 1 TAB PO SCH (09:02)
[2019-06-06] MEDS: Digoxin 0.125 MG TAB PO SCH (09:02)
[2019-06-06] MEDS: Aspirin 81 mg Enteric Coated Tablet PO SCH (09:02)
[2019-06-06] MEDS: Rifaximin 550 MG TAB PO SCH ×2 (09:03→20:45)
[2019-06-06] MEDS: predniSONE 20 MG TAB PO SCH (09:03)
[2019-06-06] MEDS: Torsemide 20 MG TAB PO SCH (09:03)
[2019-06-06] MEDS: HumaLOG 300 UNITS/3 ML VIAL SC PRN ×3 (09:04→17:35)
--- NOTE | 2019-06-06 09:05 | PDOC.HOSPP ---
- Subjective Encounter Date: 06/06/19 Encounter Time: 09:02 Subjective: no complaints - Objective Vital Signs & Weight: Vital Signs (12 hours) Temp Pulse Resp BP Pulse Ox 06/06/19 07:59 94 L 06/06/19 06:50 83 L 06/06/19 06:48 103 H 20 83 L 06/06/19 04:00 97.4 F L 86 18 108/52 L 96 06/06/19 02:27 86 18 96 06/05/19 22:28 84 18 97 06/05/19 21:26 97.6 F 87 20 113/53 L 99 Weight Admit Weight 162 lb 6.4 oz Weight 182 lb 4.8 oz I&O: 06/05/19 06/06/19 06/07/19 06:59 06:59 06:59 Intake Total 1270 950 Output Total 1490 500 Balance -220 450 Result Diagrams: 06/04/19 06:34 06/05/19 06:50 Additional Labs: Accuchecks 06/06/19 06/05/19 06/05/19 05:43 20:41 17:06 POC Glucose 221 H 305 H 234 H 06/05/19 10:27 POC Glucose 326 H Hospitalist ROS - Medication Medications: Active Medications Generic Name Dose Route Start Last Admin Trade Name Freq PRN Reason Stop Dose Admin Acetaminophen 650 mg 05/19/19 21:50 05/28/19 15:31 Tylenol PO 650 mg Q4H PRN Administration Headache/Fever/Mild Pain (1-3) Albuterol/Ipratropium 3 ml 05/21/19 02:30 06/06/19 06:48 Duoneb NEB 3 ml [id number] JASON Administration Aspirin 81 mg 06/03/19 09:00 06/05/19 08:58 Ecotrin PO 81 mg DAILY JASON Administration Budesonide 0.5 mg 05/20/19 06:30 06/06/19 06:51 Pulmicort Neb Solution NEB 0.5 mg BID-RT JASON Administration Cholecalciferol 1,000 units 05/20/19 09:00 06/05/19 08:57 Vitamin D3 PO 1,000 units DAILY JASON Administration Digoxin 0.125 mg 05/23/19 09:00 06/05/19 08:57 Lanoxin PO 0.125 mg DAILY JASON Administration Diltiazem HCl 30 mg 05/22/19 14:00 06/06/19 06:09 Cardizem PO 30 mg Q8HR JASON Administration Insulin Human Lispro 0 units 06/04/19 10:24 06/05/19 22:21 Humalog SC 8 unit .MODERATE SLIDING SC PRN Administration Moderate Correctional Scale Insulin Human Regular 0 units 06/03/19 22:24 06/03/19 22:34 Humulin R SC 4 unit .BEDTIME SLIDING SC PRN Administration Bedtime Correctional Scale Ipratropium [place] 2.5 ml 05/19/19 23:02 05/20/19 23:38 Atrovent NEB 2.5 ml [id number] PRN Administration SOB &/or Wheezing Lactulose 10 gm 05/20/19 09:00 06/05/19 21:33 Lactulose PO Not Given BID JASON Multivitamins 1 tab 05/20/19 09:00 06/05/19 08:59 Theragran PO 1 tab DAILY JASON Administration Pantoprazole Sodium 40 mg 05/20/19 09:00 06/05/19 08:59 Protonix PO 40 mg DAILY JASON Administration Prednisone 40 mg 06/05/19 08:00 06/05/19 08:56 Prednisone PO 06/07/19 08:01 40 mg QAM-WM JASON Administration Rifaximin 550 mg 05/23/19 09:00 06/05/19 21:33 Xifaxan PO 550 mg BID JASON Administration Sodium Chloride 10 ml 05/20/19 21:00 06/05/19 21:34 Flush - Normal Saline IVF 10 ml Q12HR JASON Administration Sodium Chloride 10 ml 05/20/19 12:14 06/03/19 10:03 Flush - Normal Saline IVF 10 ml PRN PRN Administration Saline Flush Tamsulosin HCl 0.4 mg 05/20/19 21:00 06/05/19 21:32 Flomax PO 0.4 mg HS JASON Administration Torsemide 20 mg 05/31/19 09:00 06/05/19 08:59 Demadex PO 20 mg DAILY JASON Administration - Exam Neck: no JVD Heart: no murmur, irregular Respiratory - other findings: coarsr BS Gastrointestinal: soft, normal bowel sounds, distended Extremities: 1+ LE edema Hosp A/P (1) Acute respiratory failure with hypoxemia Code(s): J96.01 - ACUTE RESPIRATORY FAILURE WITH HYPOXIA Status: Acute (2) Pleural effusion Code(s): J90 - PLEURAL EFFUSION, NOT ELSEWHERE CLASSIFIED Status: Acute (3) Aortic stenosis Code(s): I35.0 - NONRHEUMATIC AORTIC (VALVE) STENOSIS Status: Chronic Qualifiers: Cardiac valve disease etiology: etiology unspecified Qualified Code(s): I35.0 - Nonrheumatic aortic (valve) stenosis (4) Atrial fibrillation Code(s): I48.91 - UNSPECIFIED ATRIAL FIBRILLATION Status: Chronic Qualifiers: Atrial fibrillation type: unspecified Qualified Code(s): I48.91 - Unspecified atrial fibrillation (5) COPD exacerbation Code(s): J44.1 - CHRONIC OBSTRUCTIVE PULMONARY DISEASE W (ACUTE) EXACERBATION Status: Chronic (6) Pneumonia Code(s): J18.9 - PNEUMONIA, UNSPECIFIED ORGANISM Status: Acute Qualifiers: Pneumonia type: due to unspecified organism Laterality: bilateral Lung location: unspecified part of lung Qualified Code(s): J18.9 - Pneumonia, unspecified organism (7) Epistaxis Code(s): R04.0 - EPISTAXIS Status: Acute - Plan cont xifain, diuretic etc for cirrhosis ccont nebs , etc for COPD placemnt
--- NOTE | 2019-06-06 13:03 | DIS ---
DATE OF ADMISSION: 05/19/2019 DATE OF DISCHARGE: 06/06/2019 PRIMARY CARE PROVIDER: Jac Goodwin MD Discharged to [facility] under the care of Vijaya Perry. FINAL DIAGNOSES: Acute respiratory failure with hypoxia, atrial fibrillation, cirrhosis of the liver, hepatic failure, pleural effusion, diastolic heart failure, aortic stenosis, pneumonia and chronic obstructive pulmonary disease exacerbation. DISCHARGE MEDICATIONS: 1. Torsemide 20 mg a day. 2. Xifaxan 550 mg a day. 3. Vitamin D3, 1000 units a day. 4. Budesonide 0.5 mg inhaled twice a day. 5. Omeprazole 40 mg a day. 6. Flomax 0.4 mg a day. 7. Melatonin 5 mg at bedtime p.r.n. 8. Lactulose 10 g b.i.d. 9. Ferrous sulfate 325 mg a day. 10. Aldactone 100 mg a day. 11. Cardizem 30 mg p.o. q.8 hours. 12. Prednisone 40 mg a day. 13. DuoNeb 3 mL q.4 hours p.r.n. 14. Atrovent 2.5 mL q.6 hours. 15. Digoxin 0.125 mg a day. 16. Aspirin 81 mg a day. ALLERGIES: TO SULFA AND IBUPROFEN. DIET: Heart healthy, low salt, fluid restriction 1200 mL a day. CODE STATUS: Full. PENDING AT THE TIME OF DISCHARGE: Nothing. CONSULTATIONS: 1. Dr. Jimmy Lugo, Pulmonology. 2. Dr. Isrrael Otto, Cardiology. 3. Dr. Uday Carpenter, Gastroenterology. PROCEDURES: Paracentesis on 05/30/2019. Radiology. HOSPITAL COURSE: The patient admitted to the Hospitalist Service through [facility] with shortness of breath, palpitations, she found to be in atrial fibrillation with rapid ventricular response. Started on Cardizem drip. Digoxin was increased. She had increased ascites. 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 Interval worsening of ascites, improvement in the right hydronephrosis. Chest x-ray, large right pleural effusion, patchy infiltrates in the left lung field consistent with heart failure. On 05/21/2019, Cardiology and Pulmonary have been consulted. The patient was on DuoNebs q.4 hours, Pulmicort, ceftriaxone 1 g a day, diltiazem IV administration, Xifaxan, spironolactone. On 05/21/2019, Dr. Jimmy Lugo recommending adding Lasix to spironolactone, rate control for atrial fibrillation. Dr. Otto on 05/22/2019 recommended increasing Cardizem and digoxin, on 05/24/2019 continuing spironolactone, IV Lasix. Continue metoprolol, Cardizem, digoxin. Atrial fibrillation rate was controlled. At that time, nebs for COPD, steroids for COPD. On 05/29/2019, chest x-ray was essentially unchanged. The patient has been transitioned to oral medicines. Placement was in progress on 05/30/2019. Post paracentesis revealed no remaining ascitic fluid. On 06/05/2019, the patient's status had not changed significantly, waiting for placement. The patient's status is currently stable. DISCHARGE PHYSICAL EXAMINATION: VITAL SIGNS: Blood pressure 108/52, pulse 86 and regular, respirations 18, and O2 saturation is 96 on nasal cannula. CHEST: Reveals coarse breath sounds, dull in the right base. HEART: Irregular rate and rhythm. No murmurs. No gallops were appreciated. 1 + edema. She is being transitioned to fdc care. Her laboratory on admission; white count 7.8, hemoglobin 10.6, and platelet count 90,000. At the time of discharge, hemoglobin 8.9, white count 8.1, and platelet count of 66,000. She has coagulopathy her cirrhosis with an INR of 1.5 to 1.6. Her initial sodium 132, potassium 4.9, BUN 26, creatinine 0.95, bilirubin 5.2, and transaminases normal. Most recent lab; sodium 129, potassium 5.1, BUN 71, creatinine 1.35. The patient is being transferred. She will need her prednisone tapered over the next couple of weeks. She has multifactorial disease with chronic diastolic heart failure, cirrhosis, atrial fibrillation, rapid ventricular response, chronic obstructive pulmonary disease. Risk for readmission is high. Job ID: [id number] [facility]
[2019-06-06] MEDS: Tamsulosin HCl 0.4 MG CAP PO SCH (20:45)
[2019-06-06] MEDS: Insulin Regular 300 UNITS/3 ML VIAL SC PRN (21:57)
[2019-06-07] MEDS: HumaLOG 300 UNITS/3 ML VIAL SC PRN (06:35)
[2019-06-07] MEDS: Budesonide 0.5 MG/2 ML NEB NEB SCH ×2 (06:47→18:25)
[2019-06-07 09:15] LABS: Actual Bicarbonate (HCO3a) 39.7 mEq/L (22-28); Base Excess (BEa) 12.8 mEq/L (-2.0 to +3.0); Calcium, Ionized 1.25 mmol/L (1.12-1.30); Carboxyhemoglobin (COHb) 1.9 gm% (0.0-3.0); Hemoglobin (Hb) 8.8 g/dL (12.0-16.0); O2 Tension (PaO2) 77.2 mmHg (> 70.0); Potassium - ABG Lab 5.04 mmol/L (3.70-5.30); pH, Arterial 7.39 (7.35-7.45)
[2019-06-07 09:18] LABS: CO2 Tension 67.9 mmHg (35.0-45.0); Puncture Site RR
[2019-06-07 09:25] LABS: #Lymphocytes 0.3 thou/uL (1.20-3.40); #Monocytes 0.6 thou/uL (0.11-0.59); #Neutrophils 9.5 thou/uL (1.40-6.50); %Eosinophils 0.2 % (0.0-10.0); %Lymphocytes 2.5 % (21.0-51.0); %Monocytes 6.1 % (0.0-10.0); %Neutrophils 91.3 % (42.0-75.0); Hemoglobin 8.4 g/dL (12.0-16.0); Mean Corpuscular HGB CONC 32.2 g/dL (32.0-36.0); Mean Corpuscular Hemoglobin 31.4 pg (27.0-31.0); Mean Corpuscular Volume 97.4 fL (78.0-98.0); Mean Platelet Volume 9.5 fL (7.4-10.4); Platelet Count 71 thou/uL (130-400); RBC Distribution Width 17.5 % (11.5-14.5); Red Blood Cell (RBC) Count 2.66 mill/uL (4.20-5.40); White Blood Cell (WBC) Count 10.4 thou/uL (4.8-10.8)
[2019-06-07] MEDS: Torsemide 20 MG TAB PO SCH (09:31)
[2019-06-07] MEDS: Rifaximin 550 MG TAB PO SCH ×2 (09:31→20:30)
[2019-06-07] MEDS: Multivit, Therapeutic 1 TAB PO SCH (09:31)
[2019-06-07] MEDS: predniSONE 20 MG TAB PO SCH (09:31)
[2019-06-07] MEDS: Digoxin 0.125 MG TAB PO SCH (09:31)
[2019-06-07] MEDS: Aspirin 81 mg Enteric Coated Tablet PO SCH (09:31)
[2019-06-07 09:45] LABS: ALT (SGPT) 41 U/L (8-55); AST (SGOT) 39 U/L (5-34); Albumin 2.5 g/dL (3.4-4.8); Alkaline Phosphatase 128 U/L (40-110); Anion Gap 9 mmol/L (10-20); BUN (Urea Nitrogen) 83 mg/dL (9.8-20.1); Bilirubin, Total 3.6 mg/dL (0.2-1.2); Calc. Creatinine Clearance 51 mL/min (70-130); Calcium 9.3 mg/dL (7.8-10.44); Carbon Dioxide 35 mmol/L (23-31); Chloride 90 mmol/L (98-107); Estimated GFR-MDRD 43; Globulin 2.8 g/dL (2.4-3.5); Glucose 282 mg/dL (83-110); Potassium 5.2 mmol/L (3.5-5.1); Protein, Total 5.3 g/dL (6.0-8.3); Sodium 129 mmol/L (136-145)
--- NOTE | 2019-06-07 09:57 | PDOC.HOSPP ---
- Subjective Encounter Date: 06/07/19 Encounter Time: 09:54 Subjective: don't feelgood - Objective Vital Signs & Weight: Vital Signs (12 hours) Temp Pulse Resp BP Pulse Ox 06/07/19 09:31 76 06/07/19 08:15 95.4 F L 76 12 99/47 L 95 06/07/19 06:47 93 L 06/07/19 06:44 79 20 92 L 06/07/19 04:00 95.9 F L 77 18 90/54 L 93 L 06/07/19 02:10 95 06/07/19 02:09 78 20 95 06/06/19 22:10 78 20 97 Weight Admit Weight 162 lb 6.4 oz Weight 177 lb 6.4 oz I&O: 06/06/19 06/07/19 06/08/19 06:59 06:59 06:59 Intake Total 950 420 Output Total 500 450 Balance 450 -30 Result Diagrams: 06/07/19 09:14 06/07/19 09:14 Additional Labs: Accuchecks 06/06/19 06/06/19 06/06/19 20:41 16:45 10:47 POC Glucose 257 H 235 H 330 H Hospitalist ROS - Medication Medications: Active Medications Generic Name Dose Route Start Last Admin Trade Name Freq PRN Reason Stop Dose Admin Acetaminophen 650 mg 05/19/19 21:50 05/28/19 15:31 Tylenol PO 650 mg Q4H PRN Administration Headache/Fever/Mild Pain (1-3) Albuterol/Ipratropium 3 ml 05/21/19 02:30 06/07/19 06:44 Duoneb NEB 3 ml [id number] JASON Administration Aspirin 81 mg 06/03/19 09:00 06/07/19 09:31 Ecotrin PO 81 mg DAILY JASON Administration Budesonide 0.5 mg 05/20/19 06:30 06/07/19 06:47 Pulmicort Neb Solution NEB 0.5 mg BID-RT JASON Administration Cholecalciferol 1,000 units 05/20/19 09:00 06/07/19 09:31 Vitamin D3 PO 1,000 units DAILY JASON Administration Digoxin 0.125 mg 05/23/19 09:00 06/07/19 09:31 Lanoxin PO 0.125 mg DAILY JASON Administration Diltiazem HCl 30 mg 05/22/19 14:00 06/07/19 06:11 Cardizem PO 30 mg Q8HR JASON Administration Insulin Human Lispro 0 units 06/04/19 10:24 06/07/19 06:35 Humalog SC 4 unit .MODERATE SLIDING SC PRN Administration Moderate Correctional Scale Insulin Human Regular 0 units 06/03/19 22:24 06/06/19 21:57 Humulin R SC 3 unit .BEDTIME SLIDING SC PRN Administration Bedtime Correctional Scale Ipratropium [place]rill 2.5 ml 05/19/19 23:02 05/20/19 23:38 Atrovent NEB 2.5 ml [id number] PRN Administration SOB &/or Wheezing Lactulose 10 gm 05/20/19 09:00 06/07/19 09:32 Lactulose PO 10 gm BID JASON Administration Multivitamins 1 tab 05/20/19 09:00 06/07/19 09:31 Theragran PO 1 tab DAILY JASON Administration Pantoprazole Sodium 40 mg 05/20/19 09:00 06/07/19 09:31 Protonix PO 40 mg DAILY JASON Administration Rifaximin 550 mg 05/23/19 09:00 06/07/19 09:31 Xifaxan PO 550 mg BID JASON Administration Sodium Chloride 10 ml 05/20/19 21:00 06/07/19 09:32 Flush - Normal Saline IVF 10 ml Q12HR JASON Administration Sodium Chloride 10 ml 05/20/19 12:14 06/03/19 10:03 Flush - Normal Saline IVF 10 ml PRN PRN Administration Saline Flush Tamsulosin HCl 0.4 mg 05/20/19 21:00 06/06/19 20:45 Flomax PO 0.4 mg HS JASON Administration Torsemide 20 mg 05/31/19 09:00 06/07/19 09:31 Demadex PO 20 mg DAILY JASON Administration - Exam Neck: no JVD Heart: irregular Respiratory - other findings: coarse BS Gastrointestinal: soft, normal bowel sounds Extremities: 1+ LE edema Hosp A/P (1) Acute respiratory failure with hypoxemia Code(s): J96.01 - ACUTE RESPIRATORY FAILURE WITH HYPOXIA Status: Acute (2) Pleural effusion Code(s): J90 - PLEURAL EFFUSION, NOT ELSEWHERE CLASSIFIED Status: Acute (3) Aortic stenosis Code(s): I35.0 - NONRHEUMATIC AORTIC (VALVE) STENOSIS Status: Chronic Qualifiers: Cardiac valve disease etiology: etiology unspecified Qualified Code(s): I35.0 - Nonrheumatic aortic (valve) stenosis (4) Atrial fibrillation Code(s): I48.91 - UNSPECIFIED ATRIAL FIBRILLATION Status: Chronic Qualifiers: Atrial fibrillation type: unspecified Qualified Code(s): I48.91 - Unspecified atrial fibrillation (5) COPD exacerbation Code(s): J44.1 - CHRONIC OBSTRUCTIVE PULMONARY DISEASE W (ACUTE) EXACERBATION Status: Chronic (6) Pneumonia Code(s): J18.9 - PNEUMONIA, UNSPECIFIED ORGANISM Status: Acute Qualifiers: Pneumonia type: due to unspecified organism Laterality: bilateral Lung location: unspecified part of lung Qualified Code(s): J18.9 - Pneumonia, unspecified organism (7) Epistaxis Code(s): R04.0 - EPISTAXIS Status: Acute - Plan ABG CO2 69-adverse resp failure move to ICU,in processing instructor notified hypothermic-luis ortiz further recommendations deepika
[2019-06-07 10:04] LABS: Free T4 (Free Thyroxine) 0.67 ng/dL (0.70-1.48)
[2019-06-07 14:39] LABS: Base Excess (BEa) 7.4 mEq/L (-2.0 to +3.0); CO2 Tension 49.3 mmHg (35.0-45.0); Calcium, Ionized 1.23 mmol/L (1.12-1.30); Potassium - ABG Lab 4.87 mmol/L (3.70-5.30); pH, Arterial 7.44 (7.35-7.45)
[2019-06-07 14:41] LABS: O2 Tension (PaO2) 59.2 mmHg (> 70.0)
[2019-06-07 14:42] LABS: ALV-art Gradient 78.815 (0-20); Actual Bicarbonate (HCO3a) 32.5 mEq/L (22-28); Puncture Site RB
--- NOTE | 2019-06-07 16:24 | PDOC.EVN ---
Event Note - Event Note Event Note: post warming with bear hugger-ABGs returned to baseline
[2019-06-07] MEDS: Acetaminophen 325 MG TAB PO PRN (18:49)
[2019-06-07] MEDS: Tamsulosin HCl 0.4 MG CAP PO SCH (20:30)
[2019-06-07] MEDS: Insulin Regular 300 UNITS/3 ML VIAL SC PRN (21:13)
[2019-06-07] MEDS ORDERED: traMADol HCl 50 MG TAB PO SCH (21:15)
[2019-06-08] MEDS: HumaLOG 300 UNITS/3 ML VIAL SC PRN ×3 (06:13→16:13)
[2019-06-08] MEDS: Budesonide 0.5 MG/2 ML NEB NEB SCH ×2 (07:01→18:14)
[2019-06-08] MEDS: Digoxin 0.125 MG TAB PO SCH (08:41)
[2019-06-08] MEDS: Torsemide 20 MG TAB PO SCH (08:42)
[2019-06-08] MEDS: Aspirin 81 mg Enteric Coated Tablet PO SCH (08:42)
[2019-06-08] MEDS: Acetaminophen 325 MG TAB PO PRN (08:44)
[2019-06-08] MEDS: Multivit, Therapeutic 1 TAB PO SCH (08:45)
[2019-06-08] MEDS: Rifaximin 550 MG TAB PO SCH ×2 (08:45→21:40)
--- NOTE | 2019-06-08 10:52 | PDOC.HOSPP ---
- Subjective Encounter Date: 06/08/19 Encounter Time: 10:50 Subjective: hypothermic, on bear hugger. she states " I'm fine" - Objective Vital Signs & Weight: Vital Signs (12 hours) Temp Pulse Resp Pulse Ox 06/08/19 10:21 60 21 H 93 L 06/08/19 08:41 71 06/08/19 07:00 74 28 H 96 06/08/19 04:00 96.5 F L 06/08/19 03:01 68 20 96 06/08/19 01:44 97.6 F 06/08/19 00:00 94.4 F L Weight Admit Weight 162 lb 6.4 oz Weight 177 lb 6.4 oz Most Recent Monitor Data Heart Rate from ECG 67 NIBP 100/36 NIBP BP-Mean 57 Respiration from ECG 17 SpO2 96 I&O: 06/07/19 06/08/19 06/09/19 06:59 06:59 06:59 Intake Total 420 600 290 Output Total 450 855 Balance -30 -255 290 Result Diagrams: 06/07/19 09:14 06/07/19 09:14 Additional Labs: Accuchecks 06/08/19 06/07/19 06/07/19 06:13 20:52 16:54 POC Glucose 255 H 377 H 271 H Hospitalist ROS - Medication Medications: Active Medications Generic Name Dose Route Start Last Admin Trade Name Freq PRN Reason Stop Dose Admin Acetaminophen 650 mg 05/19/19 21:50 06/08/19 08:44 Tylenol PO 650 mg Q4H PRN Administration Headache/Fever/Mild Pain (1-3) Albuterol/Ipratropium 3 ml 05/21/19 02:30 06/08/19 10:21 Duoneb NEB 3 ml [id number] JASON Administration Aspirin 81 mg 06/03/19 09:00 06/08/19 08:42 Ecotrin PO 81 mg DAILY JASON Administration Budesonide 0.5 mg 05/20/19 06:30 06/08/19 07:01 Pulmicort Neb Solution NEB 0.5 mg BID-RT JASON Administration Cholecalciferol 1,000 units 05/20/19 09:00 06/08/19 08:43 Vitamin D3 PO 1,000 units DAILY JASON Administration Digoxin 0.125 mg 05/23/19 09:00 06/08/19 08:41 Lanoxin PO 0.125 mg DAILY JASON Administration Diltiazem HCl 30 mg 05/22/19 14:00 06/08/19 06:11 Cardizem PO 30 mg Q8HR JASON Administration Insulin Human Lispro 0 units 06/04/19 10:24 06/08/19 06:13 Humalog SC 6 unit .MODERATE SLIDING SC PRN Administration Moderate Correctional Scale Insulin Human Regular 0 units 06/03/19 22:24 06/07/19 21:13 Humulin R SC 5 unit .BEDTIME SLIDING SC PRN Administration Bedtime Correctional Scale Ipratropium [place] 2.5 ml 05/19/19 23:02 05/20/19 23:38 Atrovent NEB 2.5 ml [id number] PRN Administration SOB &/or Wheezing Lactulose 10 gm 05/20/19 09:00 06/08/19 08:45 Lactulose PO 10 gm BID JASON Administration Multivitamins 1 tab 05/20/19 09:00 06/08/19 08:45 Theragran PO 1 tab DAILY JASON Administration Pantoprazole Sodium 40 mg 05/20/19 09:00 06/08/19 08:43 Protonix PO 40 mg DAILY JASON Administration Rifaximin 550 mg 05/23/19 09:00 06/08/19 08:45 Xifaxan PO 550 mg BID JASON Administration Sodium Chloride 10 ml 05/20/19 21:00 06/08/19 08:45 Flush - Normal Saline IVF 10 ml Q12HR JASON Administration Sodium Chloride 10 ml 05/20/19 12:14 06/03/19 10:03 Flush - Normal Saline IVF 10 ml PRN PRN Administration Saline Flush Tamsulosin HCl 0.4 mg 05/20/19 21:00 06/07/19 20:30 Flomax PO 0.4 mg HS JASON Administration Torsemide 20 mg 05/31/19 09:00 06/08/19 08:42 Demadex PO 20 mg DAILY JASON Administration - Exam Neck: no JVD Heart: RRR, no murmur Respiratory - other findings: coarse BS Gastrointestinal: soft, normal bowel sounds Extremities: no edema Hosp A/P (1) Acute respiratory failure with hypoxemia Code(s): J96.01 - ACUTE RESPIRATORY FAILURE WITH HYPOXIA Status: Acute (2) Pleural effusion Code(s): J90 - PLEURAL EFFUSION, NOT ELSEWHERE CLASSIFIED Status: Acute (3) Aortic stenosis Code(s): I35.0 - NONRHEUMATIC AORTIC (VALVE) STENOSIS Status: Chronic Qualifiers: Cardiac valve disease etiology: etiology unspecified Qualified Code(s): I35.0 - Nonrheumatic aortic (valve) stenosis (4) Atrial fibrillation Code(s): I48.91 - UNSPECIFIED ATRIAL FIBRILLATION Status: Chronic Qualifiers: Atrial fibrillation type: unspecified Qualified Code(s): I48.91 - Unspecified atrial fibrillation (5) COPD exacerbation Code(s): J44.1 - CHRONIC OBSTRUCTIVE PULMONARY DISEASE W (ACUTE) EXACERBATION Status: Chronic (6) Pneumonia Code(s): J18.9 - PNEUMONIA, UNSPECIFIED ORGANISM Status: Acute Qualifiers: Pneumonia type: due to unspecified organism Laterality: bilateral Lung location: unspecified part of lung Qualified Code(s): J18.9 - Pneumonia, unspecified organism (7) Epistaxis Code(s): R04.0 - EPISTAXIS Status: Acute - Plan ortsol level, rpt CXR solu-medrol 125 mg now CXR adverse-diuresis with IV lasix discuused resuscitation status with son- DNAR confirmed
[2019-06-08] MEDS ORDERED: Bacteriostatic Water 30 ML VIAL FS PRN (11:04)
[2019-06-08] MEDS ORDERED: Furosemide 40 MG/4 ML VIAL ONE (11:44)
[2019-06-08] MEDS ORDERED: methylPREDNISolone Sod Succ/PF 125 MG/2 ML VIAL IVP SCH (11:45)
[2019-06-08] MEDS: Furosemide 40 MG/4 ML VIAL SLOW IVP SCH (11:46)
--- NOTE | 2019-06-08 11:47 | PDOC.EVN ---
Event Note - Event Note Event Note: in consultation with Jmimy anderson DNAR
--- NOTE | 2019-06-08 12:07 | RAD ---
CHEST 1 VIEW: Date: 06/08/19 HISTORY: Follow-up. COMPARISON: 06/01/19. FINDINGS: Extensive enlargement of the cardiac silhouette. Progressive extensive interstitial and alveolar pare nchymal changes throughout both right and left lungs with bilateral pleural effusions, greater on the right side. IMPRESSION: Progressive bilateral alveolar and interstitial parenchymal changes, cardiomegaly, and pleural effusi ons, showing worsening from prior study. CODE T. POS: TPC
[2019-06-08 14:33] VITALS: BMI 33.4
[2019-06-08] MEDS: Tamsulosin HCl 0.4 MG CAP PO SCH (21:40)
[2019-06-09] MEDS: Furosemide 40 MG/4 ML VIAL SLOW IVP SCH ×2 (05:44→16:36)
[2019-06-09] MEDS: Budesonide 0.5 MG/2 ML NEB NEB SCH (07:11)
[2019-06-09] MEDS ORDERED: Ondansetron PF 4 MG/2 ML Vial IVP PRN (07:43)
[2019-06-09] MEDS ORDERED: Ondansetron ODT 4 MG TAB SL PRN (07:43)
[2019-06-09] MEDS ORDERED: Diabetic Tussin 200 MG/10 ML UDCUP PO PRN (07:43)
[2019-06-09] MEDS ORDERED: Cepastat Lozenges 1 LOZ PO PRN (07:43)
[2019-06-09] MEDS ORDERED: hydrALAZINE 20 MG/ML VIAL SLOW IVP PRN (07:43)
[2019-06-09] MEDS ORDERED: Sodium Chloride 0.65% Nasal 44 ML BOT EA NARE PRN (07:43)
[2019-06-09] MEDS ORDERED: Bisacodyl 10 MG SUPP PR PRN (07:43)
[2019-06-09] MEDS ORDERED: Artificial Tears 18 DROP/0.9 ML EA EYE PRN (07:43)
[2019-06-09] MEDS ORDERED: Loperamide HCl 2 MG CAP PO PRN (07:43)
[2019-06-09] MEDS ORDERED: Calcium Carbonate 500 MG ChewTAB PO PRN (07:43)
[2019-06-09] MEDS: Digoxin 0.125 MG TAB PO SCH (08:44)
[2019-06-09] MEDS: Aspirin 81 mg Enteric Coated Tablet PO SCH (08:44)
[2019-06-09] MEDS: Multivit, Therapeutic 1 TAB PO SCH (08:44)
[2019-06-09] MEDS: Rifaximin 550 MG TAB PO SCH (08:44)
[2019-06-09] MEDS ORDERED: methylPREDNISolone Sod Succ/PF 125 MG/2 ML VIAL IVP SCH (09:00)
[2019-06-09] MEDS ORDERED: Nystatin Powder 15 GM BOT TOP SCH (09:00)
[2019-06-09] MEDS: HumaLOG 300 UNITS/3 ML VIAL SC PRN (11:16)
--- NOTE | 2019-06-09 11:48 | PDOC.HOSPP ---
- Subjective Encounter Date: 06/09/19 Encounter Time: 08:00 Subjective: Patient seen and examined. pt is confused, has gurgle sound, No overnight events - Objective Vital Signs & Weight: Vital Signs (12 hours) Temp Pulse Resp BP Pulse Ox 06/09/19 10:16 70 20 06/09/19 08:44 76 06/09/19 07:45 96.8 F L 76 14 104/48 L 94 L 06/09/19 07:11 90 18 06/09/19 03:15 96.3 F L 79 20 103/50 L 92 L 06/09/19 03:09 93 L 06/09/19 02:22 79 28 H 93 L 06/09/19 00:00 96.1 F L 22 H Weight Admit Weight 162 lb 6.4 oz Weight 177 lb Most Recent Monitor Data Heart Rate from ECG 63 NIBP 102/39 NIBP BP-Mean 60 Respiration from ECG 27 SpO2 89 I&O: 06/08/19 06/09/19 06/10/19 06:59 06:59 06:59 Intake Total 600 340 Output Total 855 210 Balance -255 130 Result Diagrams: 06/07/19 09:14 06/07/19 09:14 Additional Labs: Accuchecks 06/09/19 06/09/19 06/08/19 10:48 06:19 21:10 POC Glucose 313 H 256 H 196 H 06/08/19 16:14 POC Glucose 204 H Radiology Reviewed by me: Yes EKG Reviewed by me: Yes Hospitalist ROS - Review of Systems ROS unobtainable: due to mental status - Medication Medications: Active Medications Generic Name Dose Route Start Last Admin Trade Name Freq PRN Reason Stop Dose Admin Acetaminophen 650 mg 05/19/19 21:50 06/08/19 08:44 Tylenol PO 650 mg Q4H PRN Administration Headache/Fever/Mild Pain (1-3) Albuterol/Ipratropium 3 ml 05/21/19 02:30 06/09/19 10:16 Duoneb NEB 3 ml [id number] JASON Administration Aspirin 81 mg 06/03/19 09:00 06/09/19 08:44 Ecotrin PO 81 mg DAILY JASON Administration Budesonide 0.5 mg 05/20/19 06:30 06/09/19 07:11 Pulmicort Neb Solution NEB 0.5 mg BID-RT JASON Administration Cholecalciferol 1,000 units 05/20/19 09:00 06/09/19 09:01 Vitamin D3 PO 1,000 units DAILY JASON Administration Digoxin 0.125 mg 05/23/19 09:00 06/09/19 08:44 Lanoxin PO 0.125 mg DAILY JASON Administration Diltiazem HCl 30 mg 05/22/19 14:00 06/09/19 05:44 Cardizem PO 30 mg Q8HR JASON Administration Furosemide 40 mg 06/08/19 14:00 06/09/19 05:44 Lasix SLOW IVP 40 mg 0600,1400 JASON Administration Insulin Human Lispro 0 units 06/04/19 10:24 06/09/19 11:16 Humalog SC 8 unit .MODERATE SLIDING SC PRN Administration Moderate Correctional Scale Insulin Human Regular 0 units 06/03/19 22:24 06/07/19 21:13 Humulin R SC 5 unit .BEDTIME SLIDING SC PRN Administration Bedtime Correctional Scale Ipratropium [place] 2.5 ml 05/19/19 23:02 05/20/19 23:38 Atrovent NEB 2.5 ml [id number] PRN Administration SOB &/or Wheezing Lactulose 10 gm 05/20/19 09:00 06/09/19 08:45 Lactulose PO 10 gm BID JASON Administration Multivitamins 1 tab 05/20/19 09:00 06/09/19 08:44 Theragran PO 1 tab DAILY JASON Administration Nystatin 0 gm 06/09/19 09:00 06/09/19 11:16 Mycostatin Powder TOP 1 applic BID JASON Administration Pantoprazole Sodium 40 mg 05/20/19 09:00 06/09/19 08:45 Protonix PO 40 mg DAILY JASON Administration Rifaximin 550 mg 05/23/19 09:00 06/09/19 08:44 Xifaxan PO 550 mg BID JASON Administration Sodium Chloride 10 ml 05/20/19 21:00 06/09/19 09:01 Flush - Normal Saline IVF 10 ml Q12HR JASON Administration Sodium Chloride 10 ml 05/20/19 12:14 06/03/19 10:03 Flush - Normal Saline IVF 10 ml PRN PRN Administration Saline Flush Tamsulosin HCl 0.4 mg 05/20/19 21:00 06/08/19 21:40 Flomax PO 0.4 mg HS JASON Administration - Exam General Appearance: ill appearing Eye: PERRL, anicteric sclera ENT: normocephalic atraumatic, no oropharyngeal lesions Neck: supple, symmetric, no JVD Heart: RRR, murmur present Respiratory: rales, rhonchi, wheezes Gastrointestinal: soft, non-distended, normal bowel sounds Extremities: 2+ LE edema Skin: normal turgor, no lesions Neurological: no focal deficits Psychiatric: not oriented, somnolent Hosp A/P (1) Acute respiratory failure with hypoxemia Code(s): J96.01 - ACUTE RESPIRATORY FAILURE WITH HYPOXIA Status: Acute (2) CHF (congestive heart failure) Code(s): I50.9 - HEART FAILURE, UNSPECIFIED Status: Acute Qualifiers: Heart failure type: diastolic Heart failure chronicity: acute on chronic Qualified Code(s): I50.33 - Acute on chronic diastolic (congestive) heart failure (3) Alcoholic cirrhosis of liver Code(s): K70.30 - ALCOHOLIC CIRRHOSIS OF LIVER WITHOUT ASCITES Status: Chronic Qualifiers: Ascites presence: with ascites Qualified Code(s): K70.31 - Alcoholic cirrhosis of liver with ascites (4) Atrial fibrillation Code(s): I48.91 - UNSPECIFIED ATRIAL FIBRILLATION Status: Chronic Qualifiers: Atrial fibrillation type: paroxysmal Qualified Code(s): I48.0 - Paroxysmal atrial fibrillation (5) COPD exacerbation Code(s): J44.1 - CHRONIC OBSTRUCTIVE PULMONARY DISEASE W (ACUTE) EXACERBATION Status: Chronic (6) Aortic stenosis Code(s): I35.0 - NONRHEUMATIC AORTIC (VALVE) STENOSIS Status: Chronic Qualifiers: Cardiac valve disease etiology: etiology unspecified Qualified Code(s): I35.0 - Nonrheumatic aortic (valve) stenosis (7) Dementia Code(s): F03.90 - UNSPECIFIED DEMENTIA WITHOUT BEHAVIORAL DISTURBANCE Status: Chronic (8) Diabetes mellitus Code(s): E11.9 - TYPE 2 DIABETES MELLITUS WITHOUT COMPLICATIONS Status: Chronic - Plan old records reviewed/req, plan discussed w/ family, social security specialist - prognosis is not good, discussed with son and updated condition, check cbc, cmp, ammonia stat, consider palliative care, medication reviewed and continue to provide supportive care
[2019-06-09 12:25] LABS: #Lymphocytes 0.2 thou/uL (1.20-3.40); #Monocytes 0.7 thou/uL (0.11-0.59); %Lymphocytes 1.7 % (21.0-51.0); %Monocytes 5.1 % (0.0-10.0); %Neutrophils 93.2 % (42.0-75.0); Hemoglobin 8.9 g/dL (12.0-16.0); Mean Corpuscular Hemoglobin 30.5 pg (27.0-31.0); Mean Corpuscular Volume 98.2 fL (78.0-98.0); Mean Platelet Volume 8.6 fL (7.4-10.4); Platelet Count 92 thou/uL (130-400); RBC Distribution Width 17.7 % (11.5-14.5); Red Blood Cell (RBC) Count 2.93 mill/uL (4.20-5.40); White Blood Cell (WBC) Count 13.9 thou/uL (4.8-10.8)
[2019-06-09 12:40] LABS: ALT (SGPT) 46 U/L (8-55); AST (SGOT) 37 U/L (5-34); Albumin 2.8 g/dL (3.4-4.8); Alkaline Phosphatase 128 U/L (40-110); Anion Gap 11 mmol/L (10-20); BUN (Urea Nitrogen) 106 mg/dL (9.8-20.1); Bilirubin, Total 5.4 mg/dL (0.2-1.2); Calc. Creatinine Clearance 36 mL/min (70-130); Calcium 9.7 mg/dL (7.8-10.44); Carbon Dioxide 37 mmol/L (23-31); Chloride 90 mmol/L (98-107); Estimated GFR-MDRD 28; Globulin 2.8 g/dL (2.4-3.5); Glucose 240 mg/dL (83-110); Potassium 5.8 mmol/L (3.5-5.1); Protein, Total 5.6 g/dL (6.0-8.3); Sodium 132 mmol/L (136-145)
[2019-06-09] MEDS ORDERED: Lorazepam 2 MG/ML VIAL SLOW IVP PRN (14:06)
[2019-06-09 16:43] VITALS: BP 93/44; TEMP 95.7
--- NOTE | 2019-06-10 01:33 | PQF ---
RIC MAYBERRY SALIM NOORJIBHAI MD [id number] [id number] [id number] CLINICAL DOCUMENTATION CLARIFICATION FORM: POST DISCHARGE Addendum to original discharge summary date: ____ Late entry note date: __ DATE: 06/10/19 ATTN: Eleazar Jason Please exercise your independent, professional judgment in responding to the clarification form. Clinical indicators are provided on the bottom of this form for your review Please check appropriate box(s) to clarify if the following diagnosis has been ruled in or ruled out: SEPSIS [ x ] Ruled in diagnosis [ x] Continue to treat [ ] Resolved [ ] Ruled out diagnosis [ ] Cannot rule out diagnosis [ ] Other diagnosis [ ] Unable to determine In addition, please specify: Present on Admission (POA): [x ] Yes [ ] No [ ] Unable to determine For continuity of documentation, please document condition throughout progress notes and discharge summary. Thank You. CLINICAL INDICATORS - SIGNS / SYMPTOMS / LABS ED Notes 05/19 "She will be admitted and treated for sepsis 2/2 CAP and UTI" ED Notes 05/19 "presents with evaluation of heart racing" ED Vital Signs 05/19: BP:117/59 Respi:30 Pulse:120 Labs WBC:13.9 PN 05/23 "Acute respiratory failure with hypoxia" PN 05/23 "Pneumonia" PN 06/09 "patient is confused" RISK FACTORS ED Notes 05/19-73 years old female ED Notes 05/19-Former smoker ED Notes 05/19-History of breast cancer HP 05/19-Cirrhosis PN 05/23-COPD PN 05/23-PNA PN 06/09-DM PN 06/09-Dementia TREATMENTS Collected 05/19-Chest Xray MAR 05/19-Zithromax 500mg IV AUG 29-Maxipime 2gm IV AUG 30-IVF (This form is maintained as a part of the permanent medical record) 2014 [employer] All Rights Reserved [email or web address] [not provided] MTDD
--- NOTE | 2019-06-10 07:35 | DIS ---
DATE OF ADMISSION: 05/19/2019 DATE OF DISCHARGE: 06/09/2019 DISCHARGE DISPOSITION: Inpatient hospice. PRIMARY DISCHARGE DIAGNOSES: 1. Acute metabolic encephalopathy. 2. Hepatic encephalopathy. 3. Sepsis with acute organ dysfunction. 4. Atrial fibrillation with rapid ventricular response. 5. Decompensated cirrhosis. 6. Acute on chronic kidney failure. 7. Abnormal electrolytes. 8. Acute respiratory failure with hypoxia and hypercapnia. 9. Urinary tract infection. 10. Pneumonia. CONTRIBUTING DIAGNOSES: 1. History of breast cancer. 2. Chronic diastolic heart failure. 3. Hydronephrosis of right kidney. 4. Diabetes type 2. 5. Cirrhosis of liver. 6. Mitral regurgitation. 7. Dementia. 8. Chronic obstructive pulmonary disease. PRIMARY PROCEDURE/OPERATION: None. RADIOLOGICAL INVESTIGATION: Chest x-ray, CT abdomen and pelvis, repeat CT chest, several chest x-ray. SIGNIFICANT LABORATORY DATA: Hemoglobin 8.9. INR 1.6. Creatinine 1.75. Ammonia 103. DISCHARGE MEDICATION: Patient will continue all her discharge medications as per hospice team for comfort care. CONTRAINDICATION: None. CODE STATUS: DNR. INPATIENT CHUCK TENDER: Pulmonary group, Palliative Care group. TEST RESULT PENDING ON DISCHARGE: None. ALLERGIES: SULFA DRUGS. DISCHARGE PLAN: The patient is discharged to inpatient hospice for comfort care. HOSPITAL COURSE: Please see discharge summary dictated by Dr. Meng on June 06, 2019, for more detail. Subsequently, the patient was made DNR. The patient's condition continued to deteriorate. She was transferred to telemetry floor. We discussed with the family member about goal of care as the patient's condition was not improving and family member wanted to make her comfortable and that is why with help of geriatric case manager and Palliative Care, we arranged inpatient hospice. The patient was qualified for inpatient hospice and the patient is transferred there. Job ID: [id number]
[2019-06-10] MEDS ORDERED: Ferrous Sulfate 325 MG TAB PO SCH (08:00)
--- NOTE | 2019-06-10 15:28 | EKG ---
Test Reason : SOB Blood Pressure : / mmHG Vent. Rate : 128 BPM Atrial Rate : 288 BPM P-R Int : 000 ms QRS Dur : 080 ms QT Int : 282 ms P-R-T Axes : 000 002 -10 degrees QTc Int : 411 ms Atrial fibrillation with rapid ventricular response Possible Anterior infarct , age undetermined Abnormal ECG Confirmed by MILES JEAN-BAPTISTE ([id number]), editorial assistant DELMAR MACHADO ([id number]) on 06/10/2019 3:28:02 PM Referred By: Confirmed By:MILES JEAN-BAPTISTE
== END 2019-06-09 17:50 | disposition hospice, inpatient (51) | DRG 871 ==
LOC: ERS 17:44 → 2NO 22:43 → CCU 06-07 10:15 → 2NO 06-08 21:20
PROVIDERS: ADMIT Internal Medicine; ATTEND Internal Medicine
PROC: 3E02340 Introduction of Influenza Vaccine into Muscle, Percutaneous Approach (ICD-10-PCS; principal; 2019-05-20)
PROC: 3E0234Z Introduction of Serum, Toxoid and Vaccine into Muscle, Percutaneous Approach (ICD-10-PCS; 2019-05-20)
DX: A41.9 Sepsis, unspecified organism (principal); J96.01 Acute respiratory failure with hypoxia; J18.9 Pneumonia, unspecified organism; I50.33 Acute on chronic diastolic (congestive) heart failure; K72.00 Acute and subacute hepatic failure without coma; J96.02 Acute respiratory failure with hypercapnia; J44.0 Chronic obstructive pulmonary disease with (acute) lower respiratory infection; F10.188 Alcohol abuse with other alcohol-induced disorder; J44.1 Chronic obstructive pulmonary disease with (acute) exacerbation; D68.9 Coagulation defect, unspecified; N17.9 Acute kidney failure, unspecified; Z23 Encounter for immunization; K21.9 Gastro-esophageal reflux disease without esophagitis; I78.0 Hereditary hemorrhagic telangiectasia; M81.0 Age-related osteoporosis without current pathological fracture; K70.31 Alcoholic cirrhosis of liver with ascites; K22.70 Barrett's esophagus without dysplasia; I08.3 Combined rheumatic disorders of mitral, aortic and tricuspid valves; D69.59 Other secondary thrombocytopenia; Z51.5 Encounter for palliative care; E87.5 Hyperkalemia; R31.9 Hematuria, unspecified; R04.0 Epistaxis; Z66 Do not resuscitate; I48.0 Paroxysmal atrial fibrillation; F03.90 Unspecified dementia, unspecified severity, without behavioral disturbance, psychotic disturbance, mood disturbance, and anxiety; E11.9 Type 2 diabetes mellitus without complications; Z85.3 Personal history of malignant neoplasm of breast; Z87.891 Personal history of nicotine dependence; Z79.899 Other long term (current) drug therapy; Z88.5 Allergy status to narcotic agent; Z88.2 Allergy status to sulfonamides; Z86.718 Personal history of other venous thrombosis and embolism; Z86.711 Personal history of pulmonary embolism; K72.90 Hepatic failure, unspecified without coma; R65.20 Severe sepsis without septic shock
CPT/HCPCS: 36415; 36416; 51701; 71045; 71260; 74177; 76705; 80048; 80053; 80162; 81003; 81015; 82140; 82274; 82533; 82553; 82805; 83615; 83690; 83735; 83880; 84439; 84443; 84481; 84484; 85025; 85610; 85730; 86850; 86900; 86901; 87040; 87086; 90471; 90662; 93005; 94640; 96361; 96365; 96367; 96375; 96376; 99292; A4353; G0008; J0456; J0692; J0696; J1160; J1650; J1815; J1940; J2060; J2920; J2930; J3490; J7512; J7611; J7620; J7626; P9047; Q9967